=== PATIENT | female | born 1965 | race Caucasian/White ===

== ENCOUNTER → 2018-03-08 | Outpatient (CLI) | payer OTHER ==
[~2018-03-08] MED LIST: ACET325 GT; ACET325 PO; ACET325 PT; ACET325S PR; ACET325UDC PT; ACIDOPHILUS PR1 EAC1 PT; ALBU3IS INH; AMOCLA875 PO; AZIT250 PT; AZIT500 PO; BACL10; BACL10 GT; BACL10 PO; BACL10 PT; BISA10S PR; Banatrol1 EACH PO; CALCA400CH PO; CALCAVITD PO; CALMOSEPTINE; CALMOSEPTINE O3.5 GM TP; CAMPHETO TOP; CEFP200 PO; CEPH250SUA PO; CEPH500 PO; CEPH500 PT; CHLO10; CHLO10 PO; CHLORHEXIDINE FL1 ML; CHLORHEXIDINE FL1 ML PT; COPAXONE; COPAXONE SQ; COUMADIN; CVS DISPOSABLE399 ML PR; CYCL10 PT; Cephalexin250 MG/5 M PO; Cipro500 MG PO; Cleocin HCl150 MG PO; Colace100 MG PO; Coumadin5 MG PO; DICY20; DOC100SO PT; DOC250 PO; DOC250 PT; DOCU100 GT; DOCU100 PO; DOCU100 PT; DOCUSATE SODIUM; DOCUSATE SODIUM PT; DSS PT; DURAGESIC; Diflucan200 MG PO; Diflucan200 MG PT; Docu Liqui50 MG/5 ML PT; Duoneb 2.5-0.5 M3 ML INH; Duragesic 12 M12 MCG TD; ESOM20; ESOM20 GT; ESOM20 PO; FAMO40 PO; FENT25TP TOP; FENT50TP TOP; FENT75TP TOP; FERSU220EL PT; FLUC150A GT; FLUC150A PO; FLUC200 PO; FLUC200 PT; FLUO20 GT; FLUO20 PO; Flonase 0.05% N16 GM; Flovent Diskus50 MCG; GABA250SO GT; GABA250SO PO; GABA250SO PT; GABA300; GABA600 PO; GLYC2 PO; GOLD BOND MEDI TP; HEMOTC PR; HYDACE5 GT; HYDACE5 PO; HYDCOR1TC TOP; HYDR1TAB94 PO; HYDR1TAB94 PT; IBUP100S PT; IBUP400 PT; Ibuprofen Ib200 MG PO; JEVITY; JEVITY 1.2; JEVITY CA PT; Keflex500 MG PO; LACTOBACILLUS ACIDOP; LANS30EC PO; LANTISEPTIC OI113 GM; LANTISEPTIC400 GM TP; LAVAP17G PO; LAVAP17G PT; LEVO750 PT; LORA.5 PO; LORA.5 PT; LORA1 GT; LORA1 PO; LORA1 PT; Levaquin500 MG PT; METO25ER PO; METO5A PO; METO5A PT; METOPROLOL; MICO100S; MIDO5 PT; MOMCAS15 PO; MOMENI; MOMENI INH; MYLANTA; Milk Of Ma400 MG/5 M PR; Milk Of Ma400 MG/5 M PT; Mylanta Gas Ma125 MG PO; NAPR500 PO; NEBI5 PO; NEBI5 PT; NITR100; NITR100 PT; NORT10; NYST100P TOP; NYST100SU PT; NYSTATIN POWDER; NYSTATIN1 EAC1 TOP; OMEP20ER PO; POLY17UD GT; POLY17UD PO; POTA20LUD PT; PRED5 PO; PRED5 PT; PROACE100 PO; PROBIOTIC & AC1 EACH PT; PROM50S PR; PROP20 PO; PROP60 PO; Prevacid Soluta30 MG PT; Prozac20 MG PT; Questran4 GM PT; RXPROM25 PO; RXTRAM50 PO; SULTRIDS PO; SULTRIEL PO; SULTRIEL PT; Silvadene20 GM TOP; Spironolactone25 MG PT; Stool Softener100 MG PT; TETR.05OPS BOTHEYES; TRAM50 GT; TRAM50 PO; TRAM50 PT; TRIA55OI; TRIA80TC TOP; TRIPLE ANTIBIOTIC OI; Triple Antibio1 EACH TP; VICKS VAPOR RUB; Ventolin Soln3 ML INH; WARF1; WARF1 PO; WARF2; WARF2 PO; WARF2 PT; WARF2.5 PO; WARF3 PO; WARF5 GT; WARF5 PO; [UNRECOGNIZED DRUG - CODE]; [UNRECOGNIZED DRUG - REMARK]
[2018-03-08 15:34] LABS: Appearance, Urine Hazy (Clear); Bilirubin, Urine Neg (Neg); Blood, Urine 5+ (Neg); Color, Urine Red (P-Yellow); Glucose Qualitative, Urine Neg (Neg); Ketones, Urine Neg (Neg); Leukocyte Esterase, Urine Neg (Neg); Nitrite, Urine Neg (Neg); Protein, Urine 3+ (Neg); Specific Gravity, Urine 1.015 (1.003-1.022); Urobilinogen, Urine NORM (Normal)
[2018-03-08 15:40] LABS: Bacteria Many /hpf; Red Blood Cells, Urine TNTC /hpf (0-2); Squamous Epithelial Cells Not Seen /hpf (Few)
== END ==
LOC: LAB SHORT 15:26 → LAB 15:26
PROVIDERS: Legal Medicine
DX: Z53.9 Procedure and treatment not carried out, unspecified reason (principal)
CPT/HCPCS: 81001

== ENCOUNTER 2018-03-11 08:00 | Emergency (ER) | payer OTHER ==
[~2018-03-11] VITALS: Ht 170.2 cm; Wt 49.9 kg
[~2018-03-11 08:00] MED LIST changes: -CEPH250SUA PO
[2018-03-11] MEDS ORDERED: FENT50TP TOP (08:30)
[2018-03-11] MEDS ORDERED: CEPH250SUA PO (08:30)
[2018-03-11] MEDS ORDERED: HYDR1TAB94 PO (08:31)
[2018-03-11] MEDS ORDERED: TRAM50 PO (08:32)
[2018-03-11 09:49] LABS: BASOPHILS ABSOLUTE AUTO 0.05 K/mm3 (0.00-0.23); BASOPHILS PERCENT AUTO 1 % (0-2); EOSINOPHILS ABSOLUTE AUTO 0.16 K/mm3 (0.00-0.68); EOSINOPHILS PERCENT AUTO 2 % (0-6); Hematocrit 42.9 % (33.0-51.0); Hemoglobin 13.9 g/dL (11.5-16.0); IMMATURE GRAN ABSOLUTE AUTO 0.02 K/mm3 (0.00-0.10); IMMATURE GRAN PERCENT AUTO 0 % (0-1); LYMPHOCYTES ABSOLUTE AUTO 2.04 K/mm3 (0.84-5.20); LYMPHOCYTES PERCENT AUTO 25 % (21-46); MONOCYTES ABSOLUTE AUTO 0.57 K/mm3 (0.16-1.47); MONOCYTES PERCENT AUTO 7 % (4-13); Mean Corpuscular HGB 29.8 pg (26.0-34.0); Mean Corpuscular HGB Conc 32.4 g/dL (31.5-36.5); Mean Corpuscular Volume 92 fL (80-100); Mean Platelet Volume 8.9 fL (9.1-12.4); NEUTROPHILS ABSOLUTE AUTO 5.36 K/mm3 (1.96-9.15); NEUTROPHILS PERCENT AUTO 65 % (41-73); Platelet Count 217 K/mm3 (150-400); RDW Coefficient Variation 14.1 % (11.7-14.2); RDW Standard Deviation 47.7 fL (35.1-46.3); Red Blood Cell Count 4.67 M/mm3 (3.80-5.20)
[2018-03-11 09:59] LABS: International Normalized Ratio 1.15
[2018-03-11 10:11] LABS: Anion Gap 6 mmol/L (6-16); Blood Urea Nitrogen 10 mg/dL (8-24); Bun/Creatinine Ratio 35.7 (12.0-20.0); CO2, Blood 28 mmol/L (21-32); Calcium, Blood 9.1 mg/dL (8.5-10.1); Chloride, Blood 106 mmol/L (98-108); Creatinine, Blood 0.28 mg/dL (0.40-1.00); Glomerular Filtration Rate >60 (60-); Glucose, Blood 89 mg/dL (70-99); Potassium, Blood 3.9 mmol/L (3.5-5.5); Sodium, Blood 140 mmol/L (136-145)
== END 2018-03-11 12:14 | disposition home or self-care (01) ==
LOC: ER 08:00
PROVIDERS: Emergency Medicine
DX: N95.0 Postmenopausal bleeding (principal); R33.9 Retention of urine, unspecified; K21.9 Gastro-esophageal reflux disease without esophagitis; F32.9 Major depressive disorder, single episode, unspecified; F41.9 Anxiety disorder, unspecified; Z88.5 Allergy status to narcotic agent; Z87.01 Personal history of pneumonia (recurrent); Z86.711 Personal history of pulmonary embolism; Z79.899 Other long term (current) drug therapy; Z79.52 Long term (current) use of systemic steroids
CPT/HCPCS: 36415; 51702; 74177; 80048; 85025; 85610; 85730; 99284; Q9967

== ENCOUNTER → 2018-03-26 | Outpatient (CLI) | payer OTHER ==
[~2018-03-26] MED LIST changes: +CEPH250SUA PO
[2018-03-26 14:18] LABS: Bilirubin, Urine Neg (Neg); Blood, Urine 5+ (Neg); Glucose Qualitative, Urine Neg (Neg); Ketones, Urine Neg (Neg); Leukocyte Esterase, Urine 3+ (Neg); Nitrite, Urine Neg (Neg); Protein, Urine 1+ (Neg); Urobilinogen, Urine NORM (Normal)
[2018-03-26 14:24] LABS: Appearance, Urine Hazy (Clear); Color, Urine Yellow (P-Yellow)
[2018-03-26 14:27] LABS: Bacteria Many /hpf; Red Blood Cells, Urine 0-2 /hpf (0-2); Squamous Epithelial Cells Few /hpf (Few); White Blood Cells, Urine 25-50 /hpf (0-5)
== END ==
LOC: LAB SHORT 11:29 → OLS 11:29
PROVIDERS: Legal Medicine
DX: N39.0 Urinary tract infection, site not specified (principal)
CPT/HCPCS: 81001; 87077; 87086; 87186

== ENCOUNTER → 2018-04-14 | Outpatient (CLI) | payer OTHER ==
[2018-04-14 15:55] LABS: Appearance, Urine Hazy (Clear); Bilirubin, Urine Neg (Neg); Blood, Urine 3+ (Neg); Color, Urine Yellow (P-Yellow); Glucose Qualitative, Urine Neg (Neg); Ketones, Urine Neg (Neg); Leukocyte Esterase, Urine 3+ (Neg); Nitrite, Urine Neg (Neg); Protein, Urine 2+ (Neg); Urobilinogen, Urine NORM (Normal)
[2018-04-14 16:10] LABS: Bacteria Many /hpf; Squamous Epithelial Cells Few /hpf (Few)
== END ==
LOC: LAB SHORT 13:50 → LAB 13:50
PROVIDERS: Legal Medicine
DX: N39.0 Urinary tract infection, site not specified (principal)
CPT/HCPCS: 81001; 87077; 87086; 87186

== ENCOUNTER 2018-04-25 09:47 | Emergency (ER) | payer OTHER ==
[~2018-04-25] VITALS: Ht 170.2 cm; Wt 57.6 kg
[2018-04-25 10:49] LABS: BASOPHILS ABSOLUTE AUTO 0.04 K/mm3 (0.00-0.23); BASOPHILS PERCENT AUTO 0 % (0-2); EOSINOPHILS ABSOLUTE AUTO 0.09 K/mm3 (0.00-0.68); EOSINOPHILS PERCENT AUTO 1 % (0-6); IMMATURE GRAN ABSOLUTE AUTO 0.05 K/mm3 (0.00-0.10); IMMATURE GRAN PERCENT AUTO 0 % (0-1); LYMPHOCYTES ABSOLUTE AUTO 1.03 K/mm3 (0.84-5.20); LYMPHOCYTES PERCENT AUTO 9 % (21-46); MONOCYTES ABSOLUTE AUTO 0.82 K/mm3 (0.16-1.47); MONOCYTES PERCENT AUTO 7 % (4-13); Mean Corpuscular HGB 29.9 pg (26.0-34.0); Mean Corpuscular HGB Conc 33.3 g/dL (31.5-36.5); Mean Corpuscular Volume 90 fL (80-100); Mean Platelet Volume 9.3 fL (9.1-12.4); NEUTROPHILS ABSOLUTE AUTO 9.84 K/mm3 (1.96-9.15); NEUTROPHILS PERCENT AUTO 83 % (41-73); Platelet Count 206 K/mm3 (150-400); RDW Standard Deviation 46.3 fL (35.1-46.3); Red Blood Cell Count 5.01 M/mm3 (3.80-5.20); White Blood Cell Count 11.87 K/mm3 (4.00-11.30)
[2018-04-25] MEDS ORDERED: Cephalexin250 MG/5 M PO (11:46)
== END 2018-04-25 12:12 | disposition home or self-care (01) ==
LOC: ER 09:47
PROVIDERS: Emergency Medicine
DX: J40 Bronchitis, not specified as acute or chronic (principal); J98.4 Other disorders of lung; F32.9 Major depressive disorder, single episode, unspecified; F41.9 Anxiety disorder, unspecified; Z88.8 Allergy status to other drugs, medicaments and biological substances; Z79.899 Other long term (current) drug therapy; Z79.52 Long term (current) use of systemic steroids; Z79.01 Long term (current) use of anticoagulants
CPT/HCPCS: 36415; 71046; 85025; 99283

== ENCOUNTER 2018-05-04 09:09 | Inpatient (IN) | payer OTHER ==
[~2018-05-04] VITALS: Ht 170.2 cm; Wt 72.1 kg
[~2018-05-04 09:09] MED LIST changes: -LORA.5 PT
[2018-05-04 10:31] LABS: International Normalized Ratio 3.11
[2018-05-04 10:32] LABS: Alanine Aminotransfer (ALT/SGP 25 U/L (12-78); Albumin, Blood 1.7 g/dL (3.4-5.0); Albumin/Globulin Ratio 0.4 (0.8-1.8); Alk Phos 834 U/L (50-136); Anion Gap 10 mmol/L (6-16); Aspartate Aminotrans (AST/SGOT 30 U/L (12-37); Bilirubin, Total 0.7 mg/dL (0.1-1.0); Blood Urea Nitrogen 33 mg/dL (8-24); CO2, Blood 28 mmol/L (21-32); Calcium, Blood 9.3 mg/dL (8.5-10.1); Chloride, Blood 98 mmol/L (98-108); Creatinine, Blood 0.43 mg/dL (0.40-1.00); Globulin, Blood 4.4 g/dL (2.2-4.0); Glomerular Filtration Rate >60 (60-); Glucose, Blood 85 mg/dL (70-99); Potassium, Blood 4.1 mmol/L (3.5-5.5); Sodium, Blood 136 mmol/L (136-145); Total Protein, Blood 6.1 g/dL (6.4-8.2)
[2018-05-04 10:38] LABS: Hematocrit 36.1 % (33.0-51.0); Hemoglobin 11.8 g/dL (11.5-16.0); Mean Corpuscular HGB 29.9 pg (26.0-34.0); Mean Corpuscular HGB Conc 32.7 g/dL (31.5-36.5); Mean Corpuscular Volume 91 fL (80-100); Mean Platelet Volume 8.6 fL (9.1-12.4); NRBC ABSOLUTE 0.03 K/mm3 (0.00-0.02); NRBC Auto 0.3 /100 WBC (0.0-0.2); Platelet Count 118 K/mm3 (150-400); RDW Coefficient Variation 14.2 % (11.7-14.2); RDW Standard Deviation 48.1 fL (35.1-46.3); Red Blood Cell Count 3.95 M/mm3 (3.80-5.20); White Blood Cell Count 10.81 K/mm3 (4.00-11.30)
[2018-05-04 11:04] LABS: BAND PERCENT MAN 26 % (0-8); BASOPHILS PERCENT MAN 1 % (0-2); EOSINOPHILS PERCENT MAN 0 % (0-6); LYMPHOCYTES ABSOLUTE MAN 0.21 K/mm3 (0.84-5.20); LYMPHOCYTES PERCENT MAN 2 % (21-46); METAMYELOCYTE PERCENT MAN 1 % (0-0); MONOCYTES ABSOLUTE MAN 0.64 K/mm3 (0.16-1.47); MONOCYTES PERCENT MAN 6 % (4-13); NEUTROPHILS ABSOLUTE MAN 9.72 K/mm3 (1.96-9.15); SEG NEUTROPHILS PERCENT MAN 64 % (41-73); TOTAL CELLS COUNTED 100
[2018-05-05 05:04] LABS: BASOPHILS ABSOLUTE AUTO 0.02 K/mm3 (0.00-0.23); BASOPHILS PERCENT AUTO 0 % (0-2); EOSINOPHILS PERCENT AUTO 0 % (0-6); Hematocrit 29.2 % (33.0-51.0); Hemoglobin 9.3 g/dL (11.5-16.0); IMMATURE GRAN ABSOLUTE AUTO 0.29 K/mm3 (0.00-0.10); IMMATURE GRAN PERCENT AUTO 2 % (0-1); LYMPHOCYTES ABSOLUTE AUTO 0.66 K/mm3 (0.84-5.20); LYMPHOCYTES PERCENT AUTO 4 % (21-46); MONOCYTES ABSOLUTE AUTO 0.57 K/mm3 (0.16-1.47); MONOCYTES PERCENT AUTO 3 % (4-13); Mean Corpuscular HGB 29.4 pg (26.0-34.0); Mean Corpuscular HGB Conc 31.8 g/dL (31.5-36.5); Mean Corpuscular Volume 92 fL (80-100); Mean Platelet Volume 8.8 fL (9.1-12.4); NEUTROPHILS PERCENT AUTO 92 % (41-73); Platelet Count 148 K/mm3 (150-400); RDW Coefficient Variation 14.6 % (11.7-14.2); RDW Standard Deviation 49.8 fL (35.1-46.3); Red Blood Cell Count 3.16 M/mm3 (3.80-5.20); White Blood Cell Count 18.34 K/mm3 (4.00-11.30)
[2018-05-05 05:20] LABS: Anion Gap 6 mmol/L (6-16); Blood Urea Nitrogen 31 mg/dL (8-24); Bun/Creatinine Ratio 75.4 (12.0-20.0); CO2, Blood 30 mmol/L (21-32); Calcium, Blood 8.2 mg/dL (8.5-10.1); Chloride, Blood 108 mmol/L (98-108); Creatinine, Blood 0.41 mg/dL (0.40-1.00); Glomerular Filtration Rate >60 (60-); Glucose, Blood 130 mg/dL (70-99); Phosphorus, Blood 3.5 mg/dL (2.5-4.9); Potassium, Blood 4.5 mmol/L (3.5-5.5); Sodium, Blood 144 mmol/L (136-145)
[2018-05-05 05:25] LABS: International Normalized Ratio 5.68
[2018-05-05 10:28] LABS: Tobramycin, Random 1.5 ug/mL
[2018-05-06 06:01] LABS: BASOPHILS ABSOLUTE AUTO 0.02 K/mm3 (0.00-0.23); BASOPHILS PERCENT AUTO 0 % (0-2); EOSINOPHILS ABSOLUTE AUTO 0.07 K/mm3 (0.00-0.68); EOSINOPHILS PERCENT AUTO 1 % (0-6); Hematocrit 27.8 % (33.0-51.0); Hemoglobin 8.7 g/dL (11.5-16.0); IMMATURE GRAN ABSOLUTE AUTO 0.21 K/mm3 (0.00-0.10); IMMATURE GRAN PERCENT AUTO 2 % (0-1); LYMPHOCYTES PERCENT AUTO 13 % (21-46); MONOCYTES ABSOLUTE AUTO 0.74 K/mm3 (0.16-1.47); MONOCYTES PERCENT AUTO 6 % (4-13); Mean Corpuscular HGB 29.4 pg (26.0-34.0); Mean Corpuscular HGB Conc 31.3 g/dL (31.5-36.5); Mean Corpuscular Volume 94 fL (80-100); Mean Platelet Volume 8.5 fL (9.1-12.4); NEUTROPHILS ABSOLUTE AUTO 9.65 K/mm3 (1.96-9.15); NEUTROPHILS PERCENT AUTO 79 % (41-73); Platelet Count 146 K/mm3 (150-400); RDW Coefficient Variation 14.9 % (11.7-14.2); RDW Standard Deviation 50.5 fL (35.1-46.3); Red Blood Cell Count 2.96 M/mm3 (3.80-5.20); White Blood Cell Count 12.29 K/mm3 (4.00-11.30)
[2018-05-06 06:18] LABS: Anion Gap 6 mmol/L (6-16); Blood Urea Nitrogen 27 mg/dL (8-24); Bun/Creatinine Ratio 86.3 (12.0-20.0); CO2, Blood 32 mmol/L (21-32); Calcium, Blood 8.2 mg/dL (8.5-10.1); Chloride, Blood 110 mmol/L (98-108); Creatinine, Blood 0.31 mg/dL (0.40-1.00); Glomerular Filtration Rate >60 (60-); Glucose, Blood 86 mg/dL (70-99); Magnesium, Blood 1.8 mg/dL (1.6-2.4); Phosphorus, Blood 2.5 mg/dL (2.5-4.9); Potassium, Blood 3.6 mmol/L (3.5-5.5); Sodium, Blood 148 mmol/L (136-145)
[2018-05-06 06:27] LABS: International Normalized Ratio 5.56
[2018-05-06 10:38] LABS: Tobramycin, Random 1.2 ug/mL
[2018-05-07 04:07] LABS: BASOPHILS ABSOLUTE AUTO 0.02 K/mm3 (0.00-0.23); BASOPHILS PERCENT AUTO 0 % (0-2); EOSINOPHILS PERCENT AUTO 1 % (0-6); Hematocrit 29.2 % (33.0-51.0); Hemoglobin 9.1 g/dL (11.5-16.0); Mean Corpuscular HGB 28.9 pg (26.0-34.0); Mean Corpuscular HGB Conc 31.2 g/dL (31.5-36.5); Mean Corpuscular Volume 93 fL (80-100); Mean Platelet Volume 8.8 fL (9.1-12.4); Platelet Count 192 K/mm3 (150-400); RDW Coefficient Variation 14.6 % (11.7-14.2); RDW Standard Deviation 49.5 fL (35.1-46.3); Red Blood Cell Count 3.15 M/mm3 (3.80-5.20); White Blood Cell Count 10.79 K/mm3 (4.00-11.30)
[2018-05-07 04:09] LABS: IMMATURE GRAN ABSOLUTE AUTO 0.21 K/mm3 (0.00-0.10); IMMATURE GRAN PERCENT AUTO 2 % (0-1); LYMPHOCYTES ABSOLUTE AUTO 1.95 K/mm3 (0.84-5.20); LYMPHOCYTES PERCENT AUTO 18 % (21-46); MONOCYTES ABSOLUTE AUTO 0.56 K/mm3 (0.16-1.47); MONOCYTES PERCENT AUTO 5 % (4-13); NEUTROPHILS ABSOLUTE AUTO 7.95 K/mm3 (1.96-9.15); NEUTROPHILS PERCENT AUTO 74 % (41-73)
[2018-05-07 04:22] LABS: Anion Gap 4 mmol/L (6-16); Blood Urea Nitrogen 23 mg/dL (8-24); Bun/Creatinine Ratio 86.1 (12.0-20.0); CO2, Blood 34 mmol/L (21-32); Calcium, Blood 7.9 mg/dL (8.5-10.1); Chloride, Blood 110 mmol/L (98-108); Creatinine, Blood 0.27 mg/dL (0.40-1.00); Glomerular Filtration Rate >60 (60-); Glucose, Blood 98 mg/dL (70-99); Magnesium, Blood 1.6 mg/dL (1.6-2.4); Phosphorus, Blood 2.6 mg/dL (2.5-4.9); Potassium, Blood 3.2 mmol/L (3.5-5.5); Sodium, Blood 148 mmol/L (136-145)
[2018-05-07 04:25] LABS: Prothrombin Time Results 49.7 Sec (9.7-11.5)
[2018-05-07 04:26] LABS: International Normalized Ratio 5.3
[2018-05-08 04:34] LABS: International Normalized Ratio 2.19; Prothrombin Time Results 21.6 Sec (9.7-11.5)
[2018-05-08 09:43] LABS: Anion Gap 6 mmol/L (6-16); Blood Urea Nitrogen 17 mg/dL (8-24); CO2, Blood 33 mmol/L (21-32); Calcium, Blood 7.9 mg/dL (8.5-10.1); Chloride, Blood 110 mmol/L (98-108); Creatinine, Blood 0.29 mg/dL (0.40-1.00); Glomerular Filtration Rate >60 (60-); Glucose, Blood 91 mg/dL (70-99); Potassium, Blood 3.4 mmol/L (3.5-5.5); Sodium, Blood 149 mmol/L (136-145)
[2018-05-09 04:14] LABS: International Normalized Ratio 1.48; Prothrombin Time Results 14.9 Sec (9.7-11.5)
[2018-05-09 08:22] LABS: Anion Gap 7 mmol/L (6-16); Blood Urea Nitrogen 11 mg/dL (8-24); Bun/Creatinine Ratio 35.9 (12.0-20.0); CO2, Blood 32 mmol/L (21-32); Calcium, Blood 8.3 mg/dL (8.5-10.1); Chloride, Blood 108 mmol/L (98-108); Creatinine, Blood 0.31 mg/dL (0.40-1.00); Glomerular Filtration Rate >60 (60-); Glucose, Blood 146 mg/dL (70-99); Potassium, Blood 3.6 mmol/L (3.5-5.5); Sodium, Blood 147 mmol/L (136-145)
[2018-05-09] MEDS ORDERED: LORA1 PT (09:28)
[2018-05-09] MEDS ORDERED: BISA10S PR (09:29)
[2018-05-09] MEDS ORDERED: Docu Liqui50 MG/5 ML PO (09:30)
[2018-05-09] MEDS ORDERED: FENT50TP TOP (09:33)
[2018-05-09] MEDS ORDERED: FERROUS SU220 MG/51 PO (09:36)
[2018-05-09] MEDS ORDERED: NYSTRITC TOP (09:44)
[2018-05-09] MEDS ORDERED: NITR100CA PO (09:47)
[2018-05-09] MEDS ORDERED: LORA.5 PT (09:53)
[2018-05-09] MEDS ORDERED: Acidophilus La100 GM PT (21:49)
[2018-05-09] MEDS ORDERED: Metoclopramide H5 MG PO (21:53)
== END 2018-05-09 11:27 | disposition home or self-care (01) | DRG 871 ==
LOC: ER 09:09 → PCU 12:11 → MEDS 12:11 → PCU 14:30
PROVIDERS: Emergency Medicine; Hospitalist; Internal Medicine
DX: A41.50 Gram-negative sepsis, unspecified (principal); J18.9 Pneumonia, unspecified organism; R53.2 Functional quadriplegia; N39.0 Urinary tract infection, site not specified; R65.20 Severe sepsis without septic shock; Z66 Do not resuscitate; Z99.3 Dependence on wheelchair; Z87.01 Personal history of pneumonia (recurrent); F41.8 Other specified anxiety disorders; J98.6 Disorders of diaphragm; G35 Multiple sclerosis; K21.9 Gastro-esophageal reflux disease without esophagitis; G90.4 Autonomic dysreflexia; Z79.01 Long term (current) use of anticoagulants; N20.0 Calculus of kidney; Z86.718 Personal history of other venous thrombosis and embolism; Z79.52 Long term (current) use of systemic steroids; G90.9 Disorder of the autonomic nervous system, unspecified
CPT/HCPCS: 31720; 36415; 71045; 76770; 80048; 80053; 80200; 82947; 83605; 83735; 84100; 85025; 85610; 85730; 87040; 87077; 87086; 87186; 93005; 93010; 94640; 94762; 96365; 96367; 99285; C1751; J0696; J0713; J1956; J2405; J3010; J3260; J7030; J7120

== ENCOUNTER 2018-05-09 17:27 | Inpatient (IN) | payer OTHER ==
[~2018-05-09] VITALS: Ht 160 cm; Wt 60.9 kg
[~2018-05-09 17:27] MED LIST changes: +Docu Liqui50 MG/5 ML PO; +FERROUS SU220 MG/51 PO; -LANTISEPTIC OI113 GM; +LANTISEPTIC OI113 GM TOP; +LORA.5 PT; -Milk Of Ma400 MG/5 M PR; +Milk Of Magnesia PT; +NITR100CA PO; +NYSTRITC TOP; -PRED5 PO; +Tetrahydrozolin15 ML BOTHEYES
[2018-05-09 18:43] LABS: PO2 Arterial 63.1 mmHg (80-100); pH Blood Arterial 7.47 (7.35-7.45)
[2018-05-09] MEDS ORDERED: Acidophilus La100 GM PT (21:49)
[2018-05-09] MEDS ORDERED: Metoclopramide H5 MG PO (21:53)
[2018-05-10 04:47] LABS: BASOPHILS ABSOLUTE AUTO 0.03 K/mm3 (0.00-0.23); BASOPHILS PERCENT AUTO 0 % (0-2); EOSINOPHILS ABSOLUTE AUTO 0.09 K/mm3 (0.00-0.68); EOSINOPHILS PERCENT AUTO 1 % (0-6); Hematocrit 34.1 % (33.0-51.0); Hemoglobin 10.6 g/dL (11.5-16.0); IMMATURE GRAN ABSOLUTE AUTO 0.13 K/mm3 (0.00-0.10); IMMATURE GRAN PERCENT AUTO 1 % (0-1); LYMPHOCYTES ABSOLUTE AUTO 1.97 K/mm3 (0.84-5.20); LYMPHOCYTES PERCENT AUTO 15 % (21-46); MONOCYTES ABSOLUTE AUTO 0.49 K/mm3 (0.16-1.47); MONOCYTES PERCENT AUTO 4 % (4-13); Mean Corpuscular HGB 28.7 pg (26.0-34.0); Mean Corpuscular HGB Conc 31.1 g/dL (31.5-36.5); Mean Corpuscular Volume 92 fL (80-100); Mean Platelet Volume 8.3 fL (9.1-12.4); NEUTROPHILS ABSOLUTE AUTO 10.33 K/mm3 (1.96-9.15); NEUTROPHILS PERCENT AUTO 79 % (41-73); Platelet Count 307 K/mm3 (150-400); RDW Coefficient Variation 15.1 % (11.7-14.2); RDW Standard Deviation 49.4 fL (35.1-46.3); Red Blood Cell Count 3.69 M/mm3 (3.80-5.20); White Blood Cell Count 13.04 K/mm3 (4.00-11.30)
[2018-05-10 04:59] LABS: International Normalized Ratio 1.27; Prothrombin Time Results 12.9 Sec (9.7-11.5)
[2018-05-10 05:14] LABS: Anion Gap 7 mmol/L (6-16); Blood Urea Nitrogen 10 mg/dL (8-24); Bun/Creatinine Ratio 35.7 (12.0-20.0); CO2, Blood 29 mmol/L (21-32); Calcium, Blood 8.2 mg/dL (8.5-10.1); Chloride, Blood 110 mmol/L (98-108); Creatinine, Blood 0.28 mg/dL (0.40-1.00); Glomerular Filtration Rate >60 (60-); Glucose, Blood 91 mg/dL (70-99); Potassium, Blood 4.4 mmol/L (3.5-5.5); Sodium, Blood 146 mmol/L (136-145)
[2018-05-10 05:24] LABS: Percent Saturation 11.3 % (15.0-50.0)
[2018-05-11 03:57] LABS: BASOPHILS ABSOLUTE AUTO 0.05 K/mm3 (0.00-0.23); BASOPHILS PERCENT AUTO 0 % (0-2); EOSINOPHILS ABSOLUTE AUTO 0.11 K/mm3 (0.00-0.68); EOSINOPHILS PERCENT AUTO 1 % (0-6); Hemoglobin 10.7 g/dL (11.5-16.0); IMMATURE GRAN ABSOLUTE AUTO 0.08 K/mm3 (0.00-0.10); IMMATURE GRAN PERCENT AUTO 1 % (0-1); LYMPHOCYTES ABSOLUTE AUTO 2.09 K/mm3 (0.84-5.20); LYMPHOCYTES PERCENT AUTO 18 % (21-46); MONOCYTES ABSOLUTE AUTO 0.58 K/mm3 (0.16-1.47); MONOCYTES PERCENT AUTO 5 % (4-13); Mean Corpuscular HGB 29.5 pg (26.0-34.0); Mean Corpuscular HGB Conc 31.5 g/dL (31.5-36.5); Mean Corpuscular Volume 94 fL (80-100); Mean Platelet Volume 8.4 fL (9.1-12.4); NEUTROPHILS ABSOLUTE AUTO 8.95 K/mm3 (1.96-9.15); NEUTROPHILS PERCENT AUTO 76 % (41-73); Platelet Count 332 K/mm3 (150-400); RDW Coefficient Variation 15.3 % (11.7-14.2); RDW Standard Deviation 51.1 fL (35.1-46.3); Red Blood Cell Count 3.63 M/mm3 (3.80-5.20); White Blood Cell Count 11.86 K/mm3 (4.00-11.30)
[2018-05-11 04:10] LABS: International Normalized Ratio 1.53; Prothrombin Time Results 15.4 Sec (9.7-11.5)
[2018-05-11 04:11] LABS: Albumin, Blood 2.2 g/dL (3.4-5.0); Anion Gap 7 mmol/L (6-16); Blood Urea Nitrogen 8 mg/dL (8-24); Bun/Creatinine Ratio 30.2 (12.0-20.0); CO2, Blood 29 mmol/L (21-32); Calcium, Blood 7.9 mg/dL (8.5-10.1); Chloride, Blood 110 mmol/L (98-108); Creatinine, Blood 0.27 mg/dL (0.40-1.00); Glomerular Filtration Rate >60 (60-); Glucose, Blood 129 mg/dL (70-99); Phosphorus, Blood 3.1 mg/dL (2.5-4.9); Potassium, Blood 3.4 mmol/L (3.5-5.5); Sodium, Blood 146 mmol/L (136-145)
[2018-05-12 03:50] LABS: BASOPHILS ABSOLUTE AUTO 0.04 K/mm3 (0.00-0.23); BASOPHILS PERCENT AUTO 0 % (0-2); EOSINOPHILS ABSOLUTE AUTO 0.13 K/mm3 (0.00-0.68); EOSINOPHILS PERCENT AUTO 1 % (0-6); Hematocrit 34.9 % (33.0-51.0); Hemoglobin 10.8 g/dL (11.5-16.0); IMMATURE GRAN ABSOLUTE AUTO 0.07 K/mm3 (0.00-0.10); IMMATURE GRAN PERCENT AUTO 1 % (0-1); LYMPHOCYTES ABSOLUTE AUTO 2.22 K/mm3 (0.84-5.20); LYMPHOCYTES PERCENT AUTO 18 % (21-46); MONOCYTES ABSOLUTE AUTO 0.64 K/mm3 (0.16-1.47); MONOCYTES PERCENT AUTO 5 % (4-13); Mean Corpuscular HGB Conc 30.9 g/dL (31.5-36.5); Mean Corpuscular Volume 94 fL (80-100); Mean Platelet Volume 8.3 fL (9.1-12.4); NEUTROPHILS ABSOLUTE AUTO 9.28 K/mm3 (1.96-9.15); NEUTROPHILS PERCENT AUTO 75 % (41-73); Platelet Count 335 K/mm3 (150-400); RDW Coefficient Variation 15.2 % (11.7-14.2); RDW Standard Deviation 51.1 fL (35.1-46.3); Red Blood Cell Count 3.73 M/mm3 (3.80-5.20); White Blood Cell Count 12.38 K/mm3 (4.00-11.30)
[2018-05-12 04:03] LABS: International Normalized Ratio 1.47; Prothrombin Time Results 14.8 Sec (9.7-11.5)
[2018-05-12 04:08] LABS: Anion Gap 7 mmol/L (6-16); Blood Urea Nitrogen 10 mg/dL (8-24); Bun/Creatinine Ratio 41.3 (12.0-20.0); CO2, Blood 27 mmol/L (21-32); Calcium, Blood 8.2 mg/dL (8.5-10.1); Chloride, Blood 110 mmol/L (98-108); Creatinine, Blood 0.24 mg/dL (0.40-1.00); Glomerular Filtration Rate >60 (60-); Glucose, Blood 127 mg/dL (70-99); Sodium, Blood 144 mmol/L (136-145)
[2018-05-13 04:06] LABS: BASOPHILS ABSOLUTE AUTO 0.03 K/mm3 (0.00-0.23); BASOPHILS PERCENT AUTO 0 % (0-2); EOSINOPHILS PERCENT AUTO 1 % (0-6); Hemoglobin 11.1 g/dL (11.5-16.0); IMMATURE GRAN ABSOLUTE AUTO 0.05 K/mm3 (0.00-0.10); IMMATURE GRAN PERCENT AUTO 0 % (0-1); LYMPHOCYTES ABSOLUTE AUTO 2.23 K/mm3 (0.84-5.20); LYMPHOCYTES PERCENT AUTO 20 % (21-46); MONOCYTES ABSOLUTE AUTO 0.62 K/mm3 (0.16-1.47); MONOCYTES PERCENT AUTO 6 % (4-13); Mean Corpuscular HGB 29.5 pg (26.0-34.0); Mean Corpuscular HGB Conc 31.7 g/dL (31.5-36.5); Mean Corpuscular Volume 93 fL (80-100); Mean Platelet Volume 8.3 fL (9.1-12.4); NEUTROPHILS ABSOLUTE AUTO 8.09 K/mm3 (1.96-9.15); NEUTROPHILS PERCENT AUTO 73 % (41-73); Platelet Count 394 K/mm3 (150-400); RDW Coefficient Variation 15.1 % (11.7-14.2); RDW Standard Deviation 50.4 fL (35.1-46.3); Red Blood Cell Count 3.76 M/mm3 (3.80-5.20); White Blood Cell Count 11.12 K/mm3 (4.00-11.30)
[2018-05-13 04:23] LABS: International Normalized Ratio 1.75; Prothrombin Time Results 17.5 Sec (9.7-11.5)
[2018-05-13 04:25] LABS: Alanine Aminotransfer (ALT/SGP 20 U/L (12-78); Albumin, Blood 2.5 g/dL (3.4-5.0); Albumin/Globulin Ratio 0.7 (0.8-1.8); Alk Phos 215 U/L (50-136); Anion Gap 8 mmol/L (6-16); Aspartate Aminotrans (AST/SGOT 18 U/L (12-37); Bilirubin, Total 0.2 mg/dL (0.1-1.0); Blood Urea Nitrogen 9 mg/dL (8-24); Bun/Creatinine Ratio 35.4 (12.0-20.0); CO2, Blood 26 mmol/L (21-32); Calcium, Blood 8.4 mg/dL (8.5-10.1); Chloride, Blood 110 mmol/L (98-108); Creatinine, Blood 0.25 mg/dL (0.40-1.00); Globulin, Blood 3.7 g/dL (2.2-4.0); Glomerular Filtration Rate >60 (60-); Glucose, Blood 107 mg/dL (70-99); Potassium, Blood 3.8 mmol/L (3.5-5.5); Sodium, Blood 144 mmol/L (136-145); Total Protein, Blood 6.2 g/dL (6.4-8.2)
[2018-05-14 05:17] LABS: BASOPHILS ABSOLUTE AUTO 0.05 K/mm3 (0.00-0.23); BASOPHILS PERCENT AUTO 0 % (0-2); EOSINOPHILS ABSOLUTE AUTO 0.09 K/mm3 (0.00-0.68); EOSINOPHILS PERCENT AUTO 1 % (0-6); Hematocrit 34.7 % (33.0-51.0); Hemoglobin 10.7 g/dL (11.5-16.0); IMMATURE GRAN ABSOLUTE AUTO 0.03 K/mm3 (0.00-0.10); IMMATURE GRAN PERCENT AUTO 0 % (0-1); LYMPHOCYTES ABSOLUTE AUTO 2.31 K/mm3 (0.84-5.20); LYMPHOCYTES PERCENT AUTO 20 % (21-46); MONOCYTES ABSOLUTE AUTO 0.68 K/mm3 (0.16-1.47); MONOCYTES PERCENT AUTO 6 % (4-13); Mean Corpuscular HGB 28.5 pg (26.0-34.0); Mean Corpuscular HGB Conc 30.8 g/dL (31.5-36.5); Mean Corpuscular Volume 92 fL (80-100); Mean Platelet Volume 8.8 fL (9.1-12.4); NEUTROPHILS ABSOLUTE AUTO 8.59 K/mm3 (1.96-9.15); NEUTROPHILS PERCENT AUTO 73 % (41-73); Platelet Count 328 K/mm3 (150-400); RDW Coefficient Variation 15.3 % (11.7-14.2); RDW Standard Deviation 50.4 fL (35.1-46.3); Red Blood Cell Count 3.76 M/mm3 (3.80-5.20); White Blood Cell Count 11.75 K/mm3 (4.00-11.30)
[2018-05-14 05:27] LABS: International Normalized Ratio 2.07; Prothrombin Time Results 20.5 Sec (9.7-11.5)
[2018-05-14 06:23] LABS: Alanine Aminotransfer (ALT/SGP 20 U/L (12-78); Albumin, Blood 2.5 g/dL (3.4-5.0); Albumin/Globulin Ratio 0.6 (0.8-1.8); Alk Phos 208 U/L (50-136); Anion Gap 7 mmol/L (6-16); Aspartate Aminotrans (AST/SGOT 13 U/L (12-37); Bilirubin, Total 0.2 mg/dL (0.1-1.0); Blood Urea Nitrogen 14 mg/dL (8-24); Bun/Creatinine Ratio 59.1 (12.0-20.0); CO2, Blood 29 mmol/L (21-32); Calcium, Blood 8.4 mg/dL (8.5-10.1); Chloride, Blood 109 mmol/L (98-108); Creatinine, Blood 0.24 mg/dL (0.40-1.00); Glomerular Filtration Rate >60 (60-); Glucose, Blood 90 mg/dL (70-99); Potassium, Blood 3.7 mmol/L (3.5-5.5); Sodium, Blood 145 mmol/L (136-145); Total Protein, Blood 6.5 g/dL (6.4-8.2)
[2018-05-14 06:26] LABS: Percent Saturation 13.8 % (15.0-50.0)
[2018-05-15 05:50] LABS: International Normalized Ratio 2.26; Prothrombin Time Results 22.2 Sec (9.7-11.5)
[2018-05-15] MEDS ORDERED: AMOCLA250S PT (11:55)
== END 2018-05-15 13:59 | DRG 871 ==
LOC: ER 17:27 → PCU 17:28 → MEDS 05-13 11:30 → ENPENDDIS 05-15 10:30 → MEDS 05-15 13:59
PROVIDERS: Internal Medicine
DX: A41.52 Sepsis due to Pseudomonas (principal); J69.0 Pneumonitis due to inhalation of food and vomit; J96.21 Acute and chronic respiratory failure with hypoxia; R53.2 Functional quadriplegia; N39.0 Urinary tract infection, site not specified; G35 Multiple sclerosis; I95.9 Hypotension, unspecified; Z93.0 Tracheostomy status; G90.4 Autonomic dysreflexia; D64.9 Anemia, unspecified; E87.6 Hypokalemia; K21.9 Gastro-esophageal reflux disease without esophagitis; B96.1 Klebsiella pneumoniae [K. pneumoniae] as the cause of diseases classified elsewhere; Z66 Do not resuscitate; Z79.01 Long term (current) use of anticoagulants; Z79.899 Other long term (current) drug therapy; Z86.718 Personal history of other venous thrombosis and embolism; Z90.49 Acquired absence of other specified parts of digestive tract; Z87.440 Personal history of urinary (tract) infections; Z87.01 Personal history of pneumonia (recurrent); Z88.8 Allergy status to other drugs, medicaments and biological substances
CPT/HCPCS: 31720; 36415; 36600; 71045; 80048; 80053; 80069; 82728; 82803; 83540; 83550; 83605; 83735; 84439; 84443; 85025; 85610; 94640; 94760; 94762; 99285-25; C1751; C9113; G0378; J0696; J1650; J2543; J7030

== ENCOUNTER → 2018-05-23 | Outpatient (CLI) | payer OTHER ==
[~2018-05-23] MED LIST changes: +AMOCLA250S PT; +Acidophilus La100 GM PT; +Metoclopramide H5 MG PO
== END | disposition home or self-care (01) ==
LOC: LAB SHORT 05:00 → LAB 05:00
DX: R19.7 Diarrhea, unspecified (principal)
CPT/HCPCS: 87493

== ENCOUNTER → 2018-12-18 | Outpatient (CLI) | payer OTHER ==
[~2018-12-18] MED LIST changes: +**INCOMPLETE MED REC; +A AND D OINTM42.5 GM TOP; +ACIDOPHILUS PR1 EACH PT; +ALBU3IS NEB; +ALUM-MAG HYDRO360 ML PT; +ANTIFUNGAL CREA14 GM TOP; -Acidophilus La100 GM PT; +Artificial Tear15 M4 BOTHEYES; +BACTRIM PT; +CALMOSEPTINE TOP; +CEFP200 PT; +Cyclobenzaprine5 MG PT; +EAR WAX DROPS15 ML BOTHEARS; +FENTANYL1 EAC1 TD; +HYDROCORTISON28.4 G3 TOP; +Kenalog60 ML TOP; -LANTISEPTIC OI113 GM TOP; +LANTISEPTIC TOP; +MIRALAX17 GM PT; +Macrobid 100 M100 MG PT; -Milk Of Magnesia PT; +Pedi-Dri 100,0060 GM TOP; +Preparation H C26 GM PR; -TRIA80TC TOP; +TRIPLE ANTIBIO1 EACH TOP
== END | disposition home or self-care (01) ==
LOC: LAB SHORT 15:30 → LAB 15:30
DX: J95.00 Unspecified tracheostomy complication (principal); J20.8 Acute bronchitis due to other specified organisms
CPT/HCPCS: 87070; 87077; 87185; 87186; 87205

== ENCOUNTER 2018-12-30 15:00 | Inpatient (IN) | payer OTHER ==
[~2018-12-30] VITALS: Ht 170.2 cm; Wt 64.6 kg
[~2018-12-30 15:00] MED LIST changes: -**INCOMPLETE MED REC; -A AND D OINTM42.5 GM TOP; -ACET325 PT; -ACIDOPHILUS PR1 EACH PT; -ALBU3IS NEB; -ALUM-MAG HYDRO360 ML PT; -ANTIFUNGAL CREA14 GM TOP; -Artificial Tear15 M4 BOTHEYES; -BACTRIM PT; -CALMOSEPTINE TOP; -Cyclobenzaprine5 MG PT; -Docu Liqui50 MG/5 ML PO; -EAR WAX DROPS15 ML BOTHEARS; -FENTANYL1 EAC1 TD; -FERROUS SU220 MG/51 PO; -GABA250SO PT; -HYDROCORTISON28.4 G3 TOP; -Kenalog60 ML TOP; -LANTISEPTIC TOP; -MIDO5 PT; -MIRALAX17 GM PT; -Macrobid 100 M100 MG PT; -Metoclopramide H5 MG PO; -POTA20LUD PT; -Pedi-Dri 100,0060 GM TOP; -Preparation H C26 GM PR; -Prevacid Soluta30 MG PT; -TRIPLE ANTIBIO1 EACH TOP; -WARF2
[2018-12-30] MEDS ORDERED: BACTRIM PT (15:25)
[2018-12-30 16:57] LABS: BASOPHILS ABSOLUTE AUTO 0.11 K/mm3 (0.00-0.23); BASOPHILS PERCENT AUTO 0 % (0-2); EOSINOPHILS ABSOLUTE AUTO 0.02 K/mm3 (0.00-0.68); EOSINOPHILS PERCENT AUTO 0 % (0-6); Hematocrit 48.5 % (33.0-51.0); IMMATURE GRAN ABSOLUTE AUTO 0.48 K/mm3 (0.00-0.10); IMMATURE GRAN PERCENT AUTO 2 % (0-1); LYMPHOCYTES ABSOLUTE AUTO 0.42 K/mm3 (0.84-5.20); LYMPHOCYTES PERCENT AUTO 2 % (21-46); MONOCYTES ABSOLUTE AUTO 1.31 K/mm3 (0.16-1.47); MONOCYTES PERCENT AUTO 5 % (4-13); Mean Corpuscular HGB 28.1 pg (26.0-34.0); Mean Corpuscular HGB Conc 30.9 g/dL (31.5-36.5); Mean Corpuscular Volume 91 fL (80-100); Mean Platelet Volume 10.2 fL (9.1-12.4); NEUTROPHILS ABSOLUTE AUTO 26.38 K/mm3 (1.96-9.15); NEUTROPHILS PERCENT AUTO 92 % (41-73); Platelet Count 99 K/mm3 (150-400); RDW Coefficient Variation 18.1 % (11.7-14.2); Red Blood Cell Count 5.33 M/mm3 (3.80-5.20); White Blood Cell Count 28.72 K/mm3 (4.00-11.30)
[2018-12-30 17:36] LABS: Alanine Aminotransfer (ALT/SGP 106 U/L (12-78); Albumin, Blood 2.4 g/dL (3.4-5.0); Albumin/Globulin Ratio 0.5 (0.8-1.8); Alk Phos 671 U/L (50-136); Anion Gap 5 mmol/L (6-16); Aspartate Aminotrans (AST/SGOT 66 U/L (12-37); Blood Urea Nitrogen 18 mg/dL (8-24); Bun/Creatinine Ratio 39.9 (12.0-20.0); CO2, Blood 27 mmol/L (21-32); Calcium, Blood 9.5 mg/dL (8.5-10.1); Chloride, Blood 100 mmol/L (98-108); Creatinine, Blood 0.45 mg/dL (0.40-1.00); Globulin, Blood 4.9 g/dL (2.2-4.0); Glomerular Filtration Rate >60 (60-); Glucose, Blood 106 mg/dL (70-99); Sodium, Blood 132 mmol/L (136-145); Total Protein, Blood 7.3 g/dL (6.4-8.2)
[2018-12-30 18:25] LABS: Chloride (POC) 105 mmol/L (98-108); Creatinine (POC) 0.5 mg/dL (0.6-1.0); Glucose (ISTAT POC) 96 mg/dL (70-99); Potassium (POC) 6.4 mmol/L (3.5-5.5); Sodium (POC) 132 mmol/L (135-148); Total CO2 (POC) 26 mmol/L (21-32)
[2018-12-30 18:27] LABS: Adenovirus Not Detected (NOT DETECT); Bordetella pertussis Not Detected (NOT DETECT); Chlamydophila pneumoniae Not Detected (NOT DETECT); Coronavirus 229E Not Detected (NOT DETECT); Coronavirus HKU1 Not Detected (NOT DETECT); Coronavirus NL63 Not Detected (NOT DETECT); Coronavirus OC43 Not Detected (NOT DETECT); Human Metapneumovirus Not Detected (NOT DETECT); Human Rhinovirus/Enterovirus Not Detected (NOT DETECT); Influenza A Not Detected (NOT DETECT); Influenza A/2009-H1 Not Detected (NOT DETECT); Influenza A/H1 Not Detected (NOT DETECT); Influenza A/H3 Not Detected (NOT DETECT); Influenza B Not Detected (NOT DETECT); Mycoplasma pneumoniae Not Detected (NOT DETECT); Parainfluenza Virus 1 Not Detected (NOT DETECT); Parainfluenza Virus 2 Not Detected (NOT DETECT); Parainfluenza Virus 3 Not Detected (NOT DETECT); Parainfluenza Virus 4 Not Detected (NOT DETECT); Respiratory Syncytial Virus Not Detected (NOT DETECT)
[2018-12-30] MEDS ORDERED: **INCOMPLETE MED REC (19:00)
[2018-12-30] MEDS ORDERED: ACET325 PT (19:06)
[2018-12-30] MEDS ORDERED: ALBU3IS NEB (19:09)
[2018-12-30] MEDS ORDERED: BISA10S PR (19:11)
[2018-12-30] MEDS ORDERED: Docu Liqui50 MG/5 ML PO (19:14)
[2018-12-30] MEDS ORDERED: FENTANYL1 EAC1 TD (19:16)
[2018-12-30] MEDS ORDERED: FERROUS SU220 MG/51 PO (19:17)
[2018-12-30] MEDS ORDERED: Cyclobenzaprine5 MG PT (19:18)
[2018-12-30] MEDS ORDERED: Flonase 0.05% N16 GM (19:23)
[2018-12-30] MEDS ORDERED: GABA250SO PT (19:24)
[2018-12-30] MEDS ORDERED: ACIDOPHILUS PR1 EACH PO (19:25)
[2018-12-30] MEDS ORDERED: Prevacid Soluta30 MG PT (19:26)
[2018-12-30] MEDS ORDERED: Metoclopramide H5 MG PO (19:28)
[2018-12-30] MEDS ORDERED: MIDO5 PT (19:28)
[2018-12-30] MEDS ORDERED: Milk Of Ma400 MG/5 M PT (19:31)
[2018-12-30] MEDS ORDERED: GAVILAX17 GM PO (19:32)
[2018-12-30] MEDS ORDERED: POTA20LUD PT (19:33)
[2018-12-30] MEDS ORDERED: PRED5 PT (19:34)
[2018-12-30] MEDS ORDERED: CVS DISPOSABLE399 ML PR (19:35)
[2018-12-30] MEDS ORDERED: TRAM50 PT (19:37)
[2018-12-30] MEDS ORDERED: WARF2 PT (19:40)
[2018-12-30] MEDS ORDERED: CALMOSEPTINE TOP (19:45)
[2018-12-30] MEDS ORDERED: Preparation H C26 GM PR (19:48)
[2018-12-30] MEDS ORDERED: LANTISEPTIC TOP (19:49)
[2018-12-30] MEDS ORDERED: Kenalog60 ML TOP (19:50)
[2018-12-30] MEDS ORDERED: ALUM-MAG HYDRO360 ML PT (19:51)
[2018-12-30] MEDS ORDERED: HYDR1TAB94 PO (19:52)
[2018-12-30] MEDS ORDERED: Pedi-Dri 100,0060 GM TOP (19:53)
[2018-12-30] MEDS ORDERED: TRIPLE ANTIBIO1 EACH TOP (19:53)
[2018-12-30] MEDS ORDERED: ANTIFUNGAL CREA14 GM TOP (19:55)
[2018-12-30] MEDS ORDERED: IBUP100S PT (19:56)
[2018-12-30] MEDS ORDERED: A AND D OINTM42.5 GM TOP (19:58)
[2018-12-30] MEDS ORDERED: HYDROCORTISON28.4 G3 TOP (19:58)
[2018-12-30] MEDS ORDERED: EAR WAX DROPS15 ML BOTHEARS (19:59)
[2018-12-30] MEDS ORDERED: Macrobid 100 M100 MG PT (20:00)
[2018-12-30] MEDS ORDERED: Artificial Tear15 M4 BOTHEYES (20:01)
[2018-12-30 20:31] LABS: PCO2 Arterial 86.9 mmHg (35-45); PO2 Arterial 62.8 mmHg (80-100); pH Blood Arterial 7.18 (7.35-7.45)
[2018-12-30 22:12] LABS: Source, Urine Catheter
[2018-12-30 22:19] LABS: Appearance, Urine Clear (Clear); Bilirubin, Urine Neg (Neg); Blood, Urine 4+ (Neg); Color, Urine Yellow (P-Yellow); Glucose Qualitative, Urine 2+ (Neg); Ketones, Urine Neg (Neg); Leukocyte Esterase, Urine 3+ (Neg); Nitrite, Urine Pos (Neg); Protein, Urine 3+ (Neg); Urobilinogen, Urine 2+ (Normal)
[2018-12-30 22:32] LABS: Bacteria Many /hpf; Squamous Epithelial Cells Not Seen /hpf (Few); White Blood Cells, Urine 25-50 /hpf (0-5)
[2018-12-31 00:30] LABS: International Normalized Ratio 1.27; Prothrombin Time Results 13.2 Sec (9.7-11.5)
--- NOTE | 2018-12-31 00:30 | NUR ---
ADMIT: PT ARRIVED TO ICU-8 AT 2109. PT MORE LETHARGIC THAN USUAL, PER OSKAR WHO ACCOMPANIES PT & IS CAREGIVER FROM [facility]. PT HAS VERY LIMITED IV ACCESS & PER REPORT, THIS WAS DISCUSSED W PROVIDER IN ER. PT HAS ONE PERIPHERAL IV, BUT IS INSUFFICIENT FOR MULTIPLE ABX & IV FLUIDS. UNABLE TO OBTAIN BLOOD. PT TRACH WAS CHNGED BY DR MOMIN & RT TO 6.0, CUFFED & FENESTRATED. PT WAS PLACED ON VENT: AC20/VT 250/5 PEEP/50% FIO2. CENTRAL LINE WAS PLACED BY DR MOMIN. DR MOMIN ATTEMPTED TO MANIPULATE LINE AFTER XRAY SHOWS IT TO BE DIRECTED TO SUBCLAVIAN VEIN. CATHETER TO BE USED PERIPHERAL ACCESS. LABS SENT. FENTANYL PATCH NOTED TO BE L UPPER CHEST W DATE OF 12/29 & COVERED W CLEAR OCCULSIVE DRSG. CONT TO MONITOR.
[2018-12-31 00:38] LABS: PCO2 Arterial 53.4 mmHg (35-45); PO2 Arterial 56.9 mmHg (80-100); pH Blood Arterial 7.37 (7.35-7.45)
[2018-12-31 05:48] LABS: Hematocrit 35.7 % (33.0-51.0); Hemoglobin 11.3 g/dL (11.5-16.0); Mean Corpuscular HGB Conc 31.7 g/dL (31.5-36.5); Mean Corpuscular Volume 89 fL (80-100); Mean Platelet Volume 9.1 fL (9.1-12.4); Platelet Count 103 K/mm3 (150-400); RDW Coefficient Variation 17.9 % (11.7-14.2); RDW Standard Deviation 56.7 fL (35.1-46.3); Red Blood Cell Count 4.03 M/mm3 (3.80-5.20); White Blood Cell Count 18.89 K/mm3 (4.00-11.30)
--- NOTE | 2018-12-31 06:00 | NUR ---
PT BP TRENDING 80'S SYSTOLIC & MAPS 60. SPOKE W DR CASH TO CLARIFY RE USE OF PRESSORS IT IS UNCLEAR IF THIS IS WITHIN GOALS OF PLAN OF CARE FOR PT, WHO IS DNR STATUS. WILL BOLUS IV FLUID & REPORT EFFECT. PT WAS MED W MIDODRINE EARLIER & IS ONE OF HER ROUTINE MEDS. PT TEMP NOTED INCREASED TO 101.6 & TACHY INCREASED TO 130. NO STOOL YET, AFTER KAYEXALATE.
[2018-12-31 06:11] LABS: Anion Gap 5 mmol/L (6-16); Blood Urea Nitrogen 18 mg/dL (8-24); Bun/Creatinine Ratio 24.4 (12.0-20.0); CO2, Blood 27 mmol/L (21-32); Calcium, Blood 8.8 mg/dL (8.5-10.1); Chloride, Blood 104 mmol/L (98-108); Creatinine, Blood 0.74 mg/dL (0.40-1.00); Glomerular Filtration Rate >60 (60-); Glucose, Blood 105 mg/dL (70-99); Potassium, Blood 5.4 mmol/L (3.5-5.5); Sodium, Blood 136 mmol/L (136-145)
--- NOTE | 2018-12-31 07:30 | NUR ---
ASSUMED CARE: PT IS VENTED. PT HAS A TRACH WHICH IS 6.0 - UNCUFFED. PT IS RESPONSIVE TO PAIN BUT NOT TO VOICE. PT IS NON-VERBAL. PT SEEMED TO BE COMFORTABLE. PT IS FEBRILE 102.0
--- NOTE | 2018-12-31 11:18 | NUR ---
0800-PT SEEN BY DR. KISER SAT. UPDATED HER OF PT'S STATUS. 1030-DR. MARSHALL CAME BY TO SEE PATIENT. UPDATED HIM OF PT'S STATUS WELL. PT'S MENTATION PER HOME CARE PERSONNEL, PT IS MOSTLY NON-VERBAL IN VERY RARE OCCASSION PT TALKS BUT SHORT. PT IS MOSTLY SLEEPING THROUGH OUT THE DAY BASELINE. PT NOT FOLLOWING COMMANDS.
--- NOTE | 2018-12-31 12:15 | NUR ---
PT'S MOTHER AT BEDSIDE. OCTAVIO PALLIATIVE RN CAME BY TO TALK TO PT'S MOTHER. MOTHER WANTS TO START PT ON PRESSORS IF NEEDED AND CONTINUE TO PLACE PATIENT ON VENT.
[2018-12-31 14:06] LABS: PCO2 Arterial 43.6 mmHg (35-45); PO2 Arterial 58.7 mmHg (80-100); pH Blood Arterial 7.39 (7.35-7.45)
--- NOTE | 2018-12-31 14:10 | NUR ---
Requested by staff to talk with family to discuss plan of care going forward as pt is currently on a ventilator and her current POLST form states DNR with no ventilation. Abbie is asleep, on a ventilator via her trach (which is an established trach prior to admission.) Her mother, Jenelle, is at the bedside as well as Tawana, the RN from [facility], and another [facility] caregiver. Nursing reports Abbie has a pneumonia, sepsis, and possible UTI. She is currently not on any pressors at this time as directed by her POLST, however nursing reports that pt has rec'd fluid boluses. Her BP is in the 80s systolically. HR 100-110 during my visit. Tawana reports Abbie normally runs low 100s for her heart rated and 80-100 for a SBP. Abbie takes midodrine at home for BP support. Abbie's face is flushed, which is a chronic symptom for her per Tawana. Explained to Jenelle and Tawana pt's current infection. Jenelle states that Abbie has a twin sister, Fina, who helps to make medical decisions for Abbie. Jenelle states she and Fina discuss treatment options and make decisions together. iFna is working out of town at this time. Tawana reports that she keeps Fina updated on Abbie's status. Jenelle at this time is in agreement that she would like Abbie to continue with ventilator support for the next 3 days or so. She would also like to continue antibiotics and pressor medications to be used if needed during the next few days. Jenelle is aware that this is different from Abbie's POLST form which she and Fina filled out in 2012. Jenelle and Tawana both agree that they want to give "Abbie the best chance to recover." They are open to ventilator support, antibiotics, pressor meds and TFs at this time. They were very clear that pt is not to have any chest compressions. Pt is currently a DNR and has a purple arm band in place. Tawana states she will update Fina on current treatment plan. Jenelle states that 3 of her children have been affected by MS. Abbie has an older sister who is in a chcf in [place] and an older brother who in 2008 from MS complications. In talking with Jenelle, she states her son chose to pursue hospice for himself and this upset her. She states Abbie and her sister are "fighters." Jenelle expresses that she wants to give Abbie every opportunity to recover. This bond writer did not feel that today was the time to have a discussion on quality of life and continued hospitalizations in the future for similar events as Jenelle was visably upset when she spoke of her son chosing hospice. PC will continue to work with pt and family for continued support and education. New POLST form will likely need to be filled out to match families current wishes. Abbie did not awaken during my visit today.
[2018-12-31 16:32] LABS: Source, Urine Catheter
[2018-12-31 16:43] LABS: Bilirubin, Urine Neg (Neg); Blood, Urine 5+ (Neg); Glucose Qualitative, Urine Neg (Neg); Ketones, Urine Neg (Neg); Leukocyte Esterase, Urine 3+ (Neg); Nitrite, Urine Pos (Neg); Protein, Urine 3+ (Neg); Urobilinogen, Urine NORM (Normal)
[2018-12-31 16:57] LABS: Appearance, Urine Turbid (Clear); Color, Urine Amber (P-Yellow)
[2018-12-31 16:59] LABS: Bacteria Many /hpf; Red Blood Cells, Urine TNTC /hpf (0-2); Squamous Epithelial Cells Rare /hpf (Few); White Blood Cells, Urine TNTC /hpf (0-5)
[2018-12-31 17:00] LABS: Transitional Epithelial Cells Rare /hpf (0-Rare)
--- NOTE | 2018-12-31 18:41 | NUR ---
SHIFT SUMMARY: PT IS NON-VERBAL. PT STILL ON AC MODE VENTILATION. PT IS STILL FLUSHED. TEMP 97.9 CURRENTLY. PT'S TEMP WENT UP TO 102.0 THIS MORNING. PT IS TOLERATING TUBE FEEDING AT THIS TIME WITH JEVITY @ 40ML/HR X 4 HOURS THEN WILL BE INCREASED TO 80ML/HR GOAL RATE. PT IS NOT ON ANY SEDATION. PT'S MOTHER AT BEDSIDE SINCE NOON TIME. PT HAD RECEIVED A LITER BOLUS TODAY WITH LR FOR A LOW BLOOD PRESSURE.
--- NOTE | 2018-12-31 19:30 | NUR ---
ASSUMED CARE PT ON VENT VIA 6.0 CUFFED FENESTRATED TRACH, CURRENT VENT SETTINS OF AC20/250/50%/5. PT HAS COPIOUS ORAL SECRETIONS, AND SECRETIONS FROM TRACH THAT ARE CLEAR AND OCCASIONALLY THICK. PT HAS HX MS, IS NONVERBAL AT BASELINE BUT WILL BLINK WHEN ASKED ABOUT QUESTIONS OF PAIN AND OCCASIONALLY SQUEEZE LEFT HAND BUT NOTHING CONSISTENT. UOP ADEQUATE, BP LOW, BUT HER HX AT BASELINE-MAPS >60. TF RESUMED VIA J-TUBE AT 40 WITH PLAN TO INCREASE TO 80ML/HR CONTINUOUSLY PER ORDER. PLAN TO INCREASE TF TO GOAL AND PROVIDE TRACH CARE.
[2019-01-01 04:15] LABS: Hematocrit 31.9 % (33.0-51.0); Hemoglobin 9.9 g/dL (11.5-16.0); Mean Corpuscular HGB 28.1 pg (26.0-34.0); Mean Corpuscular Volume 91 fL (80-100); Mean Platelet Volume 8.9 fL (9.1-12.4); Platelet Count 107 K/mm3 (150-400); RDW Coefficient Variation 18.6 % (11.7-14.2); RDW Standard Deviation 59.6 fL (35.1-46.3); Red Blood Cell Count 3.52 M/mm3 (3.80-5.20); White Blood Cell Count 11.95 K/mm3 (4.00-11.30)
[2019-01-01 04:34] LABS: International Normalized Ratio 1.79
[2019-01-01 04:39] LABS: PCO2 Arterial 46.5 mmHg (35-45); PO2 Arterial 65.3 mmHg (80-100)
[2019-01-01 04:53] LABS: Albumin, Blood 1.6 g/dL (3.4-5.0); Anion Gap 6 mmol/L (6-16); Blood Urea Nitrogen 25 mg/dL (8-24); Bun/Creatinine Ratio 54.1 (12.0-20.0); CO2, Blood 29 mmol/L (21-32); Calcium, Blood 8.3 mg/dL (8.5-10.1); Chloride, Blood 109 mmol/L (98-108); Creatinine, Blood 0.46 mg/dL (0.40-1.00); Glomerular Filtration Rate >60 (60-); Glucose, Blood 258 mg/dL (70-99); Phosphorus, Blood 2.5 mg/dL (2.5-4.9); Sodium, Blood 144 mmol/L (136-145)
[2019-01-01 04:59] LABS: Potassium, Blood 2.9 mmol/L (3.5-5.5)
[2019-01-01 05:26] LABS: BAND PERCENT MAN 1 % (0-8); BASOPHILS PERCENT MAN 0 % (0-2); EOSINOPHILS PERCENT MAN 0 % (0-6); LYMPHOCYTES ABSOLUTE MAN 0.59 K/mm3 (0.84-5.20); LYMPHOCYTES PERCENT MAN 5 % (21-46); MONOCYTES ABSOLUTE MAN 0.11 K/mm3 (0.16-1.47); MONOCYTES PERCENT MAN 1 % (4-13); NEUTROPHILS ABSOLUTE MAN 11.23 K/mm3 (1.96-9.15); SEG NEUTROPHILS PERCENT MAN 93 % (41-73); TOTAL CELLS COUNTED 100
--- NOTE | 2019-01-01 06:16 | NUR ---
SHIFT SUMMARY PATIENT HAS BEEN SINUS TACH 100-120S ALL NIGHT. NO CHANGE TO PREVIOUSLY NOTED VENT SETTINGS. COPIOUS THICK ORAL SECRETIONS EARLIER IN SHIFT, DECREASED THROUGHOUT NIGHT. THIN, ELDER SECRETIONS SUCTIONED FROM TRACHEA. POTASSIUM LEVEL THIS AM WAS 2.[address] FERNANDES AND FIRST OF TWO KCL 20MEQ INFUSING. MAP REMAINS 60-70S; URINE OUTPUT WAS ADEQUATE WITH 550ML. CAREGIVER REPORTS PATIENT IS FLUSH AT BASELINE, HOWEVER, THIS IS "MORE FLUSHED THAN USUAL". COOL CLOTH ON FOREHEAD AND FAN ON PER CAREGIVERS REQUEST.
--- NOTE | 2019-01-01 09:40 | NUR ---
Pt remains on ventilator support via trach without sedation. She is currently sleeping. She is not on any IV pressor support at this time. Marilin, her caregiver from [facility], is at the bedside. No family is currently in her room. Received an update from nursing. PC will continue to work with family re: care plan.
--- NOTE | 2019-01-01 10:45 | NUR ---
PT IN TO VISIT. PT DENIES PAIN OR DISCOMFORT. WILL ENDEVOR TO RESTART AND GET FLUSH BACK ON TRACK.
--- NOTE | 2019-01-01 12:30 | NUR ---
0800 PT FACE AND NECK ARE QUIET RED AND CAREGIVER FROM [facility] INDICATES THIS IS A FREQUENT OCCURANCE. PT IS NONVERBAL AND UNABLE TO FOLLOW ANY COMMNADS. PT LOWER EXT ARE QUITE CONTRACTURED WITH BUE ABLE TO STRAIGHTED BUT FLACCID. NO CURRENT STOOLING NOTED. PEG AND SUPRAPUBIC CATH INTACT. TRACH COLOR IN PLACE. PT ON AC 20,250,50%,5 PEEP. CHANGED TO PS 8/5 AT 40%. PT RR EVEN AND UNLABORED WITH THIN WHITE SX. TRACH DSG CHANGE TO FOLLOW AND WILL ESTABLISH A CANULA CHANGE SCHEDULE.
[2019-01-01 12:58] LABS: Vancomycin, Trough 25.5 ug/mL (5.0-10.0)
[2019-01-01 16:28] LABS: Magnesium, Blood 1.8 mg/dL (1.6-2.4); Phosphorus, Blood 2.1 mg/dL (2.5-4.9); Potassium, Blood 3.4 mmol/L (3.5-5.5); Vancomycin, Random 20.3 ug/mL
--- NOTE | 2019-01-01 17:51 | NUR ---
PT VSS NOTED. I/O. K-PHOS RIDER IN PROGRESS PER ORDER. REMAINS ST. PT STATUS REMAINS STABLE ON PS 06/15 OF 40%.
--- NOTE | 2019-01-01 19:30 | NUR ---
ASSUMED CARE PT REMAINS ON VENT VIA 6.0 CUFFED SHILEY WITH VENT SETTINGS OF PS 8/5 FIO2 40%. PT DOES NOT FOLLOW COMMANDS, WILL OCCASIONALLY BLINK WHEN ASKED SIMPLE QUESTIONS AND SQUEEZE WITH LEFT HAND BUT IT IS NOT CONSISTENT AND THIS IS BASELINE PER CAREGIVERS AT [facility]. LR CONTINUES AT 100ML/HR, K PHOS RIDER INFUSING. TF AT GOAL WITH NO RESIDUAL. CALL OUT TO PRIMARY RN AT [facility], NO CAREGIVERS WILL BE IN AT NIGHT. DURING INITIAL ASSESSMENT TF WAS TURNED OFF BY THEIR STAFF. BP STABLE, EKG SHOWS SR IN THE 90'S.
[2019-01-02 04:55] LABS: Anion Gap 6 mmol/L (6-16); Blood Urea Nitrogen 26 mg/dL (8-24); Bun/Creatinine Ratio 69.9 (12.0-20.0); CO2, Blood 30 mmol/L (21-32); Calcium, Blood 8.2 mg/dL (8.5-10.1); Chloride, Blood 110 mmol/L (98-108); Creatinine, Blood 0.37 mg/dL (0.40-1.00); Glomerular Filtration Rate >60 (60-); Glucose, Blood 232 mg/dL (70-99); Magnesium, Blood 1.9 mg/dL (1.6-2.4); Phosphorus, Blood 3.3 mg/dL (2.5-4.9); Potassium, Blood 4.1 mmol/L (3.5-5.5); Sodium, Blood 146 mmol/L (136-145)
[2019-01-02 04:56] LABS: International Normalized Ratio 1.67; Prothrombin Time Results 16.9 Sec (9.7-11.5)
--- NOTE | 2019-01-02 06:22 | NUR ---
SHIFT SUMMARY NO ACUTE CHANGES OVERNIGHT. PT REMAINS ON PS 8/5 FIO2 40% VIA TRACH. PT IS NONVERBAL WITH EXTREMITY CONTRACTURES REQUIRING FREQUENT REPOSITIONING. TF REMAINS AT GOAL WITH MINIMAL RESIDUALS, SUPRAPUBIC SITE DRESSING CHANGED AND REMAINS C/D/I. VSS, EKG SHOWS SR IN THE 90'S AND O2 SATS IN THE MID 90'S. LR AT 100ML/HR.
--- NOTE | 2019-01-02 07:20 | NUR ---
Recieved report from Migdalia HERNÁNDEZ. Patient lying in bed to right side with HOB at 30 degrees. She is very contracted and needs many pillows to position for comfort.She has 6.0 DCF trach and is on spontaneous 8/5 at 40% and sats 98%. She has 20ga IV dressing intact and site WNL's and is flushed and SL. She also has quad lumen CL in LIJ and lines flushed new caps and is SL. She has permanant feeding tube in place infusingJevity 1.5 at 80ml's nad q4 flushes. She has trevizo in place draining to gravity clear yellow urine. She makes little eye contact and to vervbal response.
--- NOTE | 2019-01-02 09:30 | NUR ---
Patient repositioned with help of physician primary care sports medicine and attends clean. Her face turns purple when laying her flat and she has lots of clear secretions, tube feeding off prior to positioning. LR has been dc'd and Dr Ford was in to see patient and changed Abx.
--- NOTE | 2019-01-02 11:30 | NUR ---
Patient has large liquid BM when reposuitioning and changed linen and attends. No other significant changes. Dr Ford discussed about placing trach collar and removing vent that remains on spontaneous and she turned 5/5 and will re evaluate in a little bit. VSS
--- NOTE | 2019-01-02 13:30 | NUR ---
Will have Rt talk with Dr Ford to see if she is ready to switch over. No other changes.
--- NOTE | 2019-01-02 15:30 | NUR ---
Patient placed on trach collar at 3 L O2 and sats 95-97%. No other significant changes with VS or gtts and or TF.
--- NOTE | 2019-01-02 19:15 | NUR ---
ASSUMING CARE OF PT AT THIS TIME. PT REPORT RECEIVED AT BEDSIDE WITH OFFGOING NURSE, PADMAJA HERNÁNDEZ. PT LAYING IN BED, AWAKE UPON ENTERING THE ROOM. VS STABLE - SEE VS FS. PT DOES NOT APPEAR TO BE IN DISTRESS AT THIS TIME. WILL REVIEW PLAN OF CARE.
--- NOTE | 2019-01-02 19:30 | NUR ---
ASSESSMENT PT RESPONDS TO PAINFUL STIMULI, SPONT OPENS EYES, NO TRACKING WITH EYES, NORMAL FLEXION TO PAIN, CALM, QUIET, COOPERATIVE, NO PURPOSEFUL MOVEMENT, DOES NOT FOLLOW COMMANDS, DOES NOT NOD Y/N TO QUESTIONS, NONVERBAL AT BASELINE. ANA SENSATION. NO MOVEMENT OF EXTREMETIES NOTED. CONTRACTURES BILAT LEGS. HX OF MS. NO S/SX OF PAIN/DISCOMFORT NOTED. LUNGS COARSE, DIMINISHED LOWER LOBES. TRACH COLLAR WITH 3L OXYGEN. OXY SAT >90%. RR 14. SHALLOW BREATHING. SUCTION VIA TRACH: MOD AMOUNTS OF THICK WHITE SECRETIONS. TRACH CARE COMPLETED: GAUZE SATURATED WITH THICK WHITE SECRETIONS. AFEBRILE. NSR. HR 70'S. BP STABLE - SEE VS FS. STRONG RADIAL PULSES. FAINT TIBIAL AND PEDAL PULSES. TRACE EDEMA NOTED. WARM, PALE SKIN. HYPERACTIVE BT X4 QUADRANTS. ABD MILD DIST, SOFT, NONTENDER. PEG TUBE IN PLACE. TF: JEVITY 1.5 AT GOAL RATE 80 ML/HR AND 30 ML FLUSH Q4 HR. RESIDUAL 0. NO N/V. NO BM. SUPRA-PUBIC CATHETER - CLEAR, YELLOW URINE: GAUZE CHANGED, PREVIOUS GAUZE C/D/I. ATTENDS IN PLACE D/T INCONTINENCE. CL LEFT IJ. LR TKO AT 10 ML/HR.
[2019-01-03 03:09] LABS: BASOPHILS ABSOLUTE AUTO 0.01 K/mm3 (0.00-0.23); BASOPHILS PERCENT AUTO 0 % (0-2); EOSINOPHILS PERCENT AUTO 0 % (0-6); Hematocrit 30.9 % (33.0-51.0); Hemoglobin 9.7 g/dL (11.5-16.0); IMMATURE GRAN ABSOLUTE AUTO 0.07 K/mm3 (0.00-0.10); IMMATURE GRAN PERCENT AUTO 1 % (0-1); LYMPHOCYTES PERCENT AUTO 7 % (21-46); MONOCYTES ABSOLUTE AUTO 0.52 K/mm3 (0.16-1.47); MONOCYTES PERCENT AUTO 7 % (4-13); Mean Corpuscular HGB 27.7 pg (26.0-34.0); Mean Corpuscular HGB Conc 31.4 g/dL (31.5-36.5); Mean Platelet Volume 9.2 fL (9.1-12.4); NEUTROPHILS ABSOLUTE AUTO 6.28 K/mm3 (1.96-9.15); NEUTROPHILS PERCENT AUTO 85 % (41-73); NRBC ABSOLUTE 0.02 K/mm3 (0.00-0.02); NRBC Auto 0.3 /100 WBC (0.0-0.2); Platelet Count 124 K/mm3 (150-400); RDW Coefficient Variation 18.6 % (11.7-14.2); RDW Standard Deviation 59.3 fL (35.1-46.3); White Blood Cell Count 7.38 K/mm3 (4.00-11.30)
[2019-01-03 03:10] LABS: Mean Corpuscular Volume 88 fL (80-100)
[2019-01-03 03:23] LABS: International Normalized Ratio 2.62; Prothrombin Time Results 25.4 Sec (9.7-11.5)
[2019-01-03 03:26] LABS: Anion Gap 3 mmol/L (6-16); Blood Urea Nitrogen 28 mg/dL (8-24); Bun/Creatinine Ratio 75.7 (12.0-20.0); CO2, Blood 32 mmol/L (21-32); Calcium, Blood 8.3 mg/dL (8.5-10.1); Chloride, Blood 113 mmol/L (98-108); Creatinine, Blood 0.37 mg/dL (0.40-1.00); Glomerular Filtration Rate >60 (60-); Glucose, Blood 173 mg/dL (70-99); Magnesium, Blood 1.8 mg/dL (1.6-2.4); Phosphorus, Blood 2.5 mg/dL (2.5-4.9); Sodium, Blood 148 mmol/L (136-145)
--- NOTE | 2019-01-03 04:16 | NUR ---
SHIFT ASSESSMENT NO ACUTE CHANGES NOTED T/O SHIFT. PT SLEPT T/O SHIFT. PT RESPONDS TO PAINFUL STIMULI, SPONT OPENS EYES, NO TRACKING WITH EYES, NORMAL FLEXION TO PAIN, CALM, QUIET, COOPERATIVE, NO PURPOSEFUL MVOEMENT, DOES NOT FOLLOW COMMANDS, DOES NOT NOD HEAD Y/N TO QUESTIONS, NONVERBAL AT BASELINE. ANA SENSATION. NO MOVEMENT OF EXTREMETIES NOTED. CONTRACTURES. NO S/SX OF PAIN/DISCOMFORT NOTED T/O SHIFT. LUNGS COARSE, DIMINISHED LOWER LOBES. TRACH COLLAR WITH 3L OXYGEN. OXY SAT REMAINED 90% AND GREATER. RR 11 TO 20'S. SHALLOW BREATHING. SUCTION VIA TRACH: COPIOUS AMOUNTS OF THICK WHITE SECRETIONS. FREQUENT TRACH SUCTIONING REQUIRED. PT ABLE TO COUGH SECRETIONS VIA TRACH. FREQUENT TRACH CARE D/T TRACH GAUZE SATURATED WITH COPIOUS AMOUNTS OF THICK WHITE SECRETIONS. AFEBRILE. NSR TO ST WITH OCC PAC'S. HR 60'S TO 100'S. BP STABLE - SEE VS FS. STRONG RADIAL PULSES. FAINT TIBIAL AND PEDAL PULSES. TRACE EDEMA NOTED. WARM, PALE SKIN. HYPERACTIVE BT X4 QUADRANTS. ABD MILD DIST, SOFT, NONTENDER. PEG TUBE IN PLACE. TF: JEVITY 1.5 AT GOAL RATE 80 ML/HR AND 30 ML FLUSH Q4 HR. RESIDUAL 0. NO N/V. NO BM T/O SHIFT. SUPRA-PUBIC CATHETER: CLEAR, YELLOW URINE. GAUZE CHANGED AROUND SUPRA-PUBIC CATHETER. ATTENDS IN PLACE D/T INCONTIENCE. CL LEFT IJ - SL. WILL CONT TO MONITOR PT AND WILL PROVIDE BEDSIDE REPORT TO ONCOMING NURSE THIS AM.
--- NOTE | 2019-01-03 07:42 | NUR ---
Recieved report from Khadra HERNÁNDEZ. Patient makes minimal eye contact, no verbal sounds and minimal UE movement. She has 6Fr DCF trach with trach collar in place and has 3L O2 bleed in and sats mid 90%'s. She has copius amounts of pink frothy secretions that need constant suctioning to clear. She has 20ga IV in LFA and is flushes and SL. She has quad lumen CL LIJ dressing intact and site WNL's and all lines flushed and caps changed. She has supra pubic cath with light cloudy marcy urine. She is contracted to LE and has padded heel protectors in place. She is pillow all over to positioned for comfort. RT Has placed t in line to trach with suction port to make easier for suctioning. Repositioned q2 with attends check and current clean and dry.
--- NOTE | 2019-01-03 09:46 | NUR ---
Continue to suction pink frothy sputum from patients trach. She continues 3L O2 and sats mid 90%'s. VSS. Repositioned attends clean. Am meds given and Peg tube used and patent.
--- NOTE | 2019-01-03 19:33 | NUR ---
shift summary: Pt was brought over from ICU to room PCU 4 at around 1130 today. Since arrival to unit Pt has been repositioned Q2 hours, has required frequent suctioning from her trach and has TF running in her Peg tube per orders. Peralta frothy sputum is being suctioned from Her trach when needed (about every 1/2 -1 hour). VS have been stable since arrival to unit. Central line to L neck with dressing intact. SL except when IV medications are being given. Caregiveres coming every 2 hours to assist with repositioning. No other changes this shift. Report given to night RN.
[2019-01-04 06:04] LABS: International Normalized Ratio 3.6
--- NOTE | 2019-01-04 06:37 | NUR ---
SHIFT SUMMARY PATIENT CONTINUES TO BE NONVERBAL. PATIENT SPONTANIOUSLY OPENS EYES. PATIENT HAS MINIMAL CONTROL OVER BUE. CAREGIVER'S COME IN AND ASSIST WITH CHANGING ATTENDS AND TURNNING Q2H. CONTINUOUS FEEDING'S RUNNING PER ORDERS AND HAVE BEEN STOPPED 30 MINUTES PRIOR TO TURNING. PATIENT REQUIRING FREQUENT SUCTIONING OF PINK FORTHY SPUTUM THROUGHOUT THE NIGHT. TRACH CARE PROVIDED PER ORDERS. ORAL CARE PROVIDED. VITAL SIGNS CHARTED. PATIENT CURRENTLY APPEARS TO BE ASLEEP. WILL CONTINUE TO MONITOR PATIENT AND REPORT TO ONCOMING RN.
--- NOTE | 2019-01-04 08:39 | NUR ---
Dr. Willingham here at this time to round on the patient.
--- NOTE | 2019-01-04 11:27 | NUR ---
Abbie has been lethargic this morning. She does not open her eyes readily to verbal stimulation. Holding the fentanyl patch until she is more awake.
--- NOTE | 2019-01-04 15:45 | NUR ---
Abbie is awake this afternoon, spontaneously opening her eyes and making movements of her left hand, and shaking her head to questions. Staff caregiveer from her home state she is blinking and slightly squeezing the hand to questions as well. Lethargy from this morning is resolved.
--- NOTE | 2019-01-04 16:20 | NUR ---
gastric residual less than 150 cc.
--- NOTE | 2019-01-04 18:46 | NUR ---
This morning the patient had been lethargic, but this afternoon and evening she has been awake, and showing signs of discomfort; shaking her head during care, grimacing and wincing. Her mother called me this afternoon and we had a discussion about Abbie's usual mentation, and that she has been on the fentanyl patch for many years. I was also unable to locate the previous patch, which was documented as given 3 days go. The patch was therefore placed this evening.
[2019-01-05 05:11] LABS: International Normalized Ratio 2.8
--- NOTE | 2019-01-05 07:37 | NUR ---
SHIFT SUMMARY PATIENT CONTINUES TO BE NONVERBAL. PATIENT APPEARED TO SLEEP WELL THROUGHOUT MOST OF THE NIGHT, PATIENT APPEARED TO BE RESTING COMFORTABLY. PATIENT TURNED Q2H. CATH CARE PROVIDED, WELL ORAL CARE AND TRACH CARE. CONTINUOUS TUBE FEEDING RUNNING PER ORDERS WITH FLUSHES ORDERED. ABX GIVEN PER ORDRES. PATIENT GETS VERY FLUSHED QUICKLY WHEN SHE GETS WARM. TEMP IN ROOM TURNED DOWN AND FANS SET TO HELP COOL PATIENT DOWN. VITAL SIGNS CHARTED. REPORT GIVEN TO ONCOMING RN.
--- NOTE | 2019-01-05 13:54 | NUR ---
PT FEBRILE, APAP GIVEN, DR. MOON NOTIFIED, RT TURNED OFF O2 WARMER, WCTM.
--- NOTE | 2019-01-05 19:34 | NUR ---
SHIF SUMMARY. ALERT MOST OF THE SHIFT, AWAKENS TO VERBAL STIMULI. PT REQUIRED DEEP SUCTIONING APROXIMATLEY EVERY 2-4 HOURS THIS SHIFT. SPUTUM COLOR HAS CHANGED TO WHITE RATHER PINK TODAY. SUPRAPUBIC CATH FLUSHED PER ORDERS. TURN Q2. TF RESIDUAL 80ML WHEN CHECKED 3 TIMES THIS SHIFT. CENTRAL LINE PATENT. PT FEBRILE THIS AFTERNOON, WITH FLUSHED SKIN, APAP GIVEN PER TUBE. RECHECK TEM 99.8. TEMP CHECKED A THIRD TIME AND IT WAS FOUND TO BE 101.8. DR. MOON NOTIFIED, RECIEVED ORDERS FOR CXR AND REPEAR BLODD CULTURES. ICE PACKS APPLIED TO PT, AND FAN PLACED CLOSE TO PT, NO LINEN ON PT.
[2019-01-06 04:25] LABS: International Normalized Ratio 2.11; Prothrombin Time Results 20.9 Sec (9.7-11.5)
--- NOTE | 2019-01-06 05:49 | NUR ---
PCU NOC SHIFT SUMMARY PATIENT NONVERBAL AT BASELINE. EXTREMETY CONTRACTURES NOTED - PATIENT HAS MS AND IS BEDBOUND AT BASELINE. PATIENT HAS TRACH IN PLACE THAT REQUIRES COPIOUS SUCTIONING WITH INLINE SUCTION - HIGH FLOW CONNECTED TO TRACH WITH HUMIDIFIED FIO2 AT 28% T/O SHIFT.PATIENT REPOSITIONED Q2 - NO BOWEL MOVEMENT THIS SHIFT NOTED. PATIENT AT SUPRA PUBIC IN PLACE DRAINING YELLOW URINE. ORAL CARE PERFORMED T/O SHIFT PRN. VSS. NO ACUTE DISTRESS NOTED. WILL CONTINUE TO MONITOR AND REPORT TO DAYSHIFT RN
--- NOTE | 2019-01-06 15:16 | NUR ---
Abbie was resting and appeared comfortable, and well managed. I provided gentle acoustic guitar music for non-pharmaceutical comfort and emotional encouragement. Abbie remained stationary with a peaceful expression.
--- NOTE | 2019-01-06 16:24 | NUR ---
Suctioning done, in-line trache. White thick sputum evacuated. Pt is bringing much of the secretions out of the trache herself. 2 fans placed nearby facing patient for cooling measures, and arms and legs exposed. Thermostat in room set at lowest setting.
--- NOTE | 2019-01-06 18:43 | NUR ---
Vital signs stable today. She has been alert and awake during care, otherwise appears to be sleeping with her eyes closed. Skin is flushed red especially on her face, and flushing on her arms and legs is transient. No significant fever today, cooling measures for flushing were accomplished with fans and reducing linen over the patient. Blood pressure and heart rate stable. Respirations unlabored, and oxygen requirement is also stable. Blood sugars have not required any coverage with sliding scale for at least 48 hours. Tube feeding infusing via PEG tube, with residuals of 10-120 cc today. One liquid bowel movement. Good urine output via urostomy.
[2019-01-07 04:15] LABS: International Normalized Ratio 2.93; Prothrombin Time Results 28.2 Sec (9.7-11.5)
--- NOTE | 2019-01-07 06:13 | NUR ---
SHIFT SUMMARY VITAL SIGNS STABLE TODAY. SHE HAS BEEN ALERT AND ASLEEP ON AND OFF THROUGHOUT CARE. SKIN IS FLUSHED RED IN HER FACE. NO FEVER THIS SHIFT. PT HAS FAN POINTED AT HER FACE. BREATHING IS UNLABORED AND OXYGEN REQUIREMENTS HAVE BEEN STABLE. TUBE FEEDING INF VIA PEG TUBE. ONE LIQUID BOWEL MOVEMENT THIS SHIFT. SUBRAPUBIC CATH IN PLACE PATENT AND DRAINING. WILL CONTINUE TO MONITOR AND REPORT TO ONCOMING RN.
--- NOTE | 2019-01-07 19:24 | NUR ---
SHIFT SUMMARY Assumed care of pt at 0700. Report recieved from Tracy HERNÁNDEZ. Pt has remained on 6 LPM via trach collar for entire shift. This afternoon, pt was having copious amounts of sputum that caused desaturation as low as 83%. This resolved with suctioning. Dr Willingham updated. Scopalamine patch applied. Pt has had several liquid bowel movements with output that varies from clear to light brown. Telemetry removed as pt is now medical floor status without telemetry. No caregivers or other [facility] staff in to see pt today. Bed in lowest position. Call light in reach. Report given to Tracy HERNÁNDEZ.
--- NOTE | 2019-01-08 06:29 | NUR ---
SHIFT SUMMARY PT NONVERBAL. VS STABLE. PT HAS NEEDED FREQUENT SUCTIONING OF COPIOUS THICK SECRETIONS CAUSING THE PT TO DESATURATE TO THE MID 80'S. PT RECOVERS QUICKLY AFTER SUCTIONING. CBG Q6 HAVE BEEN STABLE. PT HAS BEEN REPOSITIONED Q2H. ATTENDS DRY AT THIS TIME. SUPRAPUBIC CATHETER IN PLACE. NO OTHER CHANGES SINCE INITIAL ASSESSMENT. WILL CONTINUE TO MONITOR AND REPORT TO ONCOMING RN.
[2019-01-08 12:43] LABS: Prothrombin Time Results 43.4 Sec (9.7-11.5)
[2019-01-08 12:52] LABS: International Normalized Ratio 4.71
--- NOTE | 2019-01-08 20:02 | NUR ---
SHIFT SUMMARY Assumed care of pt at 0700. Report recieved from Tracy HERNÁNDEZ. No acute changes since shift assessment. Pt required much less suctioning that noted during previous day shift. Plans for pt to discharge today, however pt cannot go to SNF as they do not suction frequently enough (per Migdalia from social science teacher) and [facility] do no administer IV antibiotics. Therefore plan is for pt to remain in hospital until antibiotics are complete. No caregivers or family in to see pt today. Pt's home nurse, Tawana, spend about 30 minutes at the pt's bedside today. Bedside report given to Vladislav dodge RN.
[2019-01-09 05:06] LABS: Hematocrit 37.4 % (33.0-51.0); Hemoglobin 11.5 g/dL (11.5-16.0); Mean Corpuscular HGB 28.4 pg (26.0-34.0); Mean Corpuscular HGB Conc 30.7 g/dL (31.5-36.5); Mean Platelet Volume 8.6 fL (9.1-12.4); Platelet Count 406 K/mm3 (150-400); RDW Coefficient Variation 19.2 % (11.7-14.2); RDW Standard Deviation 64.1 fL (35.1-46.3); Red Blood Cell Count 4.05 M/mm3 (3.80-5.20); White Blood Cell Count 22.07 K/mm3 (4.00-11.30)
[2019-01-09 05:31] LABS: Anion Gap 6 mmol/L (6-16); Blood Urea Nitrogen 36 mg/dL (8-24); Bun/Creatinine Ratio 73.2 (12.0-20.0); CO2, Blood 28 mmol/L (21-32); Calcium, Blood 8.4 mg/dL (8.5-10.1); Chloride, Blood 114 mmol/L (98-108); Creatinine, Blood 0.49 mg/dL (0.40-1.00); Glomerular Filtration Rate >60 (60-); Glucose, Blood 202 mg/dL (70-99); Potassium, Blood 4.4 mmol/L (3.5-5.5); Sodium, Blood 148 mmol/L (136-145)
[2019-01-09 05:52] LABS: Mean Platelet Volume 8.6 fL (9.1-12.4); Platelet Count 429 K/mm3 (150-400)
[2019-01-09 05:56] LABS: Mean Corpuscular Volume 92 fL (80-100)
[2019-01-09 06:08] LABS: Prothrombin Time Results 41.4 Sec (9.7-11.5)
[2019-01-09 06:10] LABS: International Normalized Ratio 4.48
--- NOTE | 2019-01-09 06:28 | NUR ---
ARMORED CAR GUARD AND DRIVER SUMMARY PT REMAINS NON VERBAL WHICH IS BASELINE. CONTRACTED IN BED. Q2H TURNS AND CHANGES. PT HAS CHRONIC SUPRAPUBIC CATHETER BUT HAS BEEN INCONTINENT IN ATTENDS. FLUSHED SUPRAPUBIC CATH WITH NS PER ORDERS, BETTER FLOW AFTER FLUSH BUT PT STILL VOIDING IN ATTENDS. CRITICAL INR AGAIN THIS AM, HOWEVER TRENDING DOWN. DISCUSSED WITH RUM PROCESSING OPERATOR, RYAN. VSS, WILL CONTINUE TO MONITOR.
--- NOTE | 2019-01-09 20:11 | NUR ---
SHIFT SUMMARY Assumed care of pt at 0700 from Vladislav HERNÁNDEZ. Vladislav stated that suprapubic catheter was slow flushing and did not provide any output. Around 0900 this AM, this RN noticed urine output into collecton bag. This changed drainage system and flushed catheter with ease. Pt continued to leak from insertion site. Tawana HERNÁNDEZ from [facility] notified about leakage and resulting perineal redness. Tawana HERNÁNDEZ stated that pt's outpatient urologist wanted 18 FR catheter placed instead of 16 FR catheter. Suprapubic catheter replaced by ATC nurse. 18 FR catheter placed. Pt tolerated well. No new leakage noted from insertion site. One caregiver visited the pt today and rubbed lotion on the pt's arms. She also read a book to the patient. Bed maintained in lowest position. Bedside report given to Krissy HERNÁNDEZ.
[2019-01-10 05:53] LABS: International Normalized Ratio 2.81; Prothrombin Time Results 27.1 Sec (9.7-11.5)
--- NOTE | 2019-01-10 07:47 | NUR ---
shift summary: patient slept well this shift, suctioned several times as needed, changed inner cannula, changed tube feed bag and 3 way valve. vss, no other changes noted, skin care and turning completed per orders.
--- NOTE | 2019-01-10 08:00 | NUR ---
PT LAYING IN BED WITH HER EYES OPEN, SHE IS NONVERBAL AT BASELINE. LUNGS ARE COURSE T/O, RESP EVEN AND UNLABORED, HAS TRACH, WITH INLINE SUCTIONING, IS MOIST, HAS HUMIDITY, HRR, EDEMA NOTED TO B/L LE, IS VERY CONTRACTED, WITH GROSS MOTOR MOVEMENT, BTX4, HAS PEG TUBE IN PLACE FOR FEEDING, FLUSHES WELL, HAD 30MLS OF RESIDULE THIS AM, ATTENDS IN PLACE AND HAS A SUPRA PUBIC CATH, DRAINING WELL, SKIN C/W/D/, JARRETT, CALL LIGHT IN REACH. WILL CHECK ON FREQ, AND TURN Q2 HRS.
--- NOTE | 2019-01-10 13:30 | NUR ---
TURNED, CHANGED, DOING OK, HAS TO BE FREQUENTLY SUCTIONED. CALL LIGHT IN REACH.
--- NOTE | 2019-01-10 19:00 | NUR ---
NO ACUTE CHANGES FOR SIDNEY TODAY, HAS BEEN CHANGED AND TURNED, CALL LIGHT IN REACH.
[2019-01-11 04:55] LABS: Hematocrit 37.9 % (33.0-51.0); Hemoglobin 11.7 g/dL (11.5-16.0); Mean Corpuscular HGB 28.3 pg (26.0-34.0); Mean Corpuscular HGB Conc 30.9 g/dL (31.5-36.5); Mean Corpuscular Volume 92 fL (80-100); Mean Platelet Volume 8.7 fL (9.1-12.4); Platelet Count 523 K/mm3 (150-400); RDW Coefficient Variation 19.2 % (11.7-14.2); RDW Standard Deviation 63.7 fL (35.1-46.3); Red Blood Cell Count 4.14 M/mm3 (3.80-5.20); White Blood Cell Count 16.78 K/mm3 (4.00-11.30)
[2019-01-11 05:11] LABS: Anion Gap 6 mmol/L (6-16); Blood Urea Nitrogen 34 mg/dL (8-24); Bun/Creatinine Ratio 82.7 (12.0-20.0); CO2, Blood 27 mmol/L (21-32); Calcium, Blood 8.6 mg/dL (8.5-10.1); Chloride, Blood 116 mmol/L (98-108); Creatinine, Blood 0.41 mg/dL (0.40-1.00); Glomerular Filtration Rate >60 (60-); Glucose, Blood 75 mg/dL (70-99); Potassium, Blood 3.6 mmol/L (3.5-5.5); Sodium, Blood 149 mmol/L (136-145)
[2019-01-11 05:16] LABS: International Normalized Ratio 2.14; Prothrombin Time Results 21.2 Sec (9.7-11.5)
--- NOTE | 2019-01-11 06:29 | NUR ---
Rn summary: Patient opens eyes spontaniously. Pt has a trach with trach collar, no O2. Pt was suctioned via trach x3 during the night for thin white mucus. Pt had had loose stool x2. Pt has continuous tube feeding via peg tube, tolerating well. Pt has a suprapubic cath with 850cc dk yellow urine. Pt has been repositioned almost every 2 hours during the night. Vital signs have remained stable. Blood sugars q6 and stable at 93 and 101. HOB up at all times due to tube feed. Central line left neck, flushes and draws well. Report to Day shift RN.
--- NOTE | 2019-01-11 17:12 | NUR ---
SHIFT SUMMARY THE PATIENT THIS AM WITH VITALS WNL, RESPOSES TO VOICE, WITH LUNGS SOUND THAT WERE COARSE THROUGHOUT. THE PATIENT HAS NEEDED SUCTIONED OUT THROUGHOUT THE DAY. THE PATIENT'S TUBE FEEDING TUBING WAS CHAGED AT THE START OF DAYSHIFT. THE PATIENT, WENT UP [facility] SHE RECIEVED MEDICATIONS PER ORDERS. THE PATIENT HAS BEEN TURNED BY [employer] [employer] [facility]. THE PATIENT HAS SLEPT OFF AND ON ALL SHIFT AND APPEARS TO BE COMFORTABLE. WILL CONTINUE TO MONITOR.
[2019-01-12 04:49] LABS: International Normalized Ratio 3.38; Prothrombin Time Results 32.1 Sec (9.7-11.5)
--- NOTE | 2019-01-12 06:19 | NUR ---
SHIFT SUMMARY PT NONVERBAL AT BASELINE. VS STABLE. O2 SATS HAVE REMAINED ABOVE 92% ON RA THROUGH TRACH COLLAR. PT HAS REQUIRED FREQUENT SUCTIONING OF WHITE THICK SPUTUM. PT ALSO NEEDS SUCTIONIG OF THE MOUTH ALONG WITH ORAL CARE. PT HAS BEEN REPOSITIONED Q2H. TUBE FEEDING RUNNING CONTINUOUS. ATTENDS DRY AT THIS TIME. NO CHANGES SINCE INITIAL ASSESSMENT. WILL CONTINUE TO MONITOR AND REPORT TO ONCOMING RN.
[2019-01-12 09:24] LABS: Anion Gap 5 mmol/L (6-16); Blood Urea Nitrogen 27 mg/dL (8-24); CO2, Blood 27 mmol/L (21-32); Calcium, Blood 8.4 mg/dL (8.5-10.1); Chloride, Blood 114 mmol/L (98-108); Creatinine, Blood 0.41 mg/dL (0.40-1.00); Glomerular Filtration Rate >60 (60-); Glucose, Blood 84 mg/dL (70-99); Potassium, Blood 3.7 mmol/L (3.5-5.5); Sodium, Blood 146 mmol/L (136-145)
--- NOTE | 2019-01-12 09:25 | NUR ---
The pt awakens to stimuli; She is non verbal. Tracheostomy has large amounts of thin, yellow to white secretions which the pt brings up out of the trache by coughing and also which are evacuated using the inline suctioning in place. She is on blow by humidified air, maintaining spo2 of 95% at this time. Respiratory rate 14-16/minute. Lung sounds are coarse, no wheezing noted. Heart rate 112-130 during care. PEG tube is in place, continuous feedings except for 30 min pause before turning. Medications were given via the PEG. Urostomy tube in place, and clean dry drain sponge was applied to replace the damp gauze found around the insertion site. The pt has some redness with red bumps around the insertion site. Redness with small red flat bumps noted in the groin creases as well as her anrdew area. Nystatin applied as ordered. Pt is having good urine output from the urostomy tube, draining into the Mckeon bag (500 cc) but also some urinary incontinence noted in her attends. No bowel movement yet today.
--- NOTE | 2019-01-12 16:46 | NUR ---
Noted low grade fever about one hour ago, as well as persistent tachycardia at a rate higher than the average the past few days. Tylenol was given, and at this time, Abbie's heart rate is 98-110 bpm, and fever has resolved to 97.2. Abbie appears to be sleeping comfortably with her eyes closed, and respirations are unlabored, even, and regular.
[2019-01-13 05:15] LABS: International Normalized Ratio 3.44; Prothrombin Time Results 32.6 Sec (9.7-11.5)
--- NOTE | 2019-01-13 06:25 | NUR ---
SHIFT SUMMARY PATIENT NON-VERBAL THROUGHOUT THE SHIFT. PATIENT APPEARED TO NAP ON AND OFF LAST NIGHT. PATIENT REQUIRED FREQUENT SUCTIONING OF THIN, WHITE SPUTUM. ORAL CARE PROVIDED. TRACH CARE PROVIDED. PATIENT TURNED Q2H, CAREGIVERS ASSISTED WITH TURNING AND CHANGING EACH TIME. TUBE FEEDINGS AND FLUSHES PER ORDERS. ABX GIVEN PER ORDERS. SEVERAL TIMES THROUGHOUT THE NIGHT PATIENT APPEARED TO HAVE VOIDED INTO HER ATTENDS. PATIENT'S MENDEZ CATHETER WAS FLUSHED AND APPEARED TO DRAIN WELL AFTER. WILL CONTINUE TO MONITOR PATIENT AND REPORT TO ONCOMING RN.
[2019-01-13 09:14] LABS: Hematocrit 38.1 % (33.0-51.0); Hemoglobin 11.6 g/dL (11.5-16.0); Mean Corpuscular HGB 28.1 pg (26.0-34.0); Mean Corpuscular HGB Conc 30.4 g/dL (31.5-36.5); Mean Corpuscular Volume 92 fL (80-100); Mean Platelet Volume 9.4 fL (9.1-12.4); Platelet Count 509 K/mm3 (150-400); RDW Coefficient Variation 18.5 % (11.7-14.2); RDW Standard Deviation 62.6 fL (35.1-46.3); Red Blood Cell Count 4.13 M/mm3 (3.80-5.20); White Blood Cell Count 16.45 K/mm3 (4.00-11.30)
[2019-01-13 09:24] LABS: Anion Gap 11 mmol/L (6-16); Blood Urea Nitrogen 25 mg/dL (8-24); Bun/Creatinine Ratio 65.3 (12.0-20.0); CO2, Blood 24 mmol/L (21-32); Calcium, Blood 8.2 mg/dL (8.5-10.1); Chloride, Blood 113 mmol/L (98-108); Creatinine, Blood 0.38 mg/dL (0.40-1.00); Glomerular Filtration Rate >60 (60-); Glucose, Blood 148 mg/dL (70-99); Potassium, Blood 3.5 mmol/L (3.5-5.5); Sodium, Blood 148 mmol/L (136-145)
--- NOTE | 2019-01-13 19:58 | NUR ---
Abbie was less responsive today. Opened her eyes, but did not seem to be looking around very much, and did not respond to caregivers or family by squeezing their hand. They both tell me that at times she has "days like this". Verbalized concerns this morning to Dr. Hu that her heart rate had been elevated. IV fluid bolus was ordered, and heart rate did come down a little, but has started to trend upwards a little more this evening. Low grade fever also noted this evening. Cooling measures (fan, removal of sheet) were used.
--- NOTE | 2019-01-14 05:39 | NUR ---
SHIFT SUMMARY PT HAS BEEN DROWSY T/O SHIFT. SHE HAS TOLERATED TURNS AND ATTENDS CHANGES WITHOUT ISSUE. PT IS NON VERBAL AT BASELINE. SHE HAS RUN A FEVER T/O MAJORITY OF THE SHIFT. ONLY BREAKING IT THIS AM. PT HEART RATE RAN HIGH DURING MAJORITY OF THE NIGHT, DOWN TO 120S WHEN FEVER BROKE THIS AM. PT HAD SOME DESATURATION ISSUES, BUT THESE CLEARED WITH SUCTIONING OF HER TRACH. PT WAS INCONTINENT OF BOWEL AND BLADDER. SHE HAD A CAREGIVER FROM [facility] COME AND ASSIST WITH TURNS AND CHANGES Q2 HOURS. SHE HAS BEEN ON CONTINUOUS TUBE FEEDINGS WITH PAUSES THIRTY MINUTES PRIOR TO REPOSITIONS. HER OTHER VITALS SHOWED NO ACUTE CHANGES. PRESSURE REMAINED WNL. PT WILL CONTINUE TO BE ROUNDED ON FREQUENTLY AND MONITORED UNTIL HANDOFF TO DAYSHIFT RN.
[2019-01-14 06:58] LABS: Bun/Creatinine Ratio 37.5 (12.0-20.0); Calcium, Blood 8.3 mg/dL (8.5-10.1); Creatinine, Blood 1.2 mg/dL (0.40-1.00); Potassium, Blood 4.3 mmol/L (3.5-5.5)
[2019-01-14 07:11] LABS: International Normalized Ratio 2.07; Prothrombin Time Results 20.5 Sec (9.7-11.5)
[2019-01-14 13:54] LABS: Source, Urine Catheter
[2019-01-14 14:13] LABS: Bilirubin, Urine Neg (Neg); Blood, Urine 5+ (Neg); Glucose Qualitative, Urine Neg (Neg); Ketones, Urine 1+ (Neg); Leukocyte Esterase, Urine 3+ (Neg); Nitrite, Urine Neg (Neg); Protein, Urine 3+ (Neg); Urobilinogen, Urine NORM (Normal)
[2019-01-14 14:40] LABS: Appearance, Urine Cloudy (Clear); Color, Urine Red (P-Yellow)
[2019-01-14 14:41] LABS: Transitional Epithelial Cells Rare /hpf (0-Rare)
[2019-01-14 14:42] LABS: Bacteria Few /hpf; Red Blood Cells, Urine 50-100 /hpf (0-2); Squamous Epithelial Cells Not Seen /hpf (Few); White Blood Cells, Urine 50-100 /hpf (0-5)
--- NOTE | 2019-01-14 15:29 | NUR ---
STAFF GAVE PATRICIO PERMISSION TO PROVIDE CARE 01/15/19.
[2019-01-14 16:32] LABS: Albumin, Blood 1.9 g/dL (3.4-5.0); Anion Gap 6 mmol/L (6-16); Blood Urea Nitrogen 45 mg/dL (8-24); Bun/Creatinine Ratio 38.8 (12.0-20.0); CO2, Blood 30 mmol/L (21-32); Calcium, Blood 8.7 mg/dL (8.5-10.1); Chloride, Blood 109 mmol/L (98-108); Creatinine, Blood 1.16 mg/dL (0.40-1.00); Glomerular Filtration Rate 52 (60-); Glucose, Blood 147 mg/dL (70-99); Sodium, Blood 145 mmol/L (136-145)
--- NOTE | 2019-01-14 17:37 | NUR ---
End of Shift Summary ASSUMED CARE OF THIS PT @0700. PATIENT'S PHYSICAL ABILITY AND RESPONSIVENESS APPEARS TO BE BELOW BASELINE. PT EXTREMITIES CONTRACTED BUT LESS THAN USUAL, MORE FLACCID. PATIENT NOT RESPONDING TO VERBAL STIMULI OR TOUCH. EYES HAVE REMAINED CLOSED T/O SHIFT. PATIENT DOES NOT COUGH / REACT WHEN SUCTIONED LIKE BASELINE. EXTREMITIES HAVE GONE FROM SLIGHLY PINK IN THE AM TO MOTTLED. CREATININE 1.16, GFR 52. DR. ZARCO NOTIFIED. 2 LITERS OF LR ORDERED AND 2ND BAG BEING ADMINISTERED NOW @125MLS/HR. PT HAS REQUIRED INLINE SUCTIONING AND HAS PRODUCED SMALL AMOUNTS OF SECRETIONS. PT CAREGIVERS IN ROOM FOR MAJORITY OF SHIFT TO HELP WITH TURNING. PROVIDER CONSULT CALLED TO INFECTIOUS DISEASE DR FIGUEREDO BY DR ZARCO. MESSAGE LEFT ON VOICEMAIL. POWERGLIDE PLACED LORENA. TUBE FEEDINGS CONTINUE TO BE ADMINISTERED AT A GOALRATE OF 80MLS/HR. UPDATE PROVIDED TO FACILITY RN.
--- NOTE | 2019-01-15 04:41 | NUR ---
SHIFT SUMMARY PATIENT HAS BEEN CALM T/O SHIFT. HER HEART RATE HAS BEEN NSR TO SLIGHTLY TACHY TODAY. SHE HAS BEEN AFEBRILE AND SLEPT WELL. SHE OPENED HER EYES DURING TURNS AND WHEN SPOKEN TOO. PT O2 SATS HAVE BEEN MID 90'S T/O SHIFT. CAREGIVER AT [facility] HAS COME TO ASSIST WITH TURNS Q2 HOURS. PT REMAINS NON VERBAL AND DOES NOT USE CALL LIGHT. SHE HAS GROSS MOVEMENT OF HER EXTREMETIES AND DID NOT DEMONSTRATE ANY S/SX OF PAIN OR DISCOMFORT DURING THE NIGHT. HER VITALS HAVE REMAINED STABLE T/O SHIFT. PT HAS BED IN LOWEST POSITION, 2X SIDE RAILS IN PLACE AND BED ALARM ON FOR SAFETY. PT WILL CONTINUE TO BE MONITORED UNTIL HANDOFF TO DAYSHIFT RN.
[2019-01-15 05:20] LABS: BASOPHILS ABSOLUTE AUTO 0.02 K/mm3 (0.00-0.23); BASOPHILS PERCENT AUTO 0 % (0-2); EOSINOPHILS ABSOLUTE AUTO 0.13 K/mm3 (0.00-0.68); EOSINOPHILS PERCENT AUTO 1 % (0-6); Hematocrit 33.3 % (33.0-51.0); Hemoglobin 10.3 g/dL (11.5-16.0); IMMATURE GRAN ABSOLUTE AUTO 0.05 K/mm3 (0.00-0.10); IMMATURE GRAN PERCENT AUTO 0 % (0-1); LYMPHOCYTES ABSOLUTE AUTO 0.97 K/mm3 (0.84-5.20); LYMPHOCYTES PERCENT AUTO 7 % (21-46); MONOCYTES ABSOLUTE AUTO 1.12 K/mm3 (0.16-1.47); MONOCYTES PERCENT AUTO 8 % (4-13); Mean Corpuscular HGB 28.4 pg (26.0-34.0); Mean Corpuscular HGB Conc 30.9 g/dL (31.5-36.5); Mean Corpuscular Volume 92 fL (80-100); Mean Platelet Volume 8.9 fL (9.1-12.4); NEUTROPHILS ABSOLUTE AUTO 11.59 K/mm3 (1.96-9.15); NEUTROPHILS PERCENT AUTO 84 % (41-73); Platelet Count 328 K/mm3 (150-400); RDW Standard Deviation 61.1 fL (35.1-46.3); Red Blood Cell Count 3.63 M/mm3 (3.80-5.20); White Blood Cell Count 13.88 K/mm3 (4.00-11.30)
[2019-01-15 05:34] LABS: International Normalized Ratio 1.85; Prothrombin Time Results 18.5 Sec (9.7-11.5)
[2019-01-15 05:45] LABS: Albumin, Blood 1.8 g/dL (3.4-5.0); Anion Gap 6 mmol/L (6-16); Blood Urea Nitrogen 37 mg/dL (8-24); CO2, Blood 30 mmol/L (21-32); Calcium, Blood 8.3 mg/dL (8.5-10.1); Chloride, Blood 114 mmol/L (98-108); Creatinine, Blood 0.71 mg/dL (0.40-1.00); Glomerular Filtration Rate >60 (60-); Glucose, Blood 138 mg/dL (70-99); Phosphorus, Blood 3.9 mg/dL (2.5-4.9); Sodium, Blood 150 mmol/L (136-145)
[2019-01-15 13:59] LABS: Alanine Aminotransfer (ALT/SGP 28 U/L (12-78); Albumin, Blood 1.9 g/dL (3.4-5.0); Albumin/Globulin Ratio 0.5 (0.8-1.8); Alk Phos 190 U/L (50-136); Aspartate Aminotrans (AST/SGOT 17 U/L (12-37); Bilirubin, Direct <0.1 mg/dL (0.0-0.3); Bilirubin, Indirect Unable to Calculate mg/dL (0.1-0.7); Bilirubin, Total 0.8 mg/dL (0.1-1.0); Globulin, Blood 3.9 g/dL (2.2-4.0); Total Protein, Blood 5.8 g/dL (6.4-8.2)
--- NOTE | 2019-01-15 14:39 | NUR ---
PCU DAYSHIFT ASSUMED CARE OF PT APPROX. 0700. PT NONVERAL AT BASELINE. PT EYES OPEN AT THIS TIME BUT DOES NOT TRACK WITH EYES. TRACH REMAIN IN PLACE, INTACT AND SUCTIONED NEEDED. PEG TUBE REMAINS IN PLACE AND PATENT. TUBE FEEDINGS RUNNING, ANTHOUGH TUBE FEEDING TURNED OFF 30 MIN BEFORE TURNING. [facility] STAFF HERE TO ASSIST WITH PT TURN EVYER 2 HOURS. S.P. CATHERTER REMAINS IN PLACE, AND DRAINING. SKIN ON PT FACE SLIGHT RED ALONG WITH SOME REDDNESS SCATTERED ON EXTREMITIES. THIS WAS PREVIOUSLY NOTED ON PREVIOUS SHIFTS. NO S/SX OF DISCOMFORT OR ACUTE DISTRESS AT THIS TIME. WILL CONTINUE TO MONITOR. BED IN LOW POSITION. WILL CONTINUE TO MONITOR
[2019-01-15 17:21] LABS: Anion Gap 4 mmol/L (6-16); Blood Urea Nitrogen 24 mg/dL (8-24); Bun/Creatinine Ratio 62.5 (12.0-20.0); CO2, Blood 31 mmol/L (21-32); Calcium, Blood 7.9 mg/dL (8.5-10.1); Chloride, Blood 113 mmol/L (98-108); Creatinine, Blood 0.38 mg/dL (0.40-1.00); Glomerular Filtration Rate >60 (60-); Glucose, Blood 193 mg/dL (70-99); Phosphorus, Blood 2.1 mg/dL (2.5-4.9); Potassium, Blood 4.1 mmol/L (3.5-5.5); Sodium, Blood 148 mmol/L (136-145)
--- NOTE | 2019-01-15 19:39 | NUR ---
SHIFT SUMMARY PT STATUS REMAINS UNCHANGED. PT CONTINUED TO BE TURNED EVERY TWO HOURS. TUBE FEEDING CONTINUES TO BE RAN. TURNED OFF 30 MINUTES BEFORE TURNING EACH TIME. PEG TUBE REMAINS IN PLACE AND INTACT. S.P. CATHETER IN PLACE. PT ASSESSMENT FIDNINGS FROM MORNING REMAINS UNCHANGED.VITAL SIGNS STABLE. BED IN LOW POSITION. WILL CONTINUE TO MONITOR UNTIL HANDOFF TO NIGHTSHIFT RN.
[2019-01-16 04:13] LABS: BASOPHILS ABSOLUTE AUTO 0.02 K/mm3 (0.00-0.23); BASOPHILS PERCENT AUTO 0 % (0-2); EOSINOPHILS ABSOLUTE AUTO 0.27 K/mm3 (0.00-0.68); EOSINOPHILS PERCENT AUTO 3 % (0-6); Hematocrit 32.4 % (33.0-51.0); Hemoglobin 9.6 g/dL (11.5-16.0); IMMATURE GRAN ABSOLUTE AUTO 0.05 K/mm3 (0.00-0.10); IMMATURE GRAN PERCENT AUTO 1 % (0-1); LYMPHOCYTES ABSOLUTE AUTO 1.83 K/mm3 (0.84-5.20); LYMPHOCYTES PERCENT AUTO 20 % (21-46); MONOCYTES ABSOLUTE AUTO 0.75 K/mm3 (0.16-1.47); MONOCYTES PERCENT AUTO 8 % (4-13); Mean Corpuscular HGB 27.5 pg (26.0-34.0); Mean Corpuscular HGB Conc 29.6 g/dL (31.5-36.5); Mean Corpuscular Volume 93 fL (80-100); Mean Platelet Volume 9.1 fL (9.1-12.4); NEUTROPHILS ABSOLUTE AUTO 6.19 K/mm3 (1.96-9.15); NEUTROPHILS PERCENT AUTO 68 % (41-73); Platelet Count 284 K/mm3 (150-400); RDW Coefficient Variation 17.5 % (11.7-14.2); RDW Standard Deviation 60.2 fL (35.1-46.3); Red Blood Cell Count 3.49 M/mm3 (3.80-5.20); White Blood Cell Count 9.11 K/mm3 (4.00-11.30)
[2019-01-16 04:25] LABS: International Normalized Ratio 2.14; Prothrombin Time Results 21.2 Sec (9.7-11.5)
[2019-01-16 04:33] LABS: Albumin, Blood 1.9 g/dL (3.4-5.0); Anion Gap 6 mmol/L (6-16); Blood Urea Nitrogen 18 mg/dL (8-24); Bun/Creatinine Ratio 58.8 (12.0-20.0); CO2, Blood 31 mmol/L (21-32); Calcium, Blood 7.7 mg/dL (8.5-10.1); Chloride, Blood 110 mmol/L (98-108); Creatinine, Blood 0.31 mg/dL (0.40-1.00); Glomerular Filtration Rate >60 (60-); Glucose, Blood 125 mg/dL (70-99); Phosphorus, Blood 1.9 mg/dL (2.5-4.9); Potassium, Blood 3.4 mmol/L (3.5-5.5); Sodium, Blood 147 mmol/L (136-145)
--- NOTE | 2019-01-16 05:47 | NUR ---
SHIFT SUMMARY PATIENT HAD AN UNEVENTFUL EVENING. SHE SLEPT OFF AN ON DURING THE NIGHT, WAKING AT TIMES DURING TURNS AND REPOSITIONS. PT WAS ABLE TO OPEN EYES AT TIMES, BUT DID NOT FOCUS ON STAFF DURING THESE PERIODS. SHE MAINTAINED HER O2 SATS DURING THE NIGHT BUT DID REQUIRE SOME TRACH CARE AND SUCTION TO DO THIS. PT VITALS WERE STABLE AND NO ACUTE CHANGES WERE OBSERVED TO VITALS OR LOC. PT CONTINUED TO BE TURNED Q2 HOURS WITH [facility] STAFF. PT CONINUES TO BE NON VERBAL AND BEDBOUND. SHE WILL CONTINUE TO BE MONITORED UNTIL HANDOFF TO DAYSHIFT RN.
[2019-01-16 16:51] LABS: Albumin, Blood 2.1 g/dL (3.4-5.0); Anion Gap 7 mmol/L (6-16); Blood Urea Nitrogen 13 mg/dL (8-24); Bun/Creatinine Ratio 59.6 (12.0-20.0); CO2, Blood 29 mmol/L (21-32); Calcium, Blood 7.8 mg/dL (8.5-10.1); Chloride, Blood 111 mmol/L (98-108); Creatinine, Blood 0.22 mg/dL (0.40-1.00); Glomerular Filtration Rate >60 (60-); Glucose, Blood 111 mg/dL (70-99); Phosphorus, Blood 2.8 mg/dL (2.5-4.9); Potassium, Blood 4.1 mmol/L (3.5-5.5); Sodium, Blood 147 mmol/L (136-145)
--- NOTE | 2019-01-16 19:33 | NUR ---
SHIFT SUMMARY PT NONVERBAL. VS STABLE. 02 SATS HAVE REMAINED ABOVE 90% ON TRACH COLLAR WITH FI02 OF 28%. LS CRACKLES THROUGHOUT. PT REQUIRED FREQUENT SUCTIONING OF THIN WHITE SECRETIONS. PT REPOSITIONED Q2H. PT HAD MULTIPLE INCONTINENT VOIDS WITH NO OUPUT IN SUPRAPUBIC CATHETER. CATHETER IRRIGATED AND 200 OUPUT IN CATHETER BAG. CLEAR YELLOW URINE DRAINING. PT HAD MULTIPLE LIQUID BM. NO OTHER CHANGES SINCE INITIAL ASSESSMENT. REPORT GIVEN TO INDER FRIZT RN.
--- NOTE | 2019-01-16 22:36 | NUR ---
ASSUMED CARE PATIENT NONVERBAL AND CONTRACTURED AT BASELINE. PATIENTS EYES HAVE REMAIN CLOSED T/O SHIFT AND PATIENT HAS BEEN RESTFUL WITH NO GROSS MOVEMENT NOTED WITH EXTREMETIES PRIOR SHIFTS NOTED LAST WEEK (DISLODGING LINES/TUBES/ETC). PATIENT REPOSITIONED Q2. VSS. RESIDUAL IN PEG TUBE NOTED TO BE 30 MLS - TUBE FEED CONTINUOUSLY GOING PER ORDER. NO S/SX OF ACUTE DISTRESS. PATIENT VOID 800 MLS OF YELLOW URINE VIA SUPRA PUBIC CATH - APPEARS TO BE WORKING WELL. LUNG SOUNDS COARSE - NO CHANGE. WILL CONTINUE TO MONITOR.
[2019-01-17 04:19] LABS: BASOPHILS ABSOLUTE AUTO 0.05 K/mm3 (0.00-0.23); BASOPHILS PERCENT AUTO 1 % (0-2); EOSINOPHILS ABSOLUTE AUTO 0.21 K/mm3 (0.00-0.68); EOSINOPHILS PERCENT AUTO 2 % (0-6); Hematocrit 35.9 % (33.0-51.0); Hemoglobin 10.8 g/dL (11.5-16.0); IMMATURE GRAN ABSOLUTE AUTO 0.03 K/mm3 (0.00-0.10); IMMATURE GRAN PERCENT AUTO 0 % (0-1); LYMPHOCYTES ABSOLUTE AUTO 2.55 K/mm3 (0.84-5.20); LYMPHOCYTES PERCENT AUTO 28 % (21-46); MONOCYTES PERCENT AUTO 7 % (4-13); Mean Corpuscular HGB 28.2 pg (26.0-34.0); Mean Corpuscular HGB Conc 30.1 g/dL (31.5-36.5); Mean Corpuscular Volume 94 fL (80-100); Mean Platelet Volume 8.7 fL (9.1-12.4); NEUTROPHILS ABSOLUTE AUTO 5.54 K/mm3 (1.96-9.15); NEUTROPHILS PERCENT AUTO 62 % (41-73); Platelet Count 303 K/mm3 (150-400); RDW Coefficient Variation 17.2 % (11.7-14.2); RDW Standard Deviation 59.8 fL (35.1-46.3); Red Blood Cell Count 3.83 M/mm3 (3.80-5.20); White Blood Cell Count 8.98 K/mm3 (4.00-11.30)
[2019-01-17 04:33] LABS: International Normalized Ratio 2.31; Prothrombin Time Results 22.7 Sec (9.7-11.5)
[2019-01-17 04:37] LABS: Albumin, Blood 2.2 g/dL (3.4-5.0); Anion Gap 6 mmol/L (6-16); Blood Urea Nitrogen 16 mg/dL (8-24); Bun/Creatinine Ratio 61.3 (12.0-20.0); CO2, Blood 30 mmol/L (21-32); Calcium, Blood 8.1 mg/dL (8.5-10.1); Chloride, Blood 113 mmol/L (98-108); Creatinine, Blood 0.26 mg/dL (0.40-1.00); Glomerular Filtration Rate >60 (60-); Glucose, Blood 92 mg/dL (70-99); Phosphorus, Blood 2.2 mg/dL (2.5-4.9); Potassium, Blood 3.7 mmol/L (3.5-5.5); Sodium, Blood 149 mmol/L (136-145)
--- NOTE | 2019-01-17 06:18 | NUR ---
PCU NOC SHIFT SUMMARY PATIENT REMAINS AT BASELINE - NONVERBAL AND NO EYE CONTACT. NO ACUTE CHANGES NOTED. PATIENT MEDICATED FOR PAIN PRN DUE TO INCREASED HEART RATE AND SLIGHT FEVER. L/S COARSE. TRACH COLLOR IN PLACE, PATIENT SUCTIONED OFTEN THROUGH IN LINE SUCTIONG. PATIENT VERY RESTFUL T/O SHIFT AND TURNED Q2 TURN. MENDEZ CATH DRAINING LARGE SEDIMENTED CLOUDY YELLOW URINE. PEG TUBE FEEDING REMAINS CONTINUOUS.
--- NOTE | 2019-01-17 07:34 | NUR ---
BLOOD CULTURES NOTIFIED MD ZARCO OF YEAST GROWTH PER LAB IN BLOOD CULTURES.
--- NOTE | 2019-01-17 17:34 | NUR ---
END OF SHIFT; PT TURNED EVERY TWO HOURS TODAY. HAS REPEATED SUCTIONING FOR LOW O2 SATS. COPIOUS AMOUNTS OF THICK WHITE SECRETIONS. SEE'S PATIENT THIS AM AND NEW ORDERS FOR LABS AND MEDS RECEIVED. SUPRAPUBIC CATH IS FLUSHED AND IS DRAINING DARK YELLOW URINE. [facility] ONTINUE TO MONITOR THIS PATIENT UNTIL REPORT AND H AND OFF TO NOC SHIFT RN.
--- NOTE | 2019-01-18 03:24 | NUR ---
PCU NIGHTSHIFT ASSUMED CARE OF PT APPROX. 1900. PT NONVERBAL, AND ONLY RESPONDS TO PHYSICAL STIMULI AT THIS TIME. TRACH IN PLACE WITH SUCTION AVALIBLE. SUCTIONED NEEDED. PEG TUBE IN PLACE, PATENT, TUBE FEEDING RUNNING AT THIS TIME. TURNED TUBE FEEDING OFF 30 MINUTES PRIOR TO TURNING PT. S.P. CATHETER IN PLACE, PATENT AND DRAINING. CONTINUE TO TURN PT EVYER 2 HOURS. ASSESSMENT COMPLETED, VITAL SIGNS STABLE. HEART RHYTHM SINUS TACHYCARDIA WITH HEART RATE IN 120'S. NO S/SX OF ACUTE DISTRESS OR DISCOMFORT AT THIS TIME. BED IN LOW POSITION, WILL CONTINUE TO MONITOR.
[2019-01-18 05:34] LABS: BASOPHILS ABSOLUTE AUTO 0.05 K/mm3 (0.00-0.23); BASOPHILS PERCENT AUTO 1 % (0-2); EOSINOPHILS ABSOLUTE AUTO 0.25 K/mm3 (0.00-0.68); EOSINOPHILS PERCENT AUTO 3 % (0-6); Hematocrit 37.9 % (33.0-51.0); Hemoglobin 11.8 g/dL (11.5-16.0); IMMATURE GRAN ABSOLUTE AUTO 0.04 K/mm3 (0.00-0.10); IMMATURE GRAN PERCENT AUTO 0 % (0-1); LYMPHOCYTES ABSOLUTE AUTO 3.11 K/mm3 (0.84-5.20); LYMPHOCYTES PERCENT AUTO 32 % (21-46); MONOCYTES ABSOLUTE AUTO 0.55 K/mm3 (0.16-1.47); MONOCYTES PERCENT AUTO 6 % (4-13); Mean Corpuscular HGB 28.1 pg (26.0-34.0); Mean Corpuscular HGB Conc 31.1 g/dL (31.5-36.5); Mean Platelet Volume 8.6 fL (9.1-12.4); NEUTROPHILS ABSOLUTE AUTO 5.76 K/mm3 (1.96-9.15); NEUTROPHILS PERCENT AUTO 59 % (41-73); Platelet Count 284 K/mm3 (150-400); RDW Standard Deviation 55.8 fL (35.1-46.3); White Blood Cell Count 9.76 K/mm3 (4.00-11.30)
[2019-01-18 05:35] LABS: Mean Corpuscular Volume 90 fL (80-100)
--- NOTE | 2019-01-18 05:43 | NUR ---
SHIFT SUMMARY PT STATUS REMAINS UNCHANGED FROM MORNING ASSESSMENT. PT CONTINUED TO OPEN EYES TO PHYSICAL STIMULI AND DOES NOT TRACK. TRACH REMAINS IN INTACT AND IN PLACE, SUCTIONED NEEDED. PEG TUBE REMAINS IN INTACT AND IN PLACE. TUBE FEEDING CONTINUES RUNNING, TUNRED OFF 30 MINUTES BEFORE TURNING PATIENTS. S.P. CATHERTER REMAINS IN PLACE, INTACT AND DRAINING. REPOSTIONED PT EVERY TWO HOURS. ASSESSMENT FINDINGS UNCHANGED. VITALS SIGNS REMAIN STABLE. HEART RHYTHM SINUS TACHYCARDIA 120'S-130'S. BED IN LOW POSTION. NO S/SX OF ACUTE DISTRESS OR DISCOMFORT. WILL CONTINUE TO MONITOR UNTIL HANDOFF TO DAYSHIFT RN.
[2019-01-18 05:48] LABS: International Normalized Ratio 1.79
[2019-01-18 05:56] LABS: Albumin, Blood 2.5 g/dL (3.4-5.0); Anion Gap 7 mmol/L (6-16); Blood Urea Nitrogen 15 mg/dL (8-24); Bun/Creatinine Ratio 58.8 (12.0-20.0); CO2, Blood 29 mmol/L (21-32); Calcium, Blood 8.2 mg/dL (8.5-10.1); Chloride, Blood 108 mmol/L (98-108); Creatinine, Blood 0.26 mg/dL (0.40-1.00); Glomerular Filtration Rate >60 (60-); Glucose, Blood 94 mg/dL (70-99); Phosphorus, Blood 2.5 mg/dL (2.5-4.9); Potassium, Blood 3.9 mmol/L (3.5-5.5); Sodium, Blood 144 mmol/L (136-145)
--- NOTE | 2019-01-18 17:23 | NUR ---
END OF SHIFT; PT HAD NO ACUTE CHANGES IN CONDITION NOTED DURING DAY SHIFT. NEW ORDERS RECEIVED FOR MEDS FROM . PT IS NOW ON LACTATED RINGERS X 2 BAGS AND HYDROCODONE TID X 2 DAYS. PER MD SHE THINKS PATIENT MAY BE IN PAIN AND THAT IS WHY SHE IS TACHYCARDIC. PT IS TURNED EVERY TWO HOURS AND TUBE FEEDING INFUSING AT 80ML AN HOUR WITH 300 FREE WATER BOLUS Q4. PT IS NOTED TO HAVE LOW GRADE FEVER OFF AND ON DURING DAY. SKIN TURNS DARK PURPLE IN COLOR ON HER FACE. AWARE. [facility] ONTINUE TO MONITOR THIS APTIENT UNTIL REPORT AND HAND OFF TO NOC SHIFT RN.
--- NOTE | 2019-01-19 00:17 | NUR ---
PCU NIGHTSHIFT ASSUMED CARE OF PT APPROX. 1900. PT NONVERBAL, AND ONLY RESPONDS TO PHYSICAL STIMULI AT THIS TIME. TRACH IN PLACE WITH SUCTION AVALIBLE. SUCTIONED NEEDED. PEG TUBE IN PLACE, PATENT, TUBE FEEDING RUNNING AT THIS TIME. TURNED TUBE FEEDING OFF 30 MINUTES PRIOR TO TURNING PT, PT TURNED EVERY 2 HOURS. SUPRAPUBIC CATHERTER IN PLACE, PATENT AND DRAINING. ASSESSMENT COMPLETED, VITAL SIGNS STABLE. HEART RHYTHM SINUS TACHYCARDIA WITH HEART RATE IN 120'S. NO S/SX OF ACUTE DISTRESS OR DISCOMFORT AT THIS TIME. BED IN LOW POSITION, WILL CONTINUE TO MONITOR.
[2019-01-19 04:17] LABS: BASOPHILS ABSOLUTE AUTO 0.07 K/mm3 (0.00-0.23); BASOPHILS PERCENT AUTO 1 % (0-2); EOSINOPHILS ABSOLUTE AUTO 0.21 K/mm3 (0.00-0.68); EOSINOPHILS PERCENT AUTO 3 % (0-6); Hematocrit 34.3 % (33.0-51.0); Hemoglobin 10.4 g/dL (11.5-16.0); IMMATURE GRAN ABSOLUTE AUTO 0.03 K/mm3 (0.00-0.10); IMMATURE GRAN PERCENT AUTO 0 % (0-1); LYMPHOCYTES ABSOLUTE AUTO 2.89 K/mm3 (0.84-5.20); LYMPHOCYTES PERCENT AUTO 35 % (21-46); MONOCYTES ABSOLUTE AUTO 0.47 K/mm3 (0.16-1.47); MONOCYTES PERCENT AUTO 6 % (4-13); Mean Corpuscular HGB 28.3 pg (26.0-34.0); Mean Corpuscular HGB Conc 30.3 g/dL (31.5-36.5); Mean Platelet Volume 8.3 fL (9.1-12.4); NEUTROPHILS ABSOLUTE AUTO 4.64 K/mm3 (1.96-9.15); NEUTROPHILS PERCENT AUTO 56 % (41-73); Platelet Count 210 K/mm3 (150-400); RDW Coefficient Variation 16.7 % (11.7-14.2); RDW Standard Deviation 57.2 fL (35.1-46.3); Red Blood Cell Count 3.67 M/mm3 (3.80-5.20); White Blood Cell Count 8.31 K/mm3 (4.00-11.30)
[2019-01-19 04:18] LABS: Mean Corpuscular Volume 94 fL (80-100)
[2019-01-19 04:31] LABS: International Normalized Ratio 1.64; Prothrombin Time Results 16.6 Sec (9.7-11.5)
[2019-01-19 04:37] LABS: Alanine Aminotransfer (ALT/SGP 26 U/L (12-78); Albumin, Blood 2.3 g/dL (3.4-5.0); Albumin/Globulin Ratio 0.6 (0.8-1.8); Alk Phos 173 U/L (50-136); Anion Gap 5 mmol/L (6-16); Aspartate Aminotrans (AST/SGOT 12 U/L (12-37); Bilirubin, Total 0.2 mg/dL (0.1-1.0); Blood Urea Nitrogen 12 mg/dL (8-24); Bun/Creatinine Ratio 51.1 (12.0-20.0); CO2, Blood 33 mmol/L (21-32); Calcium, Blood 8.2 mg/dL (8.5-10.1); Chloride, Blood 108 mmol/L (98-108); Creatinine, Blood 0.24 mg/dL (0.40-1.00); Globulin, Blood 3.7 g/dL (2.2-4.0); Glomerular Filtration Rate >60 (60-); Glucose, Blood 92 mg/dL (70-99); Potassium, Blood 3.7 mmol/L (3.5-5.5); Sodium, Blood 146 mmol/L (136-145)
--- NOTE | 2019-01-19 05:12 | NUR ---
SHIFT SUMMARY PT STATUS REMAINS UNCHANGED FROM MORNING ASSESSMENT. PT CONTINUED TO OPEN EYES TO PHYSICAL STIMULI, BUT DOES NOT TRACK. TRACH REMAINS IN INTACT AND IN PLACE, SUCTIONED NEEDED. PEG TUBE REMAINS IN INTACT AND IN PLACE. TUBE FEEDING CONTINUES RUNNING, TUNRED OFF 30 MINUTES BEFORE TURNING PATIENTS. SUPRAPUBIC CATHERTER REMAINS IN PLACE, INTACT AND DRAINING. REPOSTIONED PT EVERY TWO HOURS. VITALS SIGNS REMAIN STABLE. HEART RHYTHM SINUS TACHYCARDIA 100'S -120'S. BED IN LOW POSTION. NO S/SX OF ACUTE DISTRESS OR DISCOMFORT. WILL CONTINUE TO MONITOR UNTIL HANDOFF TO DAYSHIFT RN.
--- NOTE | 2019-01-19 11:40 | NUR ---
Assumed Care: Assumed care of pt at approx 0700. VSS. In no apparent sign of distress. Pt is alert, but is non-verbal. Tracks somewhat with eyes. Does not moan or make any noise and does not appear to have any unmet needs at this time. Started TF per orders and afer discussing TF orders with dietary this AM, flushes set to 300mls Q4H and Mihai from dietary will DC the 60ml flush that is ordered. Attends in place are CDI. Trach collar delivering 28% FiO2. Pt required suction x2 this AM for excessive secretions. See shift assessment for detailed assessment. No caregiver at bedside at this time. Pt currently resting in bed with call light within reach. Will continue to monitor.
--- NOTE | 2019-01-19 17:39 | NUR ---
Shift Summary No acute changes since initial shift assessment. VSS. In no apparent sign of distress. Pt has remained alert and responds to verbal stimuli, but is non-verbal. No other acute changes t/o the shift. Pt has overall had an uneventful day. Pt has been repositioned every two hours. Tube feedings infusing per orders. Pt currently resting in bed with call light within reach. No apparent unmet needs at this time. No acute changes on tele, and no changes made to trach collar settings.
--- NOTE | 2019-01-19 19:18 | NUR ---
Changed TF bags at start of shift today at 0800 and then again at 1600.
--- NOTE | 2019-01-20 02:02 | NUR ---
PCU NIGHTSHIFT ASSUMED CARE OF PT APPROX. 1900. ASSESSMENT COMPLETED, VITAL SIGNS STABLE. PT HEART RHYTHM SINUS TACHYCARDIA 90'S-100'S. PT NONVERBAL, RESPONDS TO PHYSICAL STIMULI. TRACH IN PLACE WITH SUCTION AVALIBLE. SUCTIONED NEEDED. PEG TUBE IN PLACE, PATENT, AND TUBE FEEDING RUNNING AT THIS TIME. TURNED TUBE FEEDING OFF 30 MINUTES PRIOR TO TURNING PT, PT TURNED EVERY [address] HOURS[address] SUPRAPUBIC CATHERTER IN PLACE, PATENT AND DRAINING. NO S/SX OF ACUTE DISTRESS OR DISCOMFORT AT THIS TIME. BED IN LOW POSITION, WILL CONTINUE TO MONITOR.
--- NOTE | 2019-01-20 05:07 | NUR ---
SHIFT SUMMARY PT STATUS REMAINS UNCHANGED FROM MORNING ASSESSMENT. PT CONTINUED TO OPEN EYES TO PHYSICAL STIMULI, BUT DOES NOT TRACK. TRACH REMAINS IN INTACT AND IN PLACE, SUCTIONED NEEDED. PEG TUBE REMAINS IN INTACT AND IN PLACE. TUBE FEEDING CONTINUES RUNNING, TUNRED OFF 30 MINUTES BEFORE TURNING PATIENTS. TUBE FEEDING BAGS AND TUBING CHANGED AT 0200. SUPRAPUBIC CATHERTER REMAINS IN PLACE, INTACT AND DRAINING. REPOSTIONED PT EVERY TWO HOURS. VITALS SIGNS REMAIN STABLE. HEART RHYTHM SINUS TACHYCARDIA 90'-100'S. BED IN LOW POSTION. NO S/SX OF ACUTE DISTRESS OR DISCOMFORT. WILL CONTINUE TO MONITOR UNTIL HANDOFF TO DAYSHIFT RN.
[2019-01-20 06:01] LABS: International Normalized Ratio 1.72; Prothrombin Time Results 17.4 Sec (9.7-11.5)
--- NOTE | 2019-01-20 18:47 | NUR ---
SHIFT SUMMARY PT RESTING IN BED THROUGHOUT THE DAY. VSS. MORE ALERT THIS MORNING, BUT RESTING AND APPEARS RELAXED THIS AFTERNOON. PT TOLERATING MEDS AND TUBE FEED VIA PEG TUBE. NO SIGNS OF PAIN THROUGHOUT THE DAY. TRACH WITH IN LINE SUCTION IN PLACE. PT SUCTIONED PRN WITH WHITE SPUTUM. PER RESPIRATORY THERAPY, INNER CANNULA OF TRACH WAS CHANGED TODAY. SISTER VISITED THIS EVENING, REQUESTING A AIR FLOW BED IF PT NEEDS TO STAY FOR LONGER. SUPRAPUBIC CATHETER DRAINING CLOUDY YELLOW URINE. PT CHECKED AND REPOSITIONED Q2 HOURS, TUBE FEED WAS HELD 30 MINUTES PRIOR TO REPOSITIONING. WILL CONTINUE TO MONITOR.
[2019-01-21 05:20] LABS: International Normalized Ratio 3.01; Prothrombin Time Results 28.9 Sec (9.7-11.5)
--- NOTE | 2019-01-21 05:50 | NUR ---
SHIFT SUMMARY- PT HAS REMAINED AT BASELINE MENTATION THROUGHOUT THE NIGHT, CONTINUES TO OPEN EYES SPONTANTIOUSLY, BUT DOES NOT TRACK OR FOLLOW DIRECTION. EXTREMITIES REMAIN CONTRACTED. VSS. MOSTLY COOPERATIVE WITH CARE- THOUGH DOES CLAMP DOWN TEETH WHEN ATTEMPTING ORAL CARE ADN ORAL SUCTIONING, ACCORDING TO CAREGIVER THIS IS HER BASELINE. SUPRAPUBIC CATHETER WAS LEAKING AROUND TUBING AND INTO ATTENDS, BALLOON DEFLATED AND REINFLATED WITH ASSISTANCE FROM PUBLIC EMPLOYMENT MEDIATOR- SP DRAINING BETTER, BUT REQUIRES SOME REPOSITIONING OF CATHETER TUBE FOR MAXIMUM OUTPUT. POWERGLIDE DRESSING AND CAPS CHANGED THIS AM. HUMIDIFIER REMAINS IN PLACE OVER TRACH COLLAR. RT TITRATED PT TO RA, O2 SATS HAVE REMAINED >90% ON RA. INLINE SUCTION USED PRN WITH WHITE FROTHY SECRETIONS NOTED. NO OTHER CHANGES FROM INITIAL ASSESSMENT. WILL CONTINUE TO MONITOR AND REPORT TO ONCOMING SHIFT RN. BED IN LOW POSITION.
--- NOTE | 2019-01-21 13:53 | NUR ---
NOTE PT RESTING QUIETLY. SR/ST. HR HIGH AT 130. CONTINIOUS BIOX ON. BP STABLE. PT HAS HAD COMPANY FROM HER RETIREMENT ALL MORNING. PT LONG-TERM DIRECTOR WAS HERE FOR SEVERAL HOURS WELL. TRACH CARE DONE. TRACH TIE REPLACED. LEFT NECK OPSITE CD&I. NO SWELLING, REDNESS OR DRAINAGE NOTED. PEG TUBE PATENT. INFUSING DILUTED JEVITY 1.2 AT 80 ML/HR. UNABLE TO CHANGE TUBE FEEDING BAG D/T THE HOSPITAL BEING OUT OF THE TUBE SETS. PT HAD A LARGE GREENISH LIQUID BM. TURNED Q2H EXTREMETIES SUPPORTED ON PILLOWS PER HOME PROTOCOL. PT FACE VERY FLUSHED BUT NO FEVER NOTED. FAN ON. CONTINUE POT.
--- NOTE | 2019-01-21 22:30 | NUR ---
HEART RATE IN THE 130'S-140'S NURSE PRACTIONER URDDY NOTIFED OF PATIENT'S HEART RATE TRENDING IN THE 130'S-140'S. TYLENOL AND ULTRAM GIVEN APPROX ONE HOUR BEFORE. HEART RATE STILL RAPID. AN ORDER FOR A 500 ML BOLUS OF 1/2 NORMAL SALINE WAS GIVE.
--- NOTE | 2019-01-21 23:51 | NUR ---
UPDATE NURSE PRACTIONER RUDDY NOTIFIED THAT PATIENT'S HEART RATE CONTINUES TO BE IN THE 130'S-140'S. PATIENT CONTINUES TO BE AFEBRILE EVEN WHEN FAN NOT ON AND BLOWING IN PATIENT'S FACE. NURSE PRACTIONER RUDDY STATED THAT HE WOULD TALK WITH DR HAWTHORNE ABOUT THIS SITUATION AND THAT DR HAWTHORNE WOULD REVIEW THE PATIENT'S CHART AND ENTER ANY ORDERS IF HE FELT IT WAS NEEDED.
[2019-01-22 04:00] LABS: International Normalized Ratio 3.97; Prothrombin Time Results 37.1 Sec (9.7-11.5)
--- NOTE | 2019-01-22 05:56 | NUR ---
TRANSFER ORDER UPDATE ORDER WAS RECIEVED FROM DR. ZARCO ON JANUARY 14, 2019 TO TRANSFER PATIENT FROM MEDICAL STATUS TO PCU STATUS. ORDER WAS PLACED AND OBSERVED TO BE CANCELLED DUE TO DUPLICATE ORDERS ON JANUARY 21, 2019. ADMISSIONS AND FUN HOUSE OPERATOR CONTACTED AND PT REMAINS PCU STATUS. NEW ORDER PLACED TO KEEP STATUS CURRENT. UNABLE TO BACKDATE THIS ORDER TO DATE OF ORIGINAL PCU TRANSFER ORDER. PLEASE NOTE THAT THIS PATIENT IS PCU STATUS AND HAS BEEN SINCE 01/14/19 AT 1826.
--- NOTE | 2019-01-22 07:37 | NUR ---
SHIFT SUMMARY PATIENT CONTINUES TO BE NON-VERBAL THROUGHOUT THE NIGHT. PATIENT APPEARED TO SLEEP WELL THROUGHOUT THE NIGHT. PATIENT CONTINUED TO HAVE A HEART RATE IN THE 130'S-140'S SO IV LOPRESSOR WAS GIVEN PER DR HAWTHORNE ORDERS. THIS BROUGHT THE HEART RATE DOWN TO THE LOW 100'S AND IT NOW APPEARS TO BE IN THE ONE-TEENS ON TELE. TRACH CARE PER ORDERS, ORAL CARE PROVIDED. CONTINUOUS FEEDINGS WITH FLUSHES RUNNING PER ORDERS. RESIDUALS HAVE BEEN 0 ML'S. PATIENT TURNED Q2H, CAREGIVER IN TO ASSIST WITH TURNING AND CHANGES WHEN NEEDED. VITAL SIGNS CHARTED. REPORT GIVEN TO ONCOMING RN.
--- NOTE | 2019-01-22 19:26 | NUR ---
SHIFT SUMMARY Assumed care of pt at 0700. Report received from Brittany HERNÁNDEZ. Pt on trach collar. Pt wakes up during repositioning but does not stay awake for long. Pt on continuous oximetry. Repositioned Q2H with assist from caregivers from [facility]. Pt's mother in to see pt today. Pt also cared for by Leslie KRISHNA and Shahid KRISHNA today. Trach care done this shift. Pt required suctioning only one time this shift. Bed maintained in lowest position. Call light in reach. Report given to Brittany dodge RN.
[2019-01-23 04:29] LABS: International Normalized Ratio 3.26
--- NOTE | 2019-01-23 07:50 | NUR ---
SHIFT SUMMARY PATIENT CONTINUES TO BE NON-VERBAL AND CONTRACTURED. PATIENT APPEARED TO SLEEP WELL THROUGHOUT THE NIGHT LAST NIGHT. TRACH CARE PROVIDED, MENDEZ APPEARED PATENT AND WAS DRAINING WELL. ORAL CARE PROVIDED. PATIENT TURNED Q2H AND HER CAREGIVERS CAME TO HELP REPOSITON PATIENT AND TO HELP CHANGE PATIENT IF IT WAS NEEDED. PATIENT SUCTIONED PRN THROUGHOUT THE NIGHT. PATIENT'S HEART RATE APPEARED TO REMAIN IN THE LOW 100'S THROUGHOUT MOST OF THE NIGHT BUT HAS STARTED TO CLIMB INTO THE 120'S IN THE PAST SEVERAL HOURS. VITAL SIGNS CHARTED. REPORT GIVEN TO ONCOMING RN.
--- NOTE | 2019-01-23 13:49 | NUR ---
[facility] Assumed care of pt at 0700. Report recieved from Brittany HERNÁNDEZ. Pt on trach collar with 28% FiO2. Pt lethargic. HR 130s. Dr Polk notified when he was in room to see the patient. New orders entered by provider. Discussed pt's BP with provider, OK to hold AM midodrine. Bed in lowest position. Call light in reach. Pt's caregiver at bedside since 0800.
--- NOTE | 2019-01-23 17:35 | NUR ---
SHIFT SUMMARY Pt's HR responded well to PT propranolol, decreasing to 105-110 from 130s. Call placed to Dr Polk to notify of improved heart rate and to discuss blood pressures. New orders given. No additional changes to shift assessment. Pt has remained lethargic for entire shift, awakening breifly during repositioning and then falling back asleep. Pt has required suctioning by this RN only three times this shift. No nonverbal indications of pain. Will continue to closely monitor until care handoff and bedside report with oncoming RN.
--- NOTE | 2019-01-23 20:10 | NUR ---
ASSUMED CARE REPORT RECIEVED. PT IS LAYING IN BED WITH EXTREMITIES SUPPORTED BY PILLOWS. PT SLIGHTLY OPENS EYES TO VERBAL STIMULI. PT UNABLE TO TRACK OR FOLLOW COMMANDS. PT WITH HX OF MS. PT WITH CONTRACTURES TO BUE. TRACH IS C/D/I. FIO2 28%. VITAL SIGNS STABLE AT THIS TIME, HR 110-120'S. PG TO LORENA C/D/I, SALINE LOCKED. PEG C/D/I WITH TF AT 80 ML/HR GOAL RATE. SUPRA PUBIC CATH C/D/I WITH CLEAR YELLOW OUTPUT NOTED. ATTENDS IN PLACE. PT SKIN FLUSHED QUICKLY WHEN FAN IS TURNED AWAY. PT WITH CAREGIVERS ROUNDING Q2H TO ASSIST WITH TURNS/ADL'S. WILL CONTINUE TO MONITOR.
[2019-01-24 04:14] LABS: International Normalized Ratio 1.91; Prothrombin Time Results 19.1 Sec (9.7-11.5)
--- NOTE | 2019-01-24 05:53 | NUR ---
SHIFT SUMMARY NO ACUTE CHANGES THIS SHIFT. PT HAS REMAINED UNCHANGED IN RESPONSE TO VERBAL STIMULI. PT REMAINS ON 28% FIO2 VIA TRACH. VITAL SIGNS HAVE REMAINED STABLE. PG TO [place] SALINE LOCKED. PEG C/D/I WITH TF AT 80 ML/HR GOAL RATE. SUPRA PUBIC CATH C/D/I, GOOD URINE OUTPUT THIS SHIFT. CARE GIVERS ROUNDED THROUGHOUT THE SHIFT TO ASSIST WITH REPOSITIONING. WILL CONTINUE TO MONITOR AND REPORT OFF TO ONCOMING RN.
--- NOTE | 2019-01-24 10:17 | NUR ---
BEGINNING OF SHIFT Assumed care at 0700. Report recieved from Yeyo HERNÁNDEZ. Pt on trach collar with 28% FiO2. Pt febrile this AM. Dr Polk aware. Sinus tachycardia with rate in 120s-130s. Heart rate and BP discussed with provider. Bed in lowest position. Call light in reach. Caregivers in to assist with repositioning Q2H.
[2019-01-24 11:09] LABS: BASOPHILS ABSOLUTE AUTO 0.04 K/mm3 (0.00-0.23); BASOPHILS PERCENT AUTO 0 % (0-2); EOSINOPHILS ABSOLUTE AUTO 0.17 K/mm3 (0.00-0.68); EOSINOPHILS PERCENT AUTO 2 % (0-6); Hematocrit 32.9 % (33.0-51.0); Hemoglobin 9.9 g/dL (11.5-16.0); IMMATURE GRAN ABSOLUTE AUTO 0.04 K/mm3 (0.00-0.10); IMMATURE GRAN PERCENT AUTO 0 % (0-1); LYMPHOCYTES PERCENT AUTO 9 % (21-46); MONOCYTES ABSOLUTE AUTO 0.64 K/mm3 (0.16-1.47); MONOCYTES PERCENT AUTO 6 % (4-13); Mean Corpuscular HGB 27.7 pg (26.0-34.0); Mean Corpuscular HGB Conc 30.1 g/dL (31.5-36.5); Mean Corpuscular Volume 92 fL (80-100); NEUTROPHILS ABSOLUTE AUTO 8.24 K/mm3 (1.96-9.15); NEUTROPHILS PERCENT AUTO 82 % (41-73); Platelet Count 153 K/mm3 (150-400); RDW Coefficient Variation 17.1 % (11.7-14.2); RDW Standard Deviation 57.5 fL (35.1-46.3); Red Blood Cell Count 3.57 M/mm3 (3.80-5.20); White Blood Cell Count 10.03 K/mm3 (4.00-11.30)
[2019-01-24 11:22] LABS: Anion Gap 6 mmol/L (6-16); Blood Urea Nitrogen 19 mg/dL (8-24); Bun/Creatinine Ratio 42.4 (12.0-20.0); CO2, Blood 28 mmol/L (21-32); Calcium, Blood 8.6 mg/dL (8.5-10.1); Chloride, Blood 102 mmol/L (98-108); Creatinine, Blood 0.45 mg/dL (0.40-1.00); Glomerular Filtration Rate >60 (60-); Glucose, Blood 140 mg/dL (70-99); Potassium, Blood 4.3 mmol/L (3.5-5.5); Sodium, Blood 136 mmol/L (136-145)
--- NOTE | 2019-01-24 18:16 | NUR ---
SHIFT SUMMARY No acute changes since shift assessment. Pt has not had any family visit today. Will continue to closely monitor until care handoff and bedside report with oncoming RN.
--- NOTE | 2019-01-25 06:09 | NUR ---
SHIFT SUMMARY- PT HAS REMAINED AT BASELINE MENTATION THROUGHOUT THE NIGHT, NON-VERBAL, UNABLE TO FOLLOW DIRECTION AND TRACK. O2 SATS HAVE REMAINED >90% WITH TRACH COLLAR IN PLACE ON 7L O2 AND 28% FIO2; ATTEMPTED ROOM AIR TRIAL LAST NIGHT- PT UNABLE TO MAINTAIN SATS >90% ON RA, CURRENTLY ON 7L AND 28% FIO2. ONE ELEVATED TEMPERATURE THAT DECREASED WITHIN 45 MINUTES WITH COOL AIR AND BLANKET REMOVAL. PT TURNED Q2 WITH ASSISTANCE FROM [facility] CARE[facility]IV[facility]. SP CATHETER REMAINS IN PLACE AND DRAINING TO GRAVITY WITH CLOUDY, YELLOW URINE. TUBE FEEDING CONTINUES TO INFUSE AT 80 ML/HR GOAL RATE. NO OTHER CHANGES FROM INITIAL ASSESSMENT. WILL CONTINUE TO MONITOR AND REPORT TO ONCOMING SHIFT RN. BED IN LOW POSITION, CALL LIGHT IN REACH.
[2019-01-25 06:19] LABS: International Normalized Ratio 1.77; Prothrombin Time Results 17.8 Sec (9.7-11.5)
--- NOTE | 2019-01-25 09:36 | NUR ---
AM NOTE PT TUNRING WITH ASSIST FROM [facility] COMPLETED. HOB 30 DEGREES+. CHANGED SUCTION CANNISTERS X2, SUCTION TUBING X2, YONKER, PISTON SYRINGE AND CANNISTER. ORAL CARE DONE. BITE BLOCK USED. PT OPENED HER EUES AND RELAXED HER JAW. ORAL MUCOSA MOIST AND PINK. TONGUE PINK. NO WHITE PLAQUE NOTED. CAHNGED HER FENTAYTL PATCH PLACED UPPER LEFT CHEST. TURNED FAN OFF AND FOUND HER TEMP ONHER RIGHT SIDE TO BE 101.1 HER LEFT SIDE 98.1. MEDCICATED WITH TYLENOL THROUGH PEG TUBE. PEG TUBE CLEANED WITH PEPSI. BUILD UP INSIDE TUBE BETTER. JEVITY 1.5 DILUTED. INFUSING AT 80 ML/HR WITH 300 ML OF WATER Q4H. CAHNGED DOUBLE BAG SYSTEM AT 0830 PER ORDER. SUPRABPUBIC CATH NOT LEAKING SO FAR. DRAINING CLEAR YELLOW URINE. RED AREA NOTED ON LEFT FA. MARCHES HER CHEEKS IN COLOR. NOT WARM. BLANCHES. DR OBRIEN LOOKED AT IT. AREA IS SOFT. WILL CONTINUE TO ASSESS SITE NEEDED. CONTINUE POT.
--- NOTE | 2019-01-25 13:51 | NUR ---
NOTE PT RESTING WITH EYES CLOSED. PT TUBE FEEDING STOP COCK CAME UNPLUGGED. PT NEEDED A BED CHANGE. CHECKED VS WHILE IN. HAD GIVEN MIDODRINE EARLIER. SBP IMPROVED SOME. HR LOW 90'S WITH TURNING. PT RIGHT AND LEFT SIDE TEMPERATURE MATCH. SHE HAD GOOSEBUMPS BUT STILL LOOKED FLUSHED. PLACED A WARM BLANKET. PT NOT RESPONSIVE THIS AM DURING MORNING CARE. MORE FLACCID AND FLOPPY. TUBE FEEDING HELD FOR UP COMING TURN. RESP. THERAPY AT BEDSIDE FOR BREATHING TREATMENT. SUCTIONED TWICE TODAY FOR FROTHY THIN SPUTUM. PT SUPRABPUBIC CATHETER HAD LEAKED. SMALL URINE OUTPT. PT HAD AN ELEVATED TEMPERATURE EARLIER TODAY.MEDICATED WITH TYLENOL PER PEG TUBE. DR OBRIEN AWARE. NO ORDERS. CONTINUE POT.
--- NOTE | 2019-01-25 14:15 | NUR ---
NOTE CALLED DR OBRIEN FOR CARE UPDATE. TALKED WITH DR OBRIEN ABOUT LOC, FLACCIDITY, LOW OUTPT. NO ORDERS RECEIVED. CONTINUE POT.
[2019-01-26 03:51] LABS: BASOPHILS ABSOLUTE AUTO 0.02 K/mm3 (0.00-0.23); BASOPHILS PERCENT AUTO 0 % (0-2); EOSINOPHILS ABSOLUTE AUTO 0.12 K/mm3 (0.00-0.68); EOSINOPHILS PERCENT AUTO 2 % (0-6); Hematocrit 32.6 % (33.0-51.0); Hemoglobin 9.9 g/dL (11.5-16.0); IMMATURE GRAN ABSOLUTE AUTO 0.02 K/mm3 (0.00-0.10); IMMATURE GRAN PERCENT AUTO 0 % (0-1); LYMPHOCYTES ABSOLUTE AUTO 1.06 K/mm3 (0.84-5.20); LYMPHOCYTES PERCENT AUTO 15 % (21-46); MONOCYTES ABSOLUTE AUTO 0.62 K/mm3 (0.16-1.47); MONOCYTES PERCENT AUTO 9 % (4-13); Mean Corpuscular HGB Conc 30.4 g/dL (31.5-36.5); Mean Corpuscular Volume 92 fL (80-100); Mean Platelet Volume 8.8 fL (9.1-12.4); NEUTROPHILS ABSOLUTE AUTO 5.31 K/mm3 (1.96-9.15); NEUTROPHILS PERCENT AUTO 74 % (41-73); NRBC ABSOLUTE 0.02 K/mm3 (0.00-0.02); NRBC Auto 0.3 /100 WBC (0.0-0.2); Platelet Count 212 K/mm3 (150-400); RDW Coefficient Variation 17.2 % (11.7-14.2); RDW Standard Deviation 58.3 fL (35.1-46.3); Red Blood Cell Count 3.54 M/mm3 (3.80-5.20); White Blood Cell Count 7.15 K/mm3 (4.00-11.30)
[2019-01-26 04:07] LABS: International Normalized Ratio 2.26; Prothrombin Time Results 22.2 Sec (9.7-11.5)
--- NOTE | 2019-01-26 06:24 | NUR ---
SHIFT SUMMARY- PT HAS REMAINED AT BASELINE ORIENTATION THROUGHOUT THE NIGHT, NONVERBAL BUT RESPONSIVE TO TOUCH AND SOME VERBAL STIMULI. PT WILL SPONTANIOUSLY OPEN EYES AND OPEN EYES WHEN CARE IS BEING PROVIDED. KANGAROO PUMP DOUBLE BAG CHANGED AT 0030 THIS AM. BP HAS REMAINED SLIGHTLY HYPOTENSIVE THROUGHOUT THE NIGHT, WITH MAP REMAINING HIGHER THAN 65 MMHG, ALL OTHER VSS. O2 HAS REMAINED >90% THROUGHOUT THE SHIFT ON 7L AND 28% FIO2 VIA TRACH COLLAR. SP CATHETER FLUSHED WITH STERILE SALINE PER ORDERS, ENABLED DRAINAGE OF FROTHY, YELLOW URINE WITH SEDIMENT NOTED. NO NONVERBAL S/SX OF DISCOMFORT THROUGHOUT SHIFT. TEMPERATURE HAS REMAINED <100 THROUGHOUT SHIFT. TUBE FEEDING CONTINUES TO INFUSE AT 80 ML/HR. NO OTHER CHANGES FROM INITIAL ASSESSMENT. WILL CONTINUE TO MONITOR AND REPORT TO ONCOMING SHIFT RN. BED IN LOW POSITION, HOB >30 DEGREES. PT APPEARS TO BE RESTING COMFORTABLY.
--- NOTE | 2019-01-26 18:56 | NUR ---
SUMMARY PT WITH EYES OPEN. RIGHT AND LEFT EYE DEVIATION WITH NYSTAGMUS NOTED RIGHT EYE. SOME SPASMING OF HER LEGS NOTED AT TIMES. SR WITH HR 90'S. HELD PROPANALOL D/T DECREASED SBP. HR 115 BPM OR LESS TODAY. FACE FLUSHED. EARLY AM TEMPERATURE NOTED. MEDICATED X2 WITH TYLENOL. PT WAS VERY FLACCID AND MINIMALLY RESPONSIVE DURING THE AFTERNOON. ABOUT 1600 SHE OPENED HER EYES AND BECAME MORE STIFF. LUNGS COARSE T/O. TRACH CARE DONE. TRACH CARE TIE CHANGED. PEG TUBE INFUSING WITH JEVITY 1.5 DILUTED AT 80ML/HR. NO BM TODAY. SHE HAD 3 YESTERDAY. LEFT UE POWER GLIDE PATENT. TURNED WITH Q2H WITH HELP FROM [facility]. TF HELD 30 MIN PRIOR TO ALL TURNING OR CLEANING. CONTINUE POT.
--- NOTE | 2019-01-27 06:45 | NUR ---
SHIFT SUMMARY PT HAS REMAINED AT BASELINE MENTATION THROUGHOUT THE NIGHT, NONVERBAL AND RESPONSIVE TO VERBAL STIMULI AND TOUCH. SPONTANIOUS EYE OPENING THROUGHOUT MOST OF THE NIGHT WITH R NYSTAGMUS NOTED ON ASSESSMENT. PT HAS REMAINED AFEBRILE, BUT CONTINUES TO HAVE EPISODES OF UPPER BODY AND FACIAL FLUSHING. PT TITRATED TO RA LAST NIGHT AND HAS TOLERATED WELL WITH SATS REMAINING >90%. PT WILL HAVE OCCASIONAL DESATURATIONS TO 88-89% WHEN SUCTIONING IS NEEDED. PT CONTINUES TO HAVE LARGE AMOUNTS OF FROTHY, WHITE SECRETIONS. PT MEDICATED ONCE WITH TYLENOL FOR PAIN WITH FLACC SCORE OF 4. ELEVATED HEART RATE OF 130'S DECREASED WITH MEDICATION, BUT REMAINS TACHYCARDIC IN LOW 100'S. PT REPOSITIONED Q2 WITH CAREGIVER FROM [facility]. PEG TUBE CONTINUES TO INFUSE WITH JEVITY 1.5 @ 80 ML/HR CONTINUOUSLY. NO OTHER CHANGES FROM INTIIAL ASSESSMENT, WILL CONTINUE TO MONITOR AND REPORT TO ONCOMING SHIFT RN. BED IN LOW POSITION.
--- NOTE | 2019-01-27 10:30 | NUR ---
AM ASSESSMENT: Pt laying in bed with trach collor on at 28%. In line suction completed and small amount of yellow/green sputum suctioned out. Pt eyes are open but in a fixed stare. Will blink her eyes with repositioning and movement. Pt very stiff with contractures of her BLE. SP cath draining yellow urine with sediment. Will flush with Starile water. TF with diluted jevity 1.5 running at goal rate of 80ml/hr. Placed on hold 30min prior to turning. Pt repositioned this am and had very large, liquid green BM. BP stable, HR tachy at this time in 120's. Will treat per orders. Caregiver in room. Will monitor and treat.
--- NOTE | 2019-01-27 11:45 | NUR ---
update: SP cath flushed with 40 cc sterile H2O. Tube feeding lines changed. Trach care done and inner canula changed. Pt was repostioned. Stable at this time.
[2019-01-27 12:23] LABS: International Normalized Ratio 3.63; Prothrombin Time Results 34.2 Sec (9.7-11.5)
--- NOTE | 2019-01-27 19:51 | NUR ---
shift summary: Pt was just repositioned again with caregiver and RN. Pt has been repositioned Q2 hours throughout the shift. LS are course and diminished. HR has been tachy on and off, 110-130's today. Was treated per orders. TF running per orders and placed on pause 1/2 hour prior to all repositions. SP catheter draining urine throughout the shift. Some sediment. Was flushed with sterile water per orders. Trach care was completed today and inner canula changed. Pt has contractures that are unchanged. Pt had a temp this am but is afebrial at this time. No acute changes. Report given to night RN.
[2019-01-28 04:13] LABS: International Normalized Ratio 3.33; Prothrombin Time Results 31.6 Sec (9.7-11.5)
--- NOTE | 2019-01-28 06:37 | NUR ---
SHIFT SUMMARY PT NONVERBAL. Q2HR TURNS. NO S/S OF PAIN. MENDEZ DRAINING. FLUSHED C STERILE WATER. CONTINUOUS TF. IN-LINE SUCTIONED TRACH. UMPQUA HOMES COMING ON ODD HOURS. SHE WAS ABLE TO SLEEP THROUGH NIGHT.
--- NOTE | 2019-01-28 18:43 | NUR ---
SHIFT SUMMARY PT RESTING IN BED THROUGHOUT THE DAY. VSS. WAKES TO VERBAL STIMULI AND REPOSITIONING. GROSS MOTOR MOVEMENT NOTED TO EXTREMITIES AT TIMES. LUNG SOUNDS COARSE / DIM THROUGHOUT. TRACH IN PLACE WITH IN LINE SUCTION, TRACH CARE COMPLETED, PT SUCTIONED PRN PRODUCING WHITE FROTHY SPUTUM. TACHYCARDIA RATE 100s-120s THROUGHOUT THE DAY. SUPRAPUBIC CATHETER DRAINING CLOUDY YELLOW URINE, FLUSHED WITH 60 ML WATER. PEG TUBE TO LEFT ABDOMEN, CONTINUOUS TUBE FEEDING PROVIDED, HELD 30 MINUTES PRIOR TO CHECK AND REPOSITION. WILL CONTINUE TO MONITOR.
[2019-01-29 04:18] LABS: International Normalized Ratio 2.99; Prothrombin Time Results 28.7 Sec (9.7-11.5)
--- NOTE | 2019-01-29 05:07 | NUR ---
SHIFT SUMMARY PT NONVERBAL AT BASELINE, UNABLE TO ASSESS ORIENTATION. LUNG SOUNDS COARSE T/O. TRACH COLLAR W/ IN-LINE SUCTIONING OF WHITE FROTHY SPUTUM. TRACH FIO2 28%. SPO2 > 90%. MONITOR SHOWS SINUS TACHYCARDIA, HR 100-120. PT NPO, RECEIVING CONTINUOUS JEVITY 1.5 TUBE FEEDING VIA PEG TUBE. TF INFUSING @ GOAL RATE OF 80 MLS/HR W/ 300 MLS WATER FLUSH Q4H. SUPRAPUBIC CATH DRAINING CLOUDY YELLOW URINE. PT EXTREMETIES CONTRACTED. Q2H REPOSITIONING PROVIDED. ATTENDS CLEAN AND DRY W/ NO BM THIS SHIFT. WILL CONTINUE TO MONITOR AND PROVIDE CARE UNTIL REPORT OFF TO DAY SHIFT RN.
--- NOTE | 2019-01-29 08:37 | NUR ---
Assumed Care: Assumed care of pt at approx 0700. VSS. In no apparent sign of distress. Pt is non-verbal and responds to verbal stimuli. See shift assessment for detailed assessment. Pt suctioned x2 this AM and irrigated trevizo w/out difficulty. Pt repositioned during assessment after TF was placed on hold for 30min. Attends in place are CDI. Minimal residual noted when checked (approx 20ml) and reinstilled. Pt currently resting in bed with call light within reach. No apparent unmet needs at this time. Will continue to monitor.
--- NOTE | 2019-01-29 10:15 | NUR ---
changed inner trach cannula by corrie alegria rn
--- NOTE | 2019-01-29 12:55 | NUR ---
Advance Care Planning: guest services representative and have asked Palliative Care to follow up with this patient's caregivers and family to determine if they are willing to place patient on comfort care and hospice. guest services representative is aware that the pt has a guardian and a mother and sister that make decisions for the patient. Spoke to bedside nurse. The patient is well known to PCU nurses. Nurse reports that her concern is that the patient has NOT returned to baseline. Nurse reports that pt will ususally give some resistance to turning/repositioning and oral care. This is the same concern that the bedside nurse expressed when I was working with the pt on Saturday, 4 days ago. Vitals look okay today, but pt is not 'herself.' Call placed to Tawana Hare, nurse for [facility]. She reports that the patient does not have a separate guardian for decision making, rather, the mother and the pt's sister are joint guardians and make decisions together. Updated Tawana on patient's status today. She states that the family "is never willing to do hospice, they always want treatment for her." Call placed to mother Almanzar. She reports that pt has POLST form at Dr. Li' office, and also with Tawana Hare. Jenelle confirms that she and the patient's sister, Lissette, make choices for her. She feels she has planned for the patient's illness in advance. Reported to her that pt has not competely returned to her baseline. Instructed that this may be a NEW baseline for her, or she could possibly return to [id number]-status. Jenelle suggests that I also call and talk to her daughter, Lissette. Called and spoke to Lissette. Reviewed same. Confirmed that family has planned for future illness with the POLST form. She feels that their plan is in place and does not want to change that. A change in mental status would be noted, however, plans to change care would not be considered at this time. Called and left message at Dr. Li' office with request to return call. Will plan to follow up with PCP for continuity of care and to report my conversations with the family re: advance care planning. Will remain available.
--- NOTE | 2019-01-29 13:48 | NUR ---
Advance Care Planning: Dr. Willy Li returned call to this Palliative nurse. He reports that he has worked with this family for years. They have been unwilling to change care to anything that is not full treatment,"full court press." He states that he has spent hours on multiple visits reviewing planning with the family. He reports that the best way to approach family is to sit down - plan for more than an hour to speak with the family - with Abbie present and take the family through the assessment. He states that in his experience, the family believes that "we can do anything to fix whatever" [medical care]. He states that this has been a long, difficult case; she has "lasted WAY longer than anyone expected, but she is on borrowed time." Dr. Li reports that he is expecting that pt will have a new baseline everytime she gets sick (again and again) with new and stronger infections. He is concerned about the many antibiotics she has been on, and that they will stop being effective at some point. He believes her to have very little reserve of natural immunity left in her. He is fully expecting her to be back in the hospital for more antibiotics within 24 hours to 6 weeks after discharge from this admission. He is expecting her to do this for the rest of her life with recurrent infections. Dr. Li would like her to come to her appointment next week with Ela, the nurse that takes care of her at [facility], along with the patient's mother and sister so that he can have this time to do some advance care planning with them. He has assisted in filling out POLST forms before, and she has filled out many of them; and changing code status repeatedly. Abbie's next appointment is next at 2:30. He would like me to call Ela and ask her to arrange to have herself and the family at the appointment. The doctor's ultimate goal is to "make sure that when she dies, and she WILL; that everyone has the feeling that it was done appropriately." Call to Ela at [facility]. Voicemail is full, unable to leave message. Will attempt later.
--- NOTE | 2019-01-29 16:25 | NUR ---
Shift Summary No acute changes since initial shift assessment. VSS. Pt continues to appear ill, and has flaccid limbs. Called Dr. Sepulveda to update regarding pt overall appearing ill and flaccid and HR trending up and now averaging in the 120's-130's. No further orders received at this time. Pt has been repositioned every two hours. Minimal residual noted in peg tube when checking periodically t/o the shift. No acute events on tele. No changes made to trach collar settings. Pt has been suctioned with inline suction approx every hour. Pt is currently resting in bed. No apparent unmet needs at this time.
--- NOTE | 2019-01-29 19:40 | NUR ---
TF bag changed at approx 1700.
--- NOTE | 2019-01-30 00:08 | NUR ---
ASSUMED CARE OF PATIENT AT APPROXIMATELY 1915 FROM ALBA Emanuel RN. PATIENT NONVERBAL; LOWER EXT CONTRACTED; BUE FLACCID. EYES OPEN OCCASIONALLY; PATIENT REPOSISTIONED Q2H; ATTENDS IN PLACE FOR INCONTINENCE. STAFF FROM [facility] IN REPOSISTIONING; MULTIPLE PILLOWS REARRANGED TO MAKE PATIENT COMFORTABLE. PEG TUBE FEEDING (JEVITY 1.5) CONTINUOUS AT 80ML/HR; HELD 30 MINUTES PRIOR TO REPOSISTIONING; MINIMAL RESIDUAL. SINUS TACHYCARDIA ON TELE; TRACH IN PLACE; OXYGEN SATURATION ABOVE 90%; SUCTION INLINE NEEDED. PG INFUSING FLUIDS PER ORDER. SUPRAPUBIC CATH DRAINING LARGE AMOUNTS OF YELLOW URINE. PATIENT CURRENTLY RESTING IN BED; CALL LIGHT IN REACH; BED IN LOWEST POSISTION; WILL CONTINUE TO MONITOR AND ASSESS UNTIL END OF SHIFT.
[2019-01-30 04:10] LABS: Hematocrit 37.3 % (33.0-51.0); Mean Corpuscular HGB 27.4 pg (26.0-34.0); Mean Corpuscular HGB Conc 29.5 g/dL (31.5-36.5); Mean Corpuscular Volume 93 fL (80-100); Mean Platelet Volume 8.5 fL (9.1-12.4); NRBC ABSOLUTE 0.03 K/mm3 (0.00-0.02); NRBC Auto 0.3 /100 WBC (0.0-0.2); Platelet Count 404 K/mm3 (150-400); RDW Coefficient Variation 17.2 % (11.7-14.2); Red Blood Cell Count 4.01 M/mm3 (3.80-5.20); White Blood Cell Count 11.34 K/mm3 (4.00-11.30)
[2019-01-30 04:17] LABS: International Normalized Ratio 3.52; Prothrombin Time Results 33.3 Sec (9.7-11.5)
[2019-01-30 04:25] LABS: Albumin, Blood 1.9 g/dL (3.4-5.0); Anion Gap 8 mmol/L (6-16); Blood Urea Nitrogen 14 mg/dL (8-24); Bun/Creatinine Ratio 42.9 (12.0-20.0); CO2, Blood 25 mmol/L (21-32); Calcium, Blood 8.3 mg/dL (8.5-10.1); Chloride, Blood 108 mmol/L (98-108); Creatinine, Blood 0.33 mg/dL (0.40-1.00); Glomerular Filtration Rate >60 (60-); Glucose, Blood 155 mg/dL (70-99); Phosphorus, Blood 3.5 mg/dL (2.5-4.9); Potassium, Blood 4.3 mmol/L (3.5-5.5); Sodium, Blood 141 mmol/L (136-145)
--- NOTE | 2019-01-30 08:24 | NUR ---
Assumed Care: Assumed care of pt at approx 0700. VSS. In no apparent sign of distress. Pt does appear chronically ill, is flaccid and very lethargic. See shift assessment for detailed assessment. No s/sx of discomfort at this time. Nurse from [facility] facility called to determine if catheter and peg tube have been changed since this admit. Pt is currently resting in bed. No apparent unmet needs at this time. Will continue to monitor.
--- NOTE | 2019-01-30 17:05 | NUR ---
Shift Summary: No acute changes or events t/o the shift. Pt has remained flaccid and lethargic t/o the shift. No new orders from Dr. Sepulveda when she rounded on pt. Pt has been repositioned Q2H. No s/sx of discomfort. Pt has remained on 28% FiO2 trach collar and has required inline suction approx every two hours[place]x [id number]. Pt currently resting in bed with call light within reach. Denies any further questions, complaints or requests at this time. WIll continue to monitor until report is given to levon HERNÁNDEZ.
--- NOTE | 2019-01-30 19:50 | NUR ---
ASSUMED CARE PT SLEEPING IN ROOM COMFORTABLY. PER DAY SHIFT NO ACUTE CHANGES IN PT STATUS. [facility] STAFF CONTINUES TO COME AND HELP W/ Q2HR TURNS. PT ON CONTINUOUS TUBE FEEINGS VIA PEG TUBE, SITE C/D/I AND WNL. SUPRAPUBIC CATH NOTED TO BE WNL AND DRAINING CLEAR YELLOW URINE. BUE NOTED TO BE FLACID AT THIS TIME. PILLOWS IN PLACE UNDER BILAT HIPS, LEGS AND ARMS. FAN IN PLACE FOER PT POOR THERMOREGULATION. CALL LIGHT IS IN REACH OF PT. WILL CONT TO MONITOR.
--- NOTE | 2019-01-31 00:47 | NUR ---
CATHETER FLUSHED PER ORDERS CATHETER FLUSHED W/ 50ML STERILE WATER. 50ML REMOVED AFTER FLUSH/ PT TOLERATED WELL. CATHETER BAG EMPTIED AT THIS TIME. SEE NOTES.
[2019-01-31 04:10] LABS: BASOPHILS ABSOLUTE AUTO 0.03 K/mm3 (0.00-0.23); BASOPHILS PERCENT AUTO 0 % (0-2); EOSINOPHILS ABSOLUTE AUTO 0.17 K/mm3 (0.00-0.68); EOSINOPHILS PERCENT AUTO 2 % (0-6); Hematocrit 35.6 % (33.0-51.0); Hemoglobin 10.5 g/dL (11.5-16.0); IMMATURE GRAN ABSOLUTE AUTO 0.11 K/mm3 (0.00-0.10); IMMATURE GRAN PERCENT AUTO 1 % (0-1); LYMPHOCYTES ABSOLUTE AUTO 1.82 K/mm3 (0.84-5.20); LYMPHOCYTES PERCENT AUTO 16 % (21-46); MONOCYTES ABSOLUTE AUTO 1.36 K/mm3 (0.16-1.47); MONOCYTES PERCENT AUTO 12 % (4-13); Mean Corpuscular HGB 27.3 pg (26.0-34.0); Mean Corpuscular HGB Conc 29.5 g/dL (31.5-36.5); Mean Corpuscular Volume 93 fL (80-100); Mean Platelet Volume 8.4 fL (9.1-12.4); NEUTROPHILS ABSOLUTE AUTO 8.17 K/mm3 (1.96-9.15); NEUTROPHILS PERCENT AUTO 70 % (41-73); NRBC ABSOLUTE 0.02 K/mm3 (0.00-0.02); NRBC Auto 0.2 /100 WBC (0.0-0.2); Platelet Count 362 K/mm3 (150-400); RDW Coefficient Variation 17.3 % (11.7-14.2); RDW Standard Deviation 58.8 fL (35.1-46.3); Red Blood Cell Count 3.85 M/mm3 (3.80-5.20); White Blood Cell Count 11.66 K/mm3 (4.00-11.30)
[2019-01-31 04:28] LABS: Anion Gap 7 mmol/L (6-16); Blood Urea Nitrogen 13 mg/dL (8-24); Bun/Creatinine Ratio 34.4 (12.0-20.0); CO2, Blood 27 mmol/L (21-32); Calcium, Blood 8.4 mg/dL (8.5-10.1); Chloride, Blood 110 mmol/L (98-108); Creatinine, Blood 0.38 mg/dL (0.40-1.00); Glomerular Filtration Rate >60 (60-); Glucose, Blood 115 mg/dL (70-99); International Normalized Ratio 2.41; Potassium, Blood 4.2 mmol/L (3.5-5.5); Prothrombin Time Results 23.6 Sec (9.7-11.5); Sodium, Blood 144 mmol/L (136-145)
--- NOTE | 2019-01-31 05:35 | NUR ---
SHIFT SUMMARY PT SLEEPING IN ROOM COMFORTABLY. NO ACUTE CHANGES IN STATUS OVERNIGHT. PEG TUBE SITE C/D/I. JEVITY 1.5 CONTINUOUS FEED. SUPRPUBIC CATH SITE WNL, DRAINING CLEAR YELLOW URINE. RESP EVEN UNLBAORED ON RA, W/ HUMIDIFED AIR VIA T-PIECE. PT APPEARS COMFORTABLE. Q2 TURNS W/ UMPQUA HOMES STAFF. CALL LIGHT IS WITHIN REACH OF PT.
--- NOTE | 2019-01-31 17:32 | NUR ---
SHIFT SUMMARY PT RESTED MOST OF SHIFT WITH RESPIRATIONS EVEN AND UNLABORED. NO ACUTE CHANGES THIS SHIFT. PT HAS BEEN REPOSITIONED Q2H AND ATTENDS CHANGED NEEDED. SKIN C/D/I THROUGHOUT. VS STABLE. ORAL CARE PROVIDED Q2H WITH REPOSITIONING. SUCTIONING PROVIDED NEEDED. FAMILY AT BEDSIDE PART OF SHIFT AND UPDATED. WILL CONTINUE TO MONITOR AND REPORT TO ONCOMING RN.
--- NOTE | 2019-01-31 19:30 | NUR ---
ASSUMED CARE PT SLEEPING IN ROOM COMFORTABLY. PER DAY SHIFT NO CHANGES IN PT STATUS. PT REMAINS ON 26% HUMIDIFIED O2 VIA TRACH. PEG TUBE W/ JEVITY 1.5 CONTINUOUS FEED. SUPRAPUBIC CATH IN PLACE, SITE WNL, DRAINING CLEAR YELLOW URINE. RESP EVEN UNLABORED W/ SATS >90%. PT APPEARS COMFORTABLE AT THIS TIME. NO OUTWARD SIGNS OF DISCOMFORT. CALL LIGHT IS WITHIN REACH OF THE PT.
[2019-02-01 03:58] LABS: International Normalized Ratio 2.15; Prothrombin Time Results 21.3 Sec (9.7-11.5)
--- NOTE | 2019-02-01 05:49 | NUR ---
SHIFT SUMMARY PT SLEEPING IN ROOM COMFORTABLY AT THIS TIME. NO ACUTE CHANGES IN STATUS OVERNIGHT. RESP EVEN UNLABORED ON HUMIDIFIED O2. SATS >92%. PT REQUIRED SEVERAL EPISODES OF SUCTIONING T/O NIGHT. PEG TUBE FEEDING CONTINUOUS, FLUSHES PERFORMED. SUPRAPUBIC CATH FLUSHED/IRRAGATED PER ORDERS. DRAINING CLEAR YELLOW URINE. PT TURNED Q2 HRS W/ [facility] STAFF. CALL LIGHT IS WITHIN REACH OF THE PT.
--- NOTE | 2019-02-01 18:27 | NUR ---
SHIFT SUMMARY PT NONVERBAL AT BASELINE. PT SLEEPING COMFORTABLE THROUGHOUT SHIFT WITH NO SIGNS OR SYMPTOMS OF PAIN. NO ACUTE CHANGES SINCE INITIAL ASSESSMENT. PT HAS BEEN REPOSITIONED Q2H. CATHETER FLUSHED/IRRIGATED PER ORDERS DRAINING CLEAR YELLOW URINE. RESPIRATIONS EVEN AND UNLABORED ON HUMIDIFIED O2 WITH SATS >90%. PT REQUIRED SUCTIONED 3 TIMES THIS SHIFT. WILL CONTINUE TO MONITOR AND REPORT TO ONCOMING RN.
[2019-02-02 03:41] LABS: International Normalized Ratio 1.93; Prothrombin Time Results 19.3 Sec (9.7-11.5)
--- NOTE | 2019-02-02 05:31 | NUR ---
SHIFT SUMMARY PT NONVERBAL AT BASELINE. LETHARGIC, ALERT AT TIMES. UNABLE TO ASSESS ORIENTATION. PT BEDREST AT BASELINE W/ EXTREMETIES CONTRACTED. PT REPOSITIONED Q2H. MONITOR SHOWS NSR/ST, HR70'S-120. LUNG SOUNDS COARSE T/O. SPO2 > 90% W/ TRACH COLLAR FIO2 28%. IN-LINE SUCTIONING OF OCCASSIONAL SMALL AMOUNT WHITE FROTHY SPUTUM. ORAL CARE PROVIDED Q2H D/T PT SLEEPING W/ MOUTH OPEN T/O SHIFT. SUPRA PUBIC CATH DRAINING CLOUDY YELLOW URINE W/ SEDIMENT. PEG TUBE INFUSING JEVITY 1.5 @ GOAL RATE OF 80 MLS/HR W/ 300 ML FLUSH Q4H. TF TURNED OFF 30 MIN PRIOR TO Q2H REPOSITIONING. PT IN BED W/ SIDE RAILS UP X2. WILL CONTINUE TO MONITOR AND PROVIDE CARE UNTIL REPORT OFF TO DAY SHIFT RN.
--- NOTE | 2019-02-02 13:04 | NUR ---
Assumed Care: Assumed care of pt at approx 0700. VSS. In no apparent sign of distress. Pt is lethargic and flaccid. No s/sx of discomfort at this time. See shift assessment for detailed assessment. Pt suctioned 1x during shift change. Lungs are sounding more clear today. Peg TF bags changed and trevizo irrigated per orders. Dr. Sepulveda and DC coordinator at bedside this AM. Pt will not be discharged home today d/t pt not being medically stable enough at this time per Dr. Sepulveda. Nurse Tawana from [facility] notified that pt will not be discharged and Dr. Sepulveda given her number for update. Changed out all suction canisters. Pt currently resting in bed with call light within reach. No apparent unmet needs at this time. Will continue to monitor.
--- NOTE | 2019-02-02 19:39 | NUR ---
Shift Summary No acute changes since initial shift assessment. VSS. In no apparent sign of distress. Dr. Sepulveda came in and spoke to nurse Gilliam from [facility] today regarding pt being medically unstable to [place] home. Pt has been suctioned approx 2x today. Oral care completed approx Q4H. Repositioned Q2H. No acute events t/o the shift. Currently resting in bed with call light within reach. No apparent unmet needs at this time. Will continue to monitor.
[2019-02-03 04:02] LABS: BASOPHILS ABSOLUTE AUTO 0.06 K/mm3 (0.00-0.23); BASOPHILS PERCENT AUTO 0 % (0-2); EOSINOPHILS ABSOLUTE AUTO 0.11 K/mm3 (0.00-0.68); EOSINOPHILS PERCENT AUTO 1 % (0-6); Hematocrit 41.4 % (33.0-51.0); Hemoglobin 12.2 g/dL (11.5-16.0); IMMATURE GRAN ABSOLUTE AUTO 0.18 K/mm3 (0.00-0.10); IMMATURE GRAN PERCENT AUTO 1 % (0-1); LYMPHOCYTES ABSOLUTE AUTO 2.05 K/mm3 (0.84-5.20); LYMPHOCYTES PERCENT AUTO 12 % (21-46); MONOCYTES ABSOLUTE AUTO 1.69 K/mm3 (0.16-1.47); MONOCYTES PERCENT AUTO 10 % (4-13); Mean Corpuscular HGB 26.5 pg (26.0-34.0); Mean Corpuscular HGB Conc 29.5 g/dL (31.5-36.5); Mean Corpuscular Volume 90 fL (80-100); Mean Platelet Volume 8.2 fL (9.1-12.4); NEUTROPHILS ABSOLUTE AUTO 13.38 K/mm3 (1.96-9.15); NEUTROPHILS PERCENT AUTO 77 % (41-73); NRBC ABSOLUTE 0.02 K/mm3 (0.00-0.02); NRBC Auto 0.1 /100 WBC (0.0-0.2); Platelet Count 463 K/mm3 (150-400); RDW Coefficient Variation 17.2 % (11.7-14.2); RDW Standard Deviation 56.8 fL (35.1-46.3); Red Blood Cell Count 4.61 M/mm3 (3.80-5.20); White Blood Cell Count 17.47 K/mm3 (4.00-11.30)
[2019-02-03 04:15] LABS: International Normalized Ratio 2.1; Prothrombin Time Results 20.8 Sec (9.7-11.5)
[2019-02-03 04:32] LABS: Albumin, Blood 1.9 g/dL (3.4-5.0); Anion Gap 10 mmol/L (6-16); Blood Urea Nitrogen 16 mg/dL (8-24); Bun/Creatinine Ratio 40.9 (12.0-20.0); CO2, Blood 26 mmol/L (21-32); Calcium, Blood 8.8 mg/dL (8.5-10.1); Chloride, Blood 102 mmol/L (98-108); Creatinine, Blood 0.39 mg/dL (0.40-1.00); Glomerular Filtration Rate >60 (60-); Glucose, Blood 133 mg/dL (70-99); Phosphorus, Blood 3.4 mg/dL (2.5-4.9); Potassium, Blood 4.1 mmol/L (3.5-5.5); Sodium, Blood 138 mmol/L (136-145)
--- NOTE | 2019-02-03 05:03 | NUR ---
SHIFT SUMMARY PT NONVERBAL @ BASELINE. UNABLE TO ASSESS ORIENATION. PT OPENS EYES OCCASSIONALLY, DOES NOT TRACK MOVEMENT. PT EXTREMETIES CONTRACTED. Q2H REPOSITIONING BY STAFF. PT LUNG SOUNDS COARSE T/O. SPO2 > 90%. TRACH COLLAR W/ FIO2 28%. PT REQUIRING OCCASSIONAL SUCTIONIONING OF FROTHY WHITE SPUTUM W/ IN-LINE SUCTION. ORAL CARE Q2-4H. JEVITY 1.5 INFUSING VIA PEG TUBE @ GOAL RATE OF 80 MLS/HR W/ 300 ML FLUSH Q4H. SUPRAPUBIC CATH DRAINING CLEAR YELLOW URINE. PT HR TACHY @ 160 DURING SHIFT, TX'D SUCCESSFULLY W/ SCHEDULED PROPRANOLOL W/ HR DECREASE TO 110-130. VSS. WILL CONTINUE TO MONITOR AND PROVIDE CARE UNTIL REPORT OFF TO DAY SHIFT RN.
--- NOTE | 2019-02-03 10:21 | NUR ---
The pt has successfully been weaned from oxygen at 28% blow by trache collar to room air, and is maintaining spo2 of greater than 92%. She has required suctioning only once since 0700 today.
--- NOTE | 2019-02-03 10:24 | NUR ---
Tawana, RN from [facility], has been here helping with Abbie's care since 929 this morning. She states that she has been able to elicit some small responses from Abbie, such as hand squeezing in response to questions. I still see no active eye opening or tracking of activity in the room, during our repositioning and care of the patient. Abbie has an occasional cough, and occasional weak flexion of her lower extremities, and just in the last hour some closing of her mouth spontaneously. Tawana states that she would really like Abbie to be discharged today if at all possible.
[2019-02-03] MEDS ORDERED: ALBU2.5V5 NEB (14:58)
[2019-02-03] MEDS ORDERED: Transderm-Scop1 EACH TD (15:03)
[2019-02-03] MEDS ORDERED: PROP10 PT (15:27)
--- NOTE | 2019-02-03 16:27 | NUR ---
Abbie was repositioned, hygeine care performed, and Tylenol was given in anticipation of ride with [facility] transport for discharge home.
--- NOTE | 2019-02-03 17:26 | NUR ---
Pt was taken by stretcher and ambulance to her home. Tawana RN will be called and notified at this time.
== END 2019-02-03 17:29 | disposition home or self-care (01) | DRG 870 ==
LOC: ER 15:00 → ICUE 19:24 → ICUW 19:24 → PCU 19:24 → ICUE 20:56 → ER 20:56 → ICUE 20:59 → PCU 01-03 11:35
PROVIDERS: Emergency Medicine; Family Medicine; Internal Medicine; Internal Medicine Critical Care Medicine; Internal Medicine Infectious Disease; Internal Medicine Pulmonary Disease; Nurse Practitioner Acute Care; Pharmacist; ADMIT Internal Medicine
PROC: 5A1955Z Respiratory Ventilation, Greater than 96 Consecutive Hours (ICD-10-PCS; principal; 2018-12-30)
PROC: 02HV33Z Insertion of Infusion Device into Superior Vena Cava, Percutaneous Approach (ICD-10-PCS; 2018-12-30)
DX: B37.7 Candidal sepsis (principal); J96.22 Acute and chronic respiratory failure with hypercapnia; J96.21 Acute and chronic respiratory failure with hypoxia; G93.41 Metabolic encephalopathy; R53.2 Functional quadriplegia; T83.511A Infection and inflammatory reaction due to indwelling urethral catheter, initial encounter; N17.9 Acute kidney failure, unspecified; N39.0 Urinary tract infection, site not specified; A41.52 Sepsis due to Pseudomonas; R65.20 Severe sepsis without septic shock; Z51.5 Encounter for palliative care; N20.0 Calculus of kidney; G35 Multiple sclerosis; Z86.718 Personal history of other venous thrombosis and embolism; Z79.01 Long term (current) use of anticoagulants; Z66 Do not resuscitate; E86.0 Dehydration; K21.9 Gastro-esophageal reflux disease without esophagitis; F41.8 Other specified anxiety disorders
CPT/HCPCS: 31502; 31720; 36415; 36556; 36600; 51703; 71045; 71046; 76770; 80047; 80048; 80053; 80069; 80076; 80202; 81001; 82330; 82803; 82947; 83605; 83690; 83735; 83880; 84100; 84132; 84145; 85014; 85025; 85027; 85049; 85610; 87040; 87070; 87077; 87086; 87186; 87205; 87486; 87581; 87633; 87798; 94002; 94003; 94640; 94762; 96374; 96375; 99285-25; A9270-GY; C1751; J0610; J0692; J0713; J1450; J1815; J2185; J2248; J2920; J2930; J3370; J3480; J7030; J7050; J7060; J7070; J7120

== ENCOUNTER 2019-05-08 07:32 | Inpatient (IN) | payer OTHER ==
[~2019-05-08] VITALS: Ht 160 cm; Wt 58.2 kg
[~2019-05-08 07:32] MED LIST changes: +**INCOMPLETE MED REC; +A AND D OINTM42.5 GM TOP; +ACET325 PT; +ACIDOPHILUS PR1 EACH PO; +ALBU2.5V5 NEB; +ALBU3IS NEB; +ALUM-MAG HYDRO360 ML PT; +ANTIFUNGAL CREA14 GM TOP; +Artificial Tear15 M4 BOTHEYES; +BACTRIM PT; +CALMOSEPTINE TOP; +CEFD300 PO; +Cyclobenzaprine5 MG PT; +Docu Liqui50 MG/5 ML PO; +EAR WAX DROPS15 ML BOTHEARS; +FENTANYL1 EAC1 TD; +FERROUS SU220 MG/51 PO; +GABA250SO PT; +GAVILAX17 GM PO; +HYDROCORTISON28.4 G3 TOP; +Kenalog60 ML TOP; +LANTISEPTIC TOP; +MIDO5 PT; +Macrobid 100 M100 MG PT; +Metoclopramide H5 MG PO; +POTA20LUD PT; +PROP10 PT; +Pedi-Dri 100,0060 GM TOP; +Preparation H C26 GM PR; +Prevacid Soluta30 MG PT; +TRIPLE ANTIBIO1 EACH TOP; +Transderm-Scop1 EACH TD
[2019-05-08 08:22] LABS: BASOPHILS ABSOLUTE AUTO 0.03 K/mm3 (0.00-0.23); BASOPHILS PERCENT AUTO 0 % (0-2); EOSINOPHILS ABSOLUTE AUTO 0.07 K/mm3 (0.00-0.68); EOSINOPHILS PERCENT AUTO 1 % (0-6); Hematocrit 33.2 % (33.0-51.0); Hemoglobin 9.6 g/dL (11.5-16.0); IMMATURE GRAN ABSOLUTE AUTO 0.03 K/mm3 (0.00-0.10); IMMATURE GRAN PERCENT AUTO 0 % (0-1); LYMPHOCYTES ABSOLUTE AUTO 0.75 K/mm3 (0.84-5.20); LYMPHOCYTES PERCENT AUTO 11 % (21-46); MONOCYTES ABSOLUTE AUTO 0.39 K/mm3 (0.16-1.47); MONOCYTES PERCENT AUTO 6 % (4-13); Mean Corpuscular HGB 25.9 pg (26.0-34.0); Mean Corpuscular HGB Conc 28.9 g/dL (31.5-36.5); Mean Corpuscular Volume 90 fL (80-100); NEUTROPHILS ABSOLUTE AUTO 5.72 K/mm3 (1.96-9.15); NEUTROPHILS PERCENT AUTO 82 % (41-73); NRBC ABSOLUTE 0.03 K/mm3 (0.00-0.02); NRBC Auto 0.4 /100 WBC (0.0-0.2); Platelet Count 102 K/mm3 (150-400); RDW Coefficient Variation 20.4 % (11.7-14.2); RDW Standard Deviation 66.1 fL (35.1-46.3); White Blood Cell Count 6.99 K/mm3 (4.00-11.30)
[2019-05-08] MEDS ORDERED: Acidophilus1 EAC1 PT (08:28)
[2019-05-08] MEDS ORDERED: BIOTENE MOIST44.3 ML PO (08:28)
[2019-05-08] MEDS ORDERED: DOCUSATE PT (08:29)
[2019-05-08] MEDS ORDERED: ALBU3IS INH (08:29)
[2019-05-08] MEDS ORDERED: Fentanyl1 EAC4 TOP (08:30)
[2019-05-08] MEDS ORDERED: Cyclobenzaprine5 MG PT (08:31)
[2019-05-08] MEDS ORDERED: Flonase 0.05% N16 GM (08:31)
[2019-05-08] MEDS ORDERED: FEROSUL220 MG/5 M PT (08:31)
[2019-05-08] MEDS ORDERED: GABAPENTIN250 MG/5 M PT (08:32)
[2019-05-08] MEDS ORDERED: NITR100CA PT (08:32)
[2019-05-08] MEDS ORDERED: GAVILAX17 GM PT (08:33)
[2019-05-08] MEDS ORDERED: MIDO5 PT (08:33)
[2019-05-08] MEDS ORDERED: METO5A PT (08:33)
[2019-05-08] MEDS ORDERED: POTA20LUD PT (08:34)
[2019-05-08 08:35] LABS: International Normalized Ratio 1.59; Prothrombin Time Results 16.2 Sec (9.7-11.5)
[2019-05-08] MEDS ORDERED: PRED5 PT (08:35)
[2019-05-08] MEDS ORDERED: Prevacid Soluta30 MG PT (08:37)
[2019-05-08] MEDS ORDERED: Transderm-Scop1 EACH TOP (08:37)
[2019-05-08 08:38] LABS: Alanine Aminotransfer (ALT/SGP 63 U/L (12-78); Albumin, Blood 2.3 g/dL (3.4-5.0); Albumin/Globulin Ratio 0.5 (0.8-1.8); Alk Phos 262 U/L (50-136); Anion Gap 0 mmol/L (6-16); Aspartate Aminotrans (AST/SGOT 32 U/L (12-37); Bilirubin, Total 0.1 mg/dL (0.1-1.0); Blood Urea Nitrogen 24 mg/dL (8-24); Bun/Creatinine Ratio 51.8 (12.0-20.0); CO2, Blood 37 mmol/L (21-32); Calcium, Blood 8.7 mg/dL (8.5-10.1); Chloride, Blood 108 mmol/L (98-108); Creatinine, Blood 0.46 mg/dL (0.40-1.00); Globulin, Blood 4.3 g/dL (2.2-4.0); Glomerular Filtration Rate >60 (60-); Glucose, Blood 87 mg/dL (70-99); Potassium, Blood 4.7 mmol/L (3.5-5.5); Sodium, Blood 145 mmol/L (136-145); Total Protein, Blood 6.6 g/dL (6.4-8.2)
[2019-05-08] MEDS ORDERED: Artificial Tea1 EACH BOTHEYES ×2 (08:38→14:15)
[2019-05-08] MEDS ORDERED: WARF1 PT (08:38)
[2019-05-08 09:29] LABS: Source, Urine Catheter
[2019-05-08 09:40] LABS: Appearance, Urine Hazy (Clear); Bilirubin, Urine Neg (Neg); Blood, Urine 3+ (Neg); Color, Urine Yellow (P-Yellow); Glucose Qualitative, Urine Neg (Neg); Ketones, Urine Neg (Neg); Leukocyte Esterase, Urine 3+ (Neg); Nitrite, Urine Pos (Neg); Protein, Urine 3+ (Neg); Urobilinogen, Urine NORM (Normal)
[2019-05-08 09:48] LABS: White Blood Cells, Urine 50-100 /hpf (0-5)
[2019-05-08 09:49] LABS: Bacteria Many /hpf; Hyaline Casts 0-2 /lpf (0-2); Squamous Epithelial Cells Rare /hpf (Few)
[2019-05-08] MEDS ORDERED: Systane 0.3-0.1 EACH BOTHEYES (14:15)
--- NOTE | 2019-05-08 15:45 | NUR ---
TRANSFER NOTE SHORTLY UPON ARRIVING TO FLOOR, IT WAS FOUND THAT WE DO NOT HAVE A UROLOGIST FOR HER OBSTRUCTING KIDNEY STONE. TRANSFERING VIA [facility] TO [facility]. REPORT CALLED TO DANIELA, AWAITING AMBULANCE. PT NONVERBAL BUT ANSWERS SIMPLE YES/NO QUESTIONS WITH MINUTE SHAKE/NOD OF HER HEAD. DENIED PAIN. SKIN INTACT, GTUBE, TELE, TRACH TO FIO2 26% TRACH MASK. UMPQUA HOMES FOR HANDICAP CARER AT BEDSIDE.
--- NOTE | 2019-05-10 13:50 | NUR ---
Rec'd a call from Kanika at [facility] requesting ID notes, H&P and cany culture results from pt's last stay. Pt was transferred from [facility] to [facility] on 05/08/19.
== END 2019-05-08 16:28 | disposition short-term general hospital (02) | DRG 689 ==
LOC: ER 07:32 → MEDS 12:30 → ER 13:36 → MEDS 13:58 → ENPENDDIS 15:56 → MEDS 16:28
PROVIDERS: Physician Assistant; ADMIT Internal Medicine
DX: N13.6 Pyonephrosis (principal); R53.2 Functional quadriplegia; J18.9 Pneumonia, unspecified organism; J98.11 Atelectasis; G35 Multiple sclerosis; Z86.718 Personal history of other venous thrombosis and embolism; Z93.0 Tracheostomy status; K21.9 Gastro-esophageal reflux disease without esophagitis
CPT/HCPCS: 31720; 36415; 71045; 74176; 80053; 81001; 83605; 85025; 85610; 85730; 87040; 87077; 87086; 87186; 93005; 93010; 96365-59; 98960; 99285-25; A9270-GY; J1644; J2185

== ENCOUNTER 2019-06-19 09:06 | Emergency (ER) | payer OTHER ==
[~2019-06-19] VITALS: Ht 157.5 cm; Wt 72.6 kg
[~2019-06-19 09:06] MED LIST changes: +Acidophilus1 EAC1 PT; +Artificial Tea1 EACH BOTHEYES; +BIOTENE MOIST44.3 ML PO; +DOCUSATE PT; +FEROSUL220 MG/5 M PT; +Fentanyl1 EAC4 TOP; +GABAPENTIN250 MG/5 M PT; +GAVILAX17 GM PT; +NITR100CA PT; +Systane 0.3-0.1 EACH BOTHEYES; +Transderm-Scop1 EACH TOP; +WARF1 PT
[2019-06-19] MEDS ORDERED: ACET325 PT (10:15)
[2019-06-19] MEDS ORDERED: BISA10S PR (10:16)
[2019-06-19] MEDS ORDERED: IBUP100S PO (10:17)
[2019-06-19] MEDS ORDERED: HYDR1TAB94 PO (10:18)
[2019-06-19] MEDS ORDERED: MIDO5 PT (10:18)
[2019-06-19] MEDS ORDERED: Nystop60 GM (10:19)
[2019-06-19 12:51] LABS: BASOPHILS ABSOLUTE AUTO 0.04 K/mm3 (0.00-0.23); BASOPHILS PERCENT AUTO 0 % (0-2); EOSINOPHILS ABSOLUTE AUTO 0.11 K/mm3 (0.00-0.68); EOSINOPHILS PERCENT AUTO 1 % (0-6); Hematocrit 37.3 % (33.0-51.0); Hemoglobin 11.5 g/dL (11.5-16.0); IMMATURE GRAN ABSOLUTE AUTO 0.04 K/mm3 (0.00-0.10); IMMATURE GRAN PERCENT AUTO 0 % (0-1); LYMPHOCYTES ABSOLUTE AUTO 1.37 K/mm3 (0.84-5.20); LYMPHOCYTES PERCENT AUTO 11 % (21-46); MONOCYTES PERCENT AUTO 6 % (4-13); Mean Corpuscular HGB 29.9 pg (26.0-34.0); Mean Corpuscular HGB Conc 30.8 g/dL (31.5-36.5); Mean Corpuscular Volume 97 fL (80-100); Mean Platelet Volume 8.2 fL (9.1-12.4); NEUTROPHILS ABSOLUTE AUTO 10.59 K/mm3 (1.96-9.15); NEUTROPHILS PERCENT AUTO 82 % (41-73); Platelet Count 208 K/mm3 (150-400); RDW Coefficient Variation 16.5 % (11.7-14.2); RDW Standard Deviation 58.1 fL (35.1-46.3); Red Blood Cell Count 3.85 M/mm3 (3.80-5.20); White Blood Cell Count 12.95 K/mm3 (4.00-11.30)
[2019-06-19 13:14] LABS: Alanine Aminotransfer (ALT/SGP 35 U/L (12-78); Albumin, Blood 2.9 g/dL (3.4-5.0); Albumin/Globulin Ratio 0.6 (0.8-1.8); Alk Phos 201 U/L (50-136); Anion Gap 3 mmol/L (6-16); Aspartate Aminotrans (AST/SGOT 19 U/L (12-37); Bilirubin, Total 0.3 mg/dL (0.1-1.0); Blood Urea Nitrogen 16 mg/dL (8-24); CO2, Blood 35 mmol/L (21-32); Calcium, Blood 9.8 mg/dL (8.5-10.1); Chloride, Blood 104 mmol/L (98-108); Creatinine, Blood 0.52 mg/dL (0.40-1.00); Globulin, Blood 4.5 g/dL (2.2-4.0); Glomerular Filtration Rate >60 (60-); Glucose, Blood 111 mg/dL (70-99); Potassium, Blood 4.4 mmol/L (3.5-5.5); Sodium, Blood 142 mmol/L (136-145); Total Protein, Blood 7.4 g/dL (6.4-8.2)
== END 2019-06-19 16:55 | disposition short-term general hospital (02) ==
LOC: ER 09:06
PROVIDERS: Emergency Medicine
DX: T83.022A Displacement of nephrostomy catheter, initial encounter (principal); N13.2 Hydronephrosis with renal and ureteral calculous obstruction; J18.9 Pneumonia, unspecified organism; G35 Multiple sclerosis; K21.9 Gastro-esophageal reflux disease without esophagitis; F32.9 Major depressive disorder, single episode, unspecified; F41.9 Anxiety disorder, unspecified; Z88.8 Allergy status to other drugs, medicaments and biological substances; Z79.899 Other long term (current) drug therapy
CPT/HCPCS: 36415; 71045; 76770; 80053; 85025; 96365-59; 96367-59; 99285-25; J2185; J3370

== ENCOUNTER 2019-08-17 08:31 | Emergency (ER) | payer OTHER ==
[~2019-08-17] VITALS: Ht 127 cm; Wt 65.3 kg
[~2019-08-17 08:31] MED LIST changes: +IBUP100S PO; +Nystop60 GM
[2019-08-17] MEDS ORDERED: MIRALAX17 GM PO (08:58)
[2019-08-17] MEDS ORDERED: Milk Of Ma400 MG/5 M PO (08:58)
[2019-08-17 11:00] LABS: BASOPHILS ABSOLUTE AUTO 0.08 K/mm3 (0.00-0.23); BASOPHILS PERCENT AUTO 1 % (0-2); EOSINOPHILS ABSOLUTE AUTO 0.42 K/mm3 (0.00-0.68); EOSINOPHILS PERCENT AUTO 3 % (0-6); Hematocrit 37.1 % (33.0-51.0); Hemoglobin 11.4 g/dL (11.5-16.0); IMMATURE GRAN ABSOLUTE AUTO 0.05 K/mm3 (0.00-0.10); IMMATURE GRAN PERCENT AUTO 0 % (0-1); LYMPHOCYTES ABSOLUTE AUTO 1.75 K/mm3 (0.84-5.20); LYMPHOCYTES PERCENT AUTO 13 % (21-46); MONOCYTES ABSOLUTE AUTO 0.51 K/mm3 (0.16-1.47); MONOCYTES PERCENT AUTO 4 % (4-13); Mean Corpuscular HGB 29.1 pg (26.0-34.0); Mean Corpuscular HGB Conc 30.7 g/dL (31.5-36.5); Mean Corpuscular Volume 95 fL (80-100); Mean Platelet Volume 8.8 fL (9.1-12.4); NEUTROPHILS ABSOLUTE AUTO 10.38 K/mm3 (1.96-9.15); NEUTROPHILS PERCENT AUTO 79 % (41-73); Platelet Count 298 K/mm3 (150-400); RDW Coefficient Variation 17.2 % (11.7-14.2); RDW Standard Deviation 60.3 fL (35.1-46.3); Red Blood Cell Count 3.92 M/mm3 (3.80-5.20); White Blood Cell Count 13.19 K/mm3 (4.00-11.30)
[2019-08-17] MEDS ORDERED: HYDR1TAB94 PO (11:43)
== END 2019-08-17 12:29 | disposition home or self-care (01) ==
LOC: ER 08:31
PROVIDERS: Emergency Medicine
DX: S82.141A Displaced bicondylar fracture of right tibia, initial encounter for closed fracture (principal); S82.831A Other fracture of upper and lower end of right fibula, initial encounter for closed fracture; G35 Multiple sclerosis; K21.9 Gastro-esophageal reflux disease without esophagitis; F32.9 Major depressive disorder, single episode, unspecified; F41.9 Anxiety disorder, unspecified; Z86.718 Personal history of other venous thrombosis and embolism; Z88.8 Allergy status to other drugs, medicaments and biological substances; Z79.899 Other long term (current) drug therapy; X58.XXXA Exposure to other specified factors, initial encounter
CPT/HCPCS: 31720; 36415; 73560-RT; 85025; 93971; 99284-25